=== PATIENT | female | born 1965 | race Caucasian/White ===

== ENCOUNTER 2016-03-12 22:21 | Emergency (ER) | payer OTHER ==
[~2016-03-12] VITALS: Ht 170.2 cm; Wt 70.9 kg
[~2016-03-12 22:21] MED LIST: ACET-1311 PO; FLUO40CA8 PO; METH10TA4 PO; MULT-602 PO; NEOM1SUS21 OTR
[2016-03-12 22:23] VITALS: BP 145/81; PULSE 97; TEMP 36.4; O2SAT 98; Ht 170.2 cm; Wt 70.9 kg
[2016-03-12] MEDS ORDERED: ERYTHROMYCIN OP OINT 1 GM PKT OP STA (22:39)
--- NOTE | 2016-03-12 22:42 | EMERGENCY ROOM VISIT NOTE ---
ED Visit Note First contact with patient: 22:27 CHIEF COMPLAINT: Shoulder pain HISTORY OF PRESENT ILLNESS: This 50-year-old female patient presents to the emergency department ambulatory complaining of right shoulder pain. The patient reports that she has had chronic issues with a right shoulder. She states that she "needs surgery." She has been evaluated here for the shoulder pain in the past and states that she was told she needed to follow up with a primary care provider. The patient states she had been planning on moving away , but decided to stay in the area and has still not made an appointment with a primary care provider. She reports she was putting [place] decorations away today and lifted something heavy, causing increase of her pain. She rates her discomfort an 8/10. She denies taking anything at home for her pain. The pain increases with any range of motion of arm. She does have full range of motion of the shoulder. She denies any numbness or weakness of the arm. She denies any chest or back pain. The patient also reports she has some pain and swelling of her left lower eyelid. She reports this started today. She is unsure if she is allergic to something. She denies any trauma to the eye. She denies any drainage from the eye or difficulty with vision. REVIEW OF SYSTEMS: A 6 system review of systems was performed with positives and pertinent negatives in the HPI. ALLERGIES: Toradol, NSAIDs, tramadol MEDICATIONS: See med list PMH: No significant past medical history SOCIAL HISTORY: The patient lives locally with her family. PHYSICAL EXAM: Vital Signs: Reviewed nurse's notes, vital signs stable. GENERAL : This is a 50-year-old female, in no acute distress, but appears to be in pain , well-developed, well-nourished. HEENT: PERRLA, EOMs intact. There is erythema and swelling of the medial left lower lid consistent with a 40 lump. MUSCULOSKELETAL: There is no deformity in the contour of the right shoulder and there are no kvng deformities noted. There is negative sulcus sign. There is tenderness over the anterior shoulder. The patient's range of motion is full. Supraspinatus strength 5/5. There is no clavicle tenderness. No tenderness of the humerus, elbow, wrist, or hand. [employer] strength 5/5. Radial pulse 2+. NECK: No tenderness to palpation over the cervical spine. HEART: Regular rate and rhythm without murmurs gallops or rubs. LUNGS: Clear to auscultation bilaterally without wheezes, rales or rhonchi. No accessory muscle use. No retractions. NEURO: The patient is alert and oriented to person, place, and time. Normal sensation to light and sharp touch. Capillary refill less than 2 seconds. EMERGENCY DEPARTMENT COURSE: I examined the patient. She has been seen here previously for chronic shoulder pain. There has been no new trauma to the shoulder to warrant imaging. Her exam is benign. I initially discussed possibly giving the patient a home pack of medication for her shoulder pain. However, after speaking with the patient it became clear that she was intoxicated. The patient repeated multiple questions and seemed to have a hard time understanding what I was saying. I do not feel comfortable prescribing her any pain medication. I did explain this to her. I did agree to give her a sling and erythromycin ophthalmic ointment for the stye. She was instructed to follow-up with orthopedics or primary care provider. Case management also spoke with the patient and gave her information for local primary care providers. She was informed that the emergency Department is not the appropriate place to seek pain control for chronic pain. She verbalized understanding of my assessment and treatment plan and was discharged home in good condition. The patient was independently evaluated by Dr. Bauman, ED attending physician, who agreed with my assessment and treatment plan. DIAGNOSIS: Shoulder pain, stye Current/Historical Medications Scheduled Fluoxetine (Prozac), 10 MG PO DAILY Fluoxetine (Prozac), 20 MG PO DAILY Methylphenidate (Ritalin), 10 MG PO QAM Methylphenidate (Ritalin), 10 MG PO QD@1200 Multiple Vitamins W/ Minerals (Womens 50+ Multi Vitamin), 1 TAB PO DAILY Scheduled PRN Acetaminophen (Acetaminophen), 1,000 MG PO UD PRN for Pain or Fever Allergies Coded Allergies: Ketorolac (Verified Allergy, Unknown, 03/12/16) Povidone Iodine (Verified Allergy, Unknown, ., 03/12/16) Tramadol (Verified Allergy, Unknown, 03/12/16) Uncoded Allergies: NONSTEROIDAL (Allergy, Unknown, 04/12/09) OPIATEAGONISTS (Allergy, Unknown, 04/12/09) Vital Signs Date Time Temp Pulse Resp B/P Pulse Ox O2 Delivery O2 Flow Rate FiO2 03/12/16 22:23 36.4 97 20 145/81 98 Room Air Medications Administered Medications (Trade) Dose Ordered Sig/Sandra Route Start Time Stop Time Status Last Admin Dose Admin Erythromycin (Erythromycin Oph Oint) 1 appln NOW STAT OP 03/12/16 22:39 03/12/16 22:40 DC 03/12/16 22:39 1 APPLN Departure Information Impression Primary Impression: Chronic right shoulder pain Additional Impression: Hordeolum externum (stye) Dispostion Home / Self-Care Condition GOOD Referrals No Doctor, Assigned (PCP) Cristóbal Villalba D.O. Patient Instructions A Signature Page, [facility] Additional Instructions The emergency department is not able to treat your chronic pain. You have been prescribed Erythromycin Opthalmic ointment. This is an antibiotic ointment which will help prevent an infection from developing in your affected eye. You should apply a 1 cm ribbon of the ointment to the lower part of the affected eye up to 6 times per day for the next 10 days. Wear the sling as needed for your comfort. You should take the arm out of the sling several times daily and perform range of motion exercises. For pain control, you can use the following prbl-ght-nstblyb medicines (if >12 yo): - Regular strength (325mg/tab) Tylenol (acetaminophen) 2 tabs every 4-6 hours as needed. Do not exceed 12 tablets in a 24 hour period. Avoid taking more than 4 grams (4000 mg) of Tylenol per day. This includes any other sources of acetaminophen you may take on a regular basis. - Regular strength (200 mg/tab) Advil (ibuprofen) 1-2 tabs every 4-6 hours as needed. Do not exceed a dose of 3200 mg per day. Follow-up with a primary care provider or orthopedics.
[2016-03-12] MEDS ORDERED: ACET500T57 PO (22:43)
[2016-03-12] MEDS ORDERED: METH10TA4 PO (22:46)
[2016-03-12] MEDS ORDERED: FLUO20CA35 PO (22:48)
[2016-03-12] MEDS ORDERED: FLUO10CA48 PO (22:48)
--- NOTE | 2016-03-12 23:00 | EMERGENCY ROOM VISIT NOTE ---
ED Visit Note First contact with patient: 22:27 I have seen and examined this patient with Candy Balderas and generally agree with the treatment plan as discussed. Current/Historical Medications Scheduled Fluoxetine (Prozac), 10 MG PO DAILY Fluoxetine (Prozac), 20 MG PO DAILY Methylphenidate (Ritalin), 10 MG PO QAM Methylphenidate (Ritalin), 10 MG PO QD@1200 Multiple Vitamins W/ Minerals (Womens 50+ Multi Vitamin), 1 TAB PO DAILY Scheduled PRN Acetaminophen (Acetaminophen), 1,000 MG PO UD PRN for Pain or Fever Allergies Coded Allergies: Ketorolac (Verified Allergy, Unknown, 03/12/16) Povidone Iodine (Verified Allergy, Unknown, ., 03/12/16) Tramadol (Verified Allergy, Unknown, 03/12/16) Uncoded Allergies: NONSTEROIDAL (Allergy, Unknown, 04/12/09) OPIATEAGONISTS (Allergy, Unknown, 04/12/09) Vital Signs Date Time Temp Pulse Resp B/P Pulse Ox O2 Delivery O2 Flow Rate FiO2 03/12/16 22:23 36.4 97 20 145/81 98 Room Air Departure Information Impression Primary Impression: Chronic right shoulder pain Additional Impression: Hordeolum externum (stye) Dispostion Home / Self-Care Condition GOOD Referrals No Doctor, Assigned (PCP) Cristóbal Villalba D.O. Forms HOME CARE DOCUMENTATION FORM, IMPORTANT VISIT INFORMATION Patient Instructions A Signature Page, [facility] Additional Instructions The emergency department is not able to treat your chronic pain. You have been prescribed Erythromycin Opthalmic ointment. This is an antibiotic ointment which will help prevent an infection from developing in your affected eye. You should apply a 1 cm ribbon of the ointment to the lower part of the affected eye up to 6 times per day for the next 10 days. Wear the sling as needed for your comfort. You should take the arm out of the sling several times daily and perform range of motion exercises. For pain control, you can use the following rfer-icf-cwugokr medicines (if >12 yo): - Regular strength (325mg/tab) Tylenol (acetaminophen) 2 tabs every 4-6 hours as needed. Do not exceed 12 tablets in a 24 hour period. Avoid taking more than 4 grams (4000 mg) of Tylenol per day. This includes any other sources of acetaminophen you may take on a regular basis. - Regular strength (200 mg/tab) Advil (ibuprofen) 1-2 tabs every 4-6 hours as needed. Do not exceed a dose of 3200 mg per day. Follow-up with a primary care provider or orthopedics.
== END 2016-03-12 23:03 | disposition home or self-care (01) ==
LOC: C.EDB 22:23 → C.EDA 23:03
DX: M25.511 Pain in right shoulder (principal); G89.29 Other chronic pain; H00.025 Hordeolum internum left lower eyelid; Z88.8 Allergy status to other drugs, medicaments and biological substances; Z79.899 Other long term (current) drug therapy

== ENCOUNTER 2017-03-11 00:05 | Emergency (ER) | payer OTHER ==
[~2017-03-11] VITALS: Ht 170.2 cm; Wt 62.6 kg
[~2017-03-11 00:05] MED LIST changes: -ACET-1311 PO; +ACET500T58 PO; +FLUO10CA48 PO; +FLUO20CA35 PO; -FLUO40CA8 PO; -NEOM1SUS21 OTR
[2017-03-11 00:09] VITALS: Ht 170.2 cm; Wt 62.6 kg
[2017-03-11] MEDS ORDERED: ONDANSETRON INJ 2 MG/ML 2 ML VIAL IV STA (00:28)
[2017-03-11] MEDS ORDERED: CLON1TAB3 PO (00:38)
[2017-03-11] MEDS ORDERED: MoRPHine SULFATE 2 MG/ML CARP IV STA (01:10)
[2017-03-11 01:11] LABS: BASO % 0.5 %; BASO ABS # 0.06 K/uL (0-0.2); EOS % 2.7 %; EOS ABS # 0.36 K/uL (0-0.5); HEMATOCRIT 37.4 % (37-47); IG# 0.02 K/uL (0.00-0.02); LYMPH % 29.1 %; LYMPH ABS # 3.82 K/uL (1.2-3.4); MEAN CELL VOLUME 92.3 fL (80-100); MEAN CORPUSCULAR HEMOGLOBIN 32.1 pg (25-34); MEAN CORPUSCULAR HGB CONC 34.8 g/dl (32-36); MEAN PLATELET VOLUME 11.8 fL (7.4-10.4); MONO % 6.7 %; MONO ABS # 0.88 K/uL (0.11-0.59); NEUT % 60.8 %; NEUT ABS # 7.97 K/uL (1.4-6.5); PLATELET COUNT 196 K/uL (130-400); RED CELL DISTRIBUTION WIDTH CV 12.7 % (11.5-14.5); RED CELL DISTRIBUTION WIDTH SD 43.1 fL (36.4-46.3); WHITE BLOOD COUNT 13.11 K/uL (4.8-10.8)
--- NOTE | 2017-03-11 01:13 | EMERGENCY ROOM VISIT NOTE ---
History First contact with patient: 00:14 Chief Complaint: KIDNEY STONE Stated Complaint: KIDNEY STONE History of Present Illness The patient is a 51 year old female who presents to the Emergency Room with complaints of left sided flank pain and abdominal pain. The patient reports that she has had pain in her left flank radiating into her lower abdomen for the past 1.5 hours. She has a history of kidney stones multiple years ago and does state that she has been told within the past year that she has a stone in the left kidney. She states that her pain comes and goes. She rates the discomfort a 6/10. She did not take anything for her pain tonight. She does report increased urinary frequency and denies any blood in the urine. The patient has had lithotripsy in the past. She does report that she has not had a menstrual period for the past 3 months, but did have some spotting a few weeks ago. She reports some nausea but denies any vomiting. She denies any changes in her bowel movements or fevers. She denies any other medical problems. Review of Systems A complete 10 point review of systems was reviewed with the patient with pertinent positives and negatives as per history of present illness. All else were negative. Past Medical/Surgical History Medical Problems: (1) Anxiety State Nos (2) Attn Deficit W Hyperact (3) Calculus Of Kidney (4) Emphysema Nec (5) Esophageal Reflux (6) Nicotine Dependence, Cigarettes, Uncomplicated Family History FH: cancer FH: heart disease FH: kidney disease Social History Smoking Status: Current Every Day Smoker Alcohol Use: none Drug Use: none Occupation Status: unemployed Current/Historical Medications Scheduled Cefdinir (Omnicef), 300 MG PO Q12H Clonazepam (Klonopin), 1 MG PO HS Fluoxetine (Prozac), 10 MG PO DAILY Fluoxetine (Prozac), 20 MG PO DAILY Methylphenidate (Ritalin), 10 MG PO BID Methylphenidate (Ritalin), 5 MG PO QAM Multiple Vitamins W/ Minerals (Womens 50+ Multi Vitamin), 1 TAB PO DAILY Scheduled PRN Acetaminophen (Acetaminophen), 1,000 MG PO UD PRN for Pain or Fever Physical Exam Vital Signs Date Time Temp Pulse Resp B/P (MAP) Pulse Ox O2 Delivery O2 Flow Rate FiO2 03/11/17 03:08 36.7 70 17 152/92 97 03/11/17 01:25 70 17 152/92 97 Room Air 1/4/18 00:09 36.7 83 18 98 Room Air Physical Exam VITALS: Vitals are noted on the nurse's note and reviewed by myself. Vital signs stable. GENERAL: This is a 51-year-old female, slightly anxious appearing, very thin. SKIN: The skin was without rashes. HEART: Regular rate and rhythm without murmurs gallops or rubs. LUNGS: Clear to auscultation bilaterally without wheezes, rales or rhonchi. ABDOMEN: Positive bowel sounds x 4. Soft, moderate suprapubic tenderness to palpation. Mild left CVA tenderness. No guarding or rebound tenderness. NEURO: Patient was alert and oriented to person place and time. Medical Decision & Procedures ER Provider Diagnostic Interpretation: CT ABDOMEN AND PELVIS WITHOUT CONTRAST: No obstructing calculus or hydronephrosis. Multiple nonobstructing bilateral renal calculi, including large staghorn calculus in the upper left kidney. These have increased in size and number since prior. Right renal cysts. Fluid-filled loops of small bowel with question mild wall thickening in the left hemiabdomen. Correlate for enteritis. No evidence of bowel obstruction. No free air. Normal appendix. Radiologist: Seferino Morrow MD Laboratory Results 03/11/17 01:02 Red Blood Count 4.05, Mean Corpuscular Volume 92.3, Mean Corpuscular Hemoglobin 32.1, Mean Corpuscular Hemoglobin Concent 34.8, Mean Platelet Volume 11.8, Neutrophils (%) (Auto) 60.8, Lymphocytes (%) (Auto) 29.1, Monocytes (%) (Auto) 6.7, Eosinophils (%) (Auto) 2.7, Basophils (%) (Auto) 0.5, Neutrophils # (Auto) 7.97, Lymphocytes # (Auto) 3.82, Monocytes # (Auto) 0.88, Eosinophils # (Auto) 0.36, Basophils # (Auto) 0.06 03/11/17 01:02 Test 03/11/17 00:46 03/11/17 01:02 Urine Color YELLOW Urine Appearance CLOUDY (CLEAR) Urine pH 7.0 (4.5-7.5) Urine Specific [place] 1.021 (1.000-1.030) Urine Protein NEG (NEG) Urine Glucose (UA) NEG (NEG) Urine Ketones NEG (NEG) Urine Occult Blood 2+ (NEG) Urine Nitrite NEG (NEG) Urine Bilirubin NEG (NEG) Urine Urobilinogen NEG (NEG) Urine Leukocyte Esterase LARGE (NEG) Urine WBC (Auto) >30 /hpf (0-5) Urine RBC (Auto) 10-30 /hpf (0-4) Urine Hyaline Casts (Auto) 1-5 /lpf (0-5) Urine Epithelial Cells (Auto) 10-20 /lpf (0-5) Urine Bacteria (Auto) 4+ (NEG) Urine Test NEG (NEG) White Blood Count 13.11 K/uL (4.8-10.8) Red Blood Count 4.05 M/uL (4.2-5.4) Hemoglobin 13.0 g/dL (12.0-16.0) Hematocrit 37.4 % (37-47) Mean Corpuscular Volume 92.3 fL (80-100) Mean Corpuscular Hemoglobin 32.1 pg (25-34) Mean Corpuscular Hemoglobin Concent 34.8 g/dl (32-36) Platelet Count 196 K/uL (130-400) Mean Platelet Volume 11.8 fL (7.4-10.4) Neutrophils (%) (Auto) 60.8 % Lymphocytes (%) (Auto) 29.1 % Monocytes (%) (Auto) 6.7 % Eosinophils (%) (Auto) 2.7 % Basophils (%) (Auto) 0.5 % Neutrophils # (Auto) 7.97 K/uL (1.4-6.5) Lymphocytes # (Auto) 3.82 K/uL (1.2-3.4) Monocytes # (Auto) 0.88 K/uL (0.11-0.59) Eosinophils # (Auto) 0.36 K/uL (0-0.5) Basophils # (Auto) 0.06 K/uL (0-0.2) RDW Standard Deviation 43.1 fL (36.4-46.3) RDW Coefficient of Variation 12.7 % (11.5-14.5) Immature Granulocyte % (Auto) 0.2 % Immature Granulocyte # (Auto) 0.02 K/uL (0.00-0.02) Anion Gap 1.0 mmol/L (3-11) Est Creatinine Clear Calc Drug Dose 107.9 ml/min Estimated GFR () 122.3 Estimated GFR (Non- 105.5 BUN/Creatinine Ratio 27.2 (10-20) Calcium Level 8.4 mg/dl (8.5-10.1) Total Bilirubin 0.2 mg/dl (0.2-1) Aspartate Amino Transf (AST/SGOT) 21 U/L (15-37) Alanine Aminotransferase (ALT/SGPT) 36 U/L (12-78) Alkaline Phosphatase 63 U/L (45-117) Total Protein 6.8 gm/dl (6.4-8.2) Albumin 3.3 gm/dl (3.4-5.0) Globulin 3.5 gm/dl (2.5-4.0) Albumin/Globulin Ratio 0.9 (0.9-2) Medications Administered Medications (Trade) Dose Ordered Sig/Sandra Route Start Time Stop Time Status Last Admin Dose Admin Ondansetron HCl (Zofran Inj) 4 mg NOW STAT IV 03/11/17 00:28 03/11/17 00:33 DC 03/11/17 01:03 4 MG Morphine Sulfate (MoRPHine SULFATE INJ) 2 mg NOW STAT IV 03/11/17 01:10 03/11/17 01:11 DC 03/11/17 01:14 2 MG Ceftriaxone Sodium (Rocephin Inj) 1 gm NOW STAT IV 03/11/17 01:49 03/11/17 01:50 DC 03/11/17 02:09 1 GM Medical Decision Differential diagnosis includes kidney stone, pyelonephritis, UTI, gastroenteritis, herpes zoster, among others. The patient is a 51-year-old female who presents today complaining of suprapubic pain. Labs revealed a leukocytosis of 13.11. Urinalysis was suggestive of infection, with 4+ bacteria, >30 WBCs, leuk esterase and occult blood. Urine was negative. CT showed no evidence of kidney stone. Patient does appear to have an enteritis. Patient's discomfort is likely due to the UTI. She was given Rocephin and will be placed on Omnicef pending the culture. Patient was encouraged to push fluids and follow up with her PCP. Based on the patient's presentation and work up, I feel the patient is stable for outpatient treatment. The patient was educated to return to the emergency department for any worsening of their current condition, such as fevers, vomiting or new/concerning symptoms. She will follow up with her PCP. The patient was independently evaluated by Dr. Burrell, ED attending physician , who agreed with my assessment and treatment plan. Blood Pressure Screening Patient's blood pressure: Elevated blood pressure Blood pressure disposition: Elevated BP felt to be situational Impression Primary Impression: Urinary tract infection Departure Information Dispostion Home / Self-Care Condition GOOD Prescriptions Cefdinir (OMNICEF) 300 Mg Cap 300 MG PO Q12H for 7 Days, #14 CAP Prov: Candy Balderas ., ASTRID 03/11/17 Referrals No Doctor, Assigned (PCP) Patient Instructions My [facility] Additional Instructions You have been treated in the Emergency Department for a Urinary Tract Infection (UTI). You have been prescribed Omnicef to be taken twice daily for 7 days. This is an antibiotic. All antibiotics have the potential to cause diarrhea. Stop this medication and contact a medical provider if you were to develop any significant adverse side effects including: wheezing, shortness of breath, passing out, vomiting, or a diffuse rash. Always take antibiotics as directed and COMPLETE the ENTIRE course regardless of the improvement of your symptoms. For pain control, you can use the following mucu-krb-pvqnwfs medicines (if >12 yo): - Regular strength (325mg/tab) Tylenol (acetaminophen) 2 tabs every 4-6 hours as needed. Do not exceed 12 tablets in a 24 hour period. Avoid taking more than 4 grams (4000 mg) of Tylenol per day. This includes any other sources of acetaminophen you may take on a regular basis. - Regular strength (200 mg/tab) Advil (ibuprofen) 1-2 tabs every 4-6 hours as needed. Do not exceed a dose of 3200 mg per day. Drink plenty of water and stay well hydrated. As with any trip to the Emergency Department, you should follow-up with your Primary Care Provider from today's visit. Return to the emergency department if your symptoms persist despite treatment plan outlined above or if the following symptoms occur: fevers, chills, back pain, nausea/vomiting, or blood in your urine. Problem Qualifiers Primary Impression: Urinary tract infection Urinary tract infection type: acute cystitis Hematuria presence: with hematuria Qualified Codes: N30.01 - Acute cystitis with hematuria
[2017-03-11 01:39] LABS: ALBUMIN 3.3 gm/dl (3.4-5.0); CALCIUM 8.4 mg/dl (8.5-10.1); CREATININE 0.6 mg/dl (0.60-1.20)
[2017-03-11 01:42] LABS: TOTAL PROTEIN 6.8 gm/dl (6.4-8.2)
[2017-03-11] MEDS ORDERED: CEFTRIAXONE SOD INJ 1 GM ADDVIAL IV STA (01:49)
[2017-03-11] MEDS ORDERED: CEFD300C2 PO (02:48)
[2017-03-11 03:08] VITALS: BP 152/92; PULSE 70; TEMP 36.7; O2SAT 97
--- NOTE | 2017-03-11 05:58 | EMERGENCY ROOM VISIT NOTE ---
ED Visit Note First contact with patient: 00:14 I have personally evaluated and examined this patient. I agree with assessment and plan of Candy Balderas PA-C.
--- NOTE | 2017-03-11 06:21 | DIAGNOSTIC IMAGING REPORT ---
ABD/PELVIS WITHOUT FOR STONE CT DOSE: 528.57 mGy.cm HISTORY: Flank pain left flank pain, hx stones TECHNIQUE: Multiaxial CT images of the abdomen and pelvis were performed without the use of intravenous and oral contrast according to the standard department stone protocol. A dose lowering technique was utilized adhering to the principles of ALARA. COMPARISON STUDY: None. FINDINGS: Lung bases are clear. Liver spleen and pancreas are unremarkable. Kidneys demonstrate bilateral renal nonobstructing calcifications. This includes a partial left renal partial staghorn calculus in the upper pole. There is no evidence for hydronephrosis or obstructing urinary tract calculus. Bowel pattern is nonobstructive. The appendix is normal. The uterus is anteflexed. Bladder is midline. IMPRESSION: Bilateral renal nonobstructing calcifications. No acute process of the abdomen or pelvis. The above report was generated using voice recognition software. It may contain grammatical, syntax or spelling errors. Electronically signed by: Matthieu Mayorga M.D. 03/11/2017 6:20 AM Dictated Date/Time: 03/11/2017 6:18 AM
== END 2017-03-11 03:09 | disposition home or self-care (01) ==
LOC: C.EDB 00:06 → C.EDA 03:09
DX: N30.01 Acute cystitis with hematuria (principal); D72.829 Elevated white blood cell count, unspecified; R03.0 Elevated blood-pressure reading, without diagnosis of hypertension; Z87.442 Personal history of urinary calculi; Z82.49 Family history of ischemic heart disease and other diseases of the circulatory system; Z84.1 Family history of disorders of kidney and ureter

== ENCOUNTER 2017-10-06 22:30 | Emergency (ER) | payer OTHER ==
[~2017-10-06] VITALS: Ht 170.2 cm; Wt 57.9 kg
[~2017-10-06 22:30] MED LIST changes: +CLON1TAB4 PO; +DXY100 PO
[2017-10-06 22:31] VITALS: TEMP 36.9; Ht 170.2 cm; Wt 57.9 kg
--- NOTE | 2017-10-06 23:42 | EMERGENCY ROOM VISIT NOTE ---
History Report prepared by Theron: Mady Foster Under the Supervision of: Dr. Mulu Winkler D.O. First contact with patient: 23:03 Chief Complaint: MENTAL HEALTH EVALUATION Stated Complaint: MENTAL HEALTH EVAL History of Present Illness The patient is a 52 year old female who presents to the Emergency Room for a mental health evaluation. The patient states that she has been with her significant other for 6 years and there was a point that they broke it off, but she is back with him. She states that she got into an argument with her significant others sister and decided to leave instead of fight back with her. She reports that she took the new car she just bought today and left. She reports that she talked to [facility], [employer], [employer], and the people in the [employer] [facility], but no one could help her .The patient states that she was just looking for somewhere to stay. She states that she told the people at the [facility] that she was going to "302 herself" to have somewhere to stay and have "good food." She reports that the woman there told her she had to be suicidal to be 302. She states that she told the woman she was going to tell the she was so she had somewhere to stay. The patient states that all day today she was just on edge because of the situation of having no where to stay, being on her menstrual cycle, having no feminine products, and being hungry. The patient states that she was staying at [facility] when state police picked her up. She reports that they mentioned a 302 so she assumed it was due to what she said at the [facility]. She notes that she was in an inpatient psychiatric facility once before in the . The patient complains of abdominal cramping from her menstrual cycle. The patient denies urinary symptoms, abnormal bowel movements, auditory hallucinations, visual hallucinations, ever having hallucinations, seeing a psychiatrist, recently using drugs, and recently using alcohol. The patient notes that she occasionally has a beer or wine cooler and once in a while smokes some marijuana. Source of History: patient Onset: today Quality: other (mental health) Timing: other (episode) Modifying Factors (Worsening): other (significant other's sister) Associated Symptoms: + abdominal pain (cramping), No urinary symptoms Note: The patient denies abnormal bowel movements, auditory hallucinations, and visual hallucinations. Review of Systems See HPI for pertinent positives & negatives. A total of 10 systems reviewed and were otherwise negative. Past Medical & Surgical Medical Problems: (1) Anxiety State Nos (2) Attn Deficit W Hyperact (3) Calculus Of Kidney (4) Emphysema Nec (5) Esophageal Reflux (6) Nicotine Dependence, Cigarettes, Uncomplicated Family History FH: cancer FH: heart disease FH: kidney disease Social History Smoking Status: Never Smoker Alcohol Use: occasionally Drug Use: marijuana Marital Status: in relationship Occupation Status: unemployed Current/Historical Medications Scheduled Fluoxetine (Prozac), 10 MG PO DAILY Fluoxetine (Prozac), 20 MG PO DAILY Methylphenidate (Ritalin), 10 MG PO BID Methylphenidate (Ritalin), 5 MG PO QAM Multiple Vitamins W/ Minerals (Womens 50+ Multi Vitamin), 1 TAB PO DAILY Scheduled PRN Acetaminophen (Acetaminophen), 1,000 MG PO UD PRN for Pain or Fever Clonazepam (Klonopin), 1 MG PO HS PRN for Sleep Allergies Coded Allergies: Ketorolac (Verified Allergy, Unknown, 10/06/17) Povidone Iodine (Verified Allergy, Unknown, ., 10/06/17) Tramadol (Verified Allergy, Unknown, 10/06/17) Uncoded Allergies: NONSTEROIDAL (Allergy, Unknown, 04/12/09) OPIATEAGONISTS (Allergy, Unknown, 04/12/09) Physical Exam Vital Signs Date Time Temp Pulse Resp B/P (MAP) Pulse Ox O2 Delivery O2 Flow Rate FiO2 10/07/17 00:37 74 93/54 99 Room Air 10/06/17 22:31 36.9 81 18 142/90 97 Room Air Physical Exam HEENT: Head - normocephalic and atraumatic Pupils are equal, round, and reactive to light. Extraocular eye muscles are intact, and sclera are anicteric. Nose - moist nasal mucosa without discharge. Mouth - moist buccal mucosa. Oropharynx is nonerythematous and there is no tonsillar exudate or edema noted. Neck: Supple; no JVD, nuchal rigidity, cervical lymphadenopathy. Heart: Regular rate and rhythm. There is a normal S1 and S2 with no murmurs, clicks, or gallops appreciated. Lungs: Clear to auscultation bilaterally with no wheezes, rales, or rhonchi. Abdomen: Soft, completely nontender, nondistended, with good bowel sounds. There are no palpable pulsatile masses or hepatosplenomegaly. There is no guarding, rigidity, or rebound noted. Extremities: No evidence of cyanosis, clubbing, or edema. There are easily palpable peripheral pulses. Skin: warm and dry with good turgor and no rashes. Psych: Elevated affect at times. Describes making suicidal statements so she could be 302 for the comfort and food. At times appears to be distracted by other voices. Medical Decision & Procedures Laboratory Results 10/06/17 23:40 10/06/17 23:40 Test 10/06/17 23:05 10/06/17 23:40 Urine Color YELLOW Urine Appearance CLEAR (CLEAR) Urine pH 6.5 (4.5-7.5) Urine Specific [place] 1.022 (1.000-1.030) Urine Protein TRACE (NEG) Urine Glucose (UA) NEG (NEG) Urine Ketones NEG (NEG) Urine Occult Blood 1+ (NEG) Urine Nitrite NEG (NEG) Urine Bilirubin NEG (NEG) Urine Urobilinogen NEG (NEG) Urine Leukocyte Esterase LARGE (NEG) Urine WBC (Auto) >30 /hpf (0-5) Urine RBC (Auto) 10-30 /hpf (0-4) Urine Hyaline Casts (Auto) 1-5 /lpf (0-5) Urine Epithelial Cells (Auto) 0-5 /lpf (0-5) Urine Bacteria (Auto) NEG (NEG) Urine Opiates Screen POS (NEG) Urine Methadone, Qualitative NEG (NEG) Urine Barbiturates NEG (NEG) Urine Phencyclidine (PCP) Level NEG (NEG) Ur Amphetamine/Methamphetamine NEG (NEG) MDMA (Ecstasy) Screen NEG (NEG) Urine Benzodiazepines Screen NEG (NEG) Urine Cocaine Metabolite NEG (NEG) Urine Marijuana (THC) NEG (NEG) Red Blood Count 4.18 M/uL (4.2-5.4) Mean Corpuscular Volume 92.6 fL (80-100) Mean Corpuscular Hemoglobin 31.8 pg (25-34) Mean Corpuscular Hemoglobin Concent 34.4 g/dl (32-36) RDW Standard Deviation 42.4 fL (36.4-46.3) RDW Coefficient of Variation 12.5 % (11.5-14.5) Mean Platelet Volume 11.5 fL (7.4-10.4) Anion Gap 9.0 mmol/L (3-11) Est Creatinine Clear Calc Drug Dose 75.2 ml/min Estimated GFR () 98.2 Estimated GFR (Non- 84.8 BUN/Creatinine Ratio 26.3 (10-20) Calcium Level 8.1 mg/dl (8.5-10.1) Total Bilirubin 0.2 mg/dl (0.2-1) Direct Bilirubin < 0.1 mg/dl (0-0.2) Aspartate Amino Transf (AST/SGOT) 38 U/L (15-37) Alanine Aminotransferase (ALT/SGPT) 47 U/L (12-78) Alkaline Phosphatase 74 U/L (45-117) Total Protein 6.7 gm/dl (6.4-8.2) Albumin 3.4 gm/dl (3.4-5.0) Thyroid Stimulating Hormone (TSH) 1.570 uIu/ml (0.300-4.500) Salicylates Level 2.8 mg/dl (2.8-20) Acetaminophen Level 2 ug/ml (10-30) Ethyl Alcohol mg/dL < 3.0 mg/dl (0-3) Laboratory results per my review. ED Course 2309: Past medical records reviewed. The patient was evaluated in room A8. A complete history and physical exam was performed. Labs were drawn as above. The 302 petition was reviewed. 0121: The patient was medically cleared at this time. 0208: I spoke to the senior case manager. He reports that he tried to contact the sister who was the petitioner of the 302 and was unable to get a hold of her. 0223: I reevaluated the patient and she is refusing inpatient psychiatric care. She would like to be discharged into the care of her boyfriend. The senior case manager is going to try to get a hold of her boyfriend. 0350: We were unable to get a hold of the boyfriend at this time. I had a discussion with the patient about her current situation and the concerns of others. The patient is willing to sign herself in voluntarily. 0506: The patient is requesting to go to the [facility]. They are going to search for a bed there. 0602: The patient was accepted at the [facility] and will go by [facility] this morning. Medical Decision The patient is a 52 year old female who presents to the Emergency Room for a mental health evaluation. Differential diagnoses include acute psychosis, drug abuse, mood disorder, thought disorder. LABS: Negative alcohol Tox screen positive for opiates Salicylate level of 2.8 Acetaminophen level of 2 BUN 21 Creatinine 0.8 Glucose 131 Normal TSH Normal H&H Normal white blood cells URINALYSIS: Trace Proteins 1+ blood Large leukocyte esterase Greater than 20 white blood cells 10-30 red blood cells Negative bacteria Will be sent for culture This is a 52-year-old female patient who presents to the emergency department after making some suicidal threats to her sister. Sister petitioned a 302 because she was concerned for the patient's safety. The patient was willing to admit herself voluntarily and agreed that she probably did need some help if others thought it was necessary. She has been accepted at the [facility] and will be transferred there by [facility] this morning. Medication Reconcilliation Current Medication List: was personally reviewed by me Blood Pressure Screening Patient's blood pressure: Elevated blood pressure Blood pressure disposition: Elevated BP felt to be situational Impression Primary Impression: Mood disorder Scribe Attestation The scribe's documentation has been prepared under my direction and personally reviewed by me in its entirety. I confirm that the note above accurately reflects all work, treatment, procedures, and medical decision making performed by me. Departure Information Dispostion Mental Health Acute Care Referrals No Doctor, Assigned (PCP) Patient Instructions [facility]
[2017-10-07 00:11] LABS: HEMATOCRIT 38.7 % (37-47); HEMOGLOBIN 13.3 g/dL (12.0-16.0); MEAN CELL VOLUME 92.6 fL (80-100); MEAN CORPUSCULAR HEMOGLOBIN 31.8 pg (25-34); MEAN CORPUSCULAR HGB CONC 34.4 g/dl (32-36); MEAN PLATELET VOLUME 11.5 fL (7.4-10.4); PLATELET COUNT 215 K/uL (130-400); RED CELL DISTRIBUTION WIDTH CV 12.5 % (11.5-14.5); RED CELL DISTRIBUTION WIDTH SD 42.4 fL (36.4-46.3); WHITE BLOOD COUNT 9.82 K/uL (4.8-10.8)
[2017-10-07 00:44] LABS: BLOOD UREA NITROGEN 21 mg/dl (7-18); GLUCOSE 131 mg/dl (70-99); SODIUM 138 mmol/L (136-145)
[2017-10-07 00:45] LABS: ALBUMIN 3.4 gm/dl (3.4-5.0); ALKALINE PHOSPHATASE 74 U/L (45-117); ALT/SGPT 47 U/L (12-78); AST/SGOT 38 U/L (15-37); CALCIUM 8.1 mg/dl (8.5-10.1); CARBON DIOXIDE 22 mmol/L (21-32); POTASSIUM 3.7 mmol/L (3.5-5.1); TOTAL PROTEIN 6.7 gm/dl (6.4-8.2)
[2017-10-07 07:49] VITALS: BP 124/86; PULSE 76; O2SAT 98
== END 2017-10-07 07:49 ==
LOC: C.EDB 22:31 → C.EDA 10-07 07:49
DX: F39 Unspecified mood [affective] disorder (principal); F41.9 Anxiety disorder, unspecified; F90.9 Attention-deficit hyperactivity disorder, unspecified type; Z79.899 Other long term (current) drug therapy; Z88.8 Allergy status to other drugs, medicaments and biological substances

== ENCOUNTER 2023-07-30 10:01 | Observation (INO) ==
--- NOTE | 2023-07-14 14:07 | Anesthesiology Consultation ---
Date of Service July 14, 2023 Assessment & Plan (1) Encounter for pre-operative examination: - check EKG STAT am DOS. - Per legal officer on 07/14/23: No known infectious disease contacts, current infectious disease symptoms in past 10 days or COVID positive test result in the past 30 days. Chart Review Chart Review: Acceptable Risk for Surgery and Patient NOT seen in Pre Admission Testing History Surgery Operation Date: 07/30/23 12:40 Proposed Procedures p Total Laparoscopic Hysterectomy, Bilateral Salpingo-Oophorectomy, Cystoscopy - Ned Gonzalez MD Height/Weight Height: 5 ft 7.5 in Weight: 61.235 kg Allergies Allergy/AdvReac Type Severity Reaction Status Date / Time ketorolac Allergy Intermediate FACE & Verified 07/14/23 13:06 NECK SWELL povidone-iodine Allergy Intermediate FAMILY HX Verified 07/14/23 13:06 OF ALLERGY tramadol Allergy Intermediate FACE & Verified 07/14/23 13:06 NECK SWELL Medications Home Medications Medication Instructions Recorded Confirmed Last Taken acetaminophen 500 mg tablet 1,000 mg PO TID PRN Pain 07/14/23 07/14/23 Unknown Past Medical History Medical History Abscess of axilla, left hx in 2013. no current issues. denies mrsa. History of hepatitis C unsure when she was diagnosed - treated and no current issues History of kidney stones (2017) Hx of abnormal cervical Pap smear Past Family History Family History Other Kidney stones No family history of adverse response to anesthesia Past Surgical History Surgical History H/O LEEP History of lithotripsy S/P ureteral stent placement Social History Smoking Status: Current every day smoker Smoking cigarettes per day: 15-20 Do You Dip or Chew Tobacco: No Hx Alcohol Use: No Hx Substance Use: No Testing Laboratory Results 07/07/23 WBC: 8.9 H/H: 13/41 PLATELETS: 247,000 SODIUM: 143 POTASSIUM: 4.2 CHLORIDE: 108 CO2: 26 BUN: 14 CREATININE: 0.7 GLUCOSE: 79 Other Testing Carotid doppler 05/13/22 < 50% stenosis ICA Normal duplex evaluation of the internal carotid artery
[2023-07-30] MEDS: LACTATED RINGER'S 1,000 ML IV SCH ×2 (10:45→18:18)
[2023-07-30] MEDS: LR 15ML/HR IV SCH (10:56)
[2023-07-30] MEDS ORDERED: ePHEDrine sulfate 50 MG/ML AMP IV PRN (11:02)
[2023-07-30] MEDS ORDERED: PROMETHAZINE HCL 6.25 MG in SODIUM CHLORIDE 0.9% 50 ML IV PRN (11:02)
[2023-07-30] MEDS ORDERED: ATROPINE SULFATE 0.1 MG/ML 10ML SYR IV PRN (11:02)
[2023-07-30] MEDS ORDERED: ONDANSETRON INJ 2 MG/ML 2 ML VIAL IV PRN (11:02)
--- NOTE | 2023-07-30 11:39 | History & Physical Bridge Note ---
Date of Service July 30, 2023 History & Physical Bridge Note I have examined the patient, reviewed the History & Physical and in the interval since the performance of the History & Physical I have noted the following changes of clinical significance: no changes noted
[2023-07-30] MEDS ORDERED: ONDANSETRON INJ 2 MG/ML 2 ML VIAL ONE (11:40)
[2023-07-30] MEDS ORDERED: SUGAMMADEX SODIUM 200 MG/2 ML VIAL IV ONE (11:40)
[2023-07-30] MEDS ORDERED: fentaNYL citrate PF 100 MCG/2 ML VIAL ONE (11:40)
[2023-07-30] MEDS ORDERED: MIDAZOLAM HCL 1 MG/ML 2ML VIAL ONE (11:40)
[2023-07-30] MEDS ORDERED: ROCURONIUM BROMIDE 10 MG/ML 5 ML VIAL IV ONE ×2 (11:40→13:13)
[2023-07-30] MEDS ORDERED: PROPOFOL IV EMULSION 10 MG/ML 20 ML VIAL IV ONE (11:40)
[2023-07-30] MEDS ORDERED: DEXAMETHASONE SOD INJ 4 MG/ML VIAL ONE (11:40)
[2023-07-30] MEDS ORDERED: ALBUT/IPRATROP 3MG/0.5MG NEB 3 ML VIAL INH PRN (12:02)
[2023-07-30] MEDS: ceFAZolin 2000MG 2,000 MG/15 ML SYR IV SCH (12:20)
[2023-07-30] MEDS ORDERED: METHYLENE BLUE 0.5% 10 ML VIAL ONE (13:37)
--- NOTE | 2023-07-30 14:07 | Electrocardiogram Report ---
Test Reason : Blood Pressure : / mmHG Vent. Rate : 071 BPM Atrial Rate : 071 BPM P-R Int : 148 ms QRS Dur : 100 ms QT Int : 424 ms P-R-T Axes : 058 008 006 degrees QTc Int : 460 ms Normal sinus rhythm Normal ECG When compared with ECG of 19-JUL-2018 19:31, No significant change was found Confirmed by Salinas Hernandez ([id number]) on 07/30/2023 2:07:18 PM Referred By: Ned Gonzalez Confirmed By:Salinas Hernandez
[2023-07-30] MEDS: FLOSEAL HEMOSTATIC MATRIX 10ML TOP ONE (14:24)
[2023-07-30] MEDS ORDERED: HYDROmorphone INJ 2 MG/ML SYR/VIAL ONE (14:42)
[2023-07-30] MEDS: BUPIVACAINE/EPINEPHRINE 0.5% MPF 1:200,000 30 ML VIAL ONE (14:42)
[2023-07-30] MEDS ORDERED: KETOROLAC 30 MG/ML VIAL IV PRN (15:00)
[2023-07-30] MEDS ORDERED: MAGNESIUM HYDROXIDE SUSP 30 ML UDC PO PRN (15:00)
[2023-07-30] MEDS ORDERED: oxyCODONE/ACETAMINOPHEN 5mg/325mg TAB PO PRN (15:00)
[2023-07-30] MEDS ORDERED: ZOLPIDEM TARTRATE 5 MG TAB PO PRN (15:00)
[2023-07-30] MEDS ORDERED: SIMETHICONE 80 MG CHEW PO PRN (15:00)
[2023-07-30] MEDS ORDERED: IBUPROFEN 600 MG TAB PO PRN (15:00)
[2023-07-30] MEDS: fentaNYL citrate PF 100 MCG/2 ML VIAL IV PRN (15:07)
--- NOTE | 2023-07-30 15:14 | Operative Report ---
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 Uterus is about 8 week size. Both ovaries ad tubes appear normal. Endometrial implants seen on left fallopian tube. Fluids IVF: 1500ml Urine ; 200 EBL; 10ml Specimens Uterus and cervix left and right ovaries and fallopian tubes Drains none Anesthesia Type General Complications none Indications Persistent HGSIL Description of Procedure FINDINGS: DESCRIPTION OF PROCEDURE: The patient was prepped and draped in normal sterile fashion in the dorsal lithotomy position. Krishnan catheter was placed without difficulty. An AdvincCarticipate uterine manipulator was placed in the uterus to help with colpotomy. Attention was paid to the abdominal part of the procedure where a supraumbilical incision was made and carried down to the fascia. Cj was used to grab the fascia. Veress needle was introduced into the abdomen at a 45-degree angle while tenting up the abdomen. Intra-abdominal placement was confirmed with a w ater-filled syringe. A water drop and suction test was performed. The abdomen was insufflated with CO2 gas. The Veress needle was removed and a 5 mm non bladed trocar was attached to a laparoscope was introduced into the abdomen under direct visualization. This was a non bladed trocar. Once inside the abdomen, laparoscope was repositioned. Inspection of the abdomen shows the findings as dictated above. Three more accessory ports were placed, two 5 mm accessory ports were placed in the lower abdomen on the contralateral side, in addition, an 11 mm trocar was placed on the left upper quadrant. General inspection of the abdomen and pelvis was performed as dictated above. There was an adhesion of omentum to the umbilicus. This omentum was examined. There was no bowel in the omentum, so the LigaSure was passed through one of the contralateral port and dissection of the omentum from the abdominal wall was performed. There was good hemostasis. Left and right fallopian tubes, the ureters, uterosacrals, bowels, appendix were examined and identified. LigaSure was passed through the left accessory port. The fallopian tube was identified and grabbed 4 cm from the cornua of the uterus with the LigaSure and transected. This was followed by opening of the left anterior leaf of the broad ligament. This allowed for fenestration of the posterior left broad ligament. The mid-section of the left fallopian tube, utero-ovarian and meso-ovarian pedicles were transected as well. Same procedure was performed on the contralateral side. The anterior broad ligament dissection was carried to the mid-section of the vesicouterine peritoneum over the bladder using the Harmonic scalpel. Same procedure was carried out on the contralateral side. The posterior broad ligament peritoneum was carefully dissected also from both sides over the uterosacral arch in order to displace the ureters laterally. Using traction and countertraction, the [place] retractor and irrigation probe was used to further dissect the bladder off the lower segment of the uterus. Bladder pillars and pubovesical fascia was dissected as well. Harmonic scalpel was used to obtain hemostasis where needed. Uterine manipulator was now palpable over the vaginal tissue. The right uterine pedicles were skeletonized and coagulated with the LigaSure. Good hemostasis was obtained. Same procedure was performed on the contralateral side. Cardinal ligaments were transected on both sides. Once good hemostasis was obtained, colpotomy was performed using the LigaSure hook from both sides. Uterus was r emoved through the vagina while still attached to the uterine manipulator. The bulb was attached to the uterine manipulator was reinserted into the vagina to establish pneumoperitoneum. With a grasper, the remaining section of the left ovary and tube were positioned anteromedially. Both tube and ovary removed. Same procedure was performed on contralateral side. EndoStitch closure device was passed through the 11 mm port on the left. Using the [place] grasper for traction, colpotomy closure was performed. The uterosacral ligaments incorporated into the closure in order to decrease the risk of prolapse. Lapro ties were used with the EndoStitch. The 11-mm trocar site was closed with a Norris-Knowles under direct visualization. Attention was paid to the cystoscopy part of the procedure where a cystoscope was introduced into the bladder. There are no sutures seen in the bladder. There were no gross blood seen in the bladder as well. The bubble sign is noted showing the bladder was a close cavity. Both ureters were seen and there was efflux from both uterus. The skin incisions are closed with Dermabond, except for the 11-mm trocar site, which was closed with 4-0 Monocryl. The patient was returned to recovery in stable condition. Inspection of the vagina shows the vaginal cuff was intact. All instruments were removed from the vagina and the bladder and accounted for x2. I attest to the content of the Intraoperative Record and any orders documented therein. Any exceptions are noted below.
[2023-07-30] MEDS ORDERED: HYDROmorphone INJ 1 MG/ML SYRINGE IV PRN (15:23)
[2023-07-30] MEDS: HYDROmorphone INJ 2 MG/ML SYR/VIAL ONE (15:24)
[2023-07-30] MEDS ORDERED: ACETAMINOPHEN 1000 MG/100 ML IV IV ONE (15:26)
[2023-07-30] MEDS: ACETAMINOPHEN 1,000 MG/100 ML VIAL IV STA (15:30)
--- NOTE | 2023-07-30 16:12 | Anesthesiology Progress Note ---
Date of Service July 30, 2023 Anesthesia Post Procedure Vital Signs Vital Signs: Temp Pulse Resp BP BP Pulse Ox O2 Del Method 07/30/23 16:00 36.0 C L 86 16 117/72 92 Room Air 07/30/23 15:50 77 12 113/68 93 Room Air 07/30/23 15:40 81 13 110/75 95 Room Air 07/30/23 15:30 90 20 119/77 96 Room Air 07/30/23 15:20 93 H 14 110/92 100 Room Air 07/30/23 15:10 102 H 16 107/73 93 Room Air 07/30/23 15:01 36.0 C L 77 17 120/76 100 Oxymask 07/30/23 10:34 36.8 C 73 16 122/80 97 Room Air O2 Flow Rate 07/30/23 16:00 07/30/23 15:50 07/30/23 15:40 07/30/23 15:30 07/30/23 15:20 07/30/23 15:10 07/30/23 15:01 6 07/30/23 10:34 Pain Intensity Abdomen: Pain Intensity: 4 Transfer of Care Handoff Completed per policy Notes Mental Status: alert / awake / arousable Patient Amnestic to Procedure: Yes Nausea / Vomiting: adequately controlled Pain: adequately controlled Airway Patency, RR, SpO2: stable & adequate BP & HR: stable & adequate Hydration State: stable & adequate Anesthetic Complications: no major complications apparent
[2023-07-30] MEDS: NICOTINE 14 MG/24 HR PATCH TD SCH (18:10)
[2023-07-30] MEDS: oxyCODONE/ACETAMINOPHEN 5mg/325mg TAB PO PRN (18:16)
[2023-07-30] MEDS: ACETAMINOPHEN 325 MG TAB PO PRN (20:21)
[2023-07-30] MEDS: DOCUSATE SODIUM 100 MG CAP PO SCH (21:19)
[2023-07-31] MEDS: HYDROmorphone INJ 0.5 MG/0.5 ML SYR IV PRN (02:01)
[2023-07-31] MEDS: IBUPROFEN 600 MG TAB PO PRN (07:51)
[2023-07-31] MEDS: ONDANSETRON INJ 2 MG/ML 2 ML VIAL IV PRN (07:52)
[2023-07-31 09:20] LABS: Basophils # (auto) 0.03 K/uL (0.00-0.20); Basophils % (auto) 0.2 %; Eosinophils # (auto) 0.04 K/uL (0.00-0.50); Eosinophils % (auto) 0.3 %; Hematocrit (blood only) 36.1 % (37.0-47.0); Hemoglobin 12.2 g/dl (12.0-16.0); Immature Granulocytes # (auto) 0.04 K/uL (0.01-0.20); Immature Granulocytes % (auto) 0.3 %; Lymphocytes # (auto) 2.27 K/uL (1.20-3.40); Lymphocytes % (auto) 15.8 %; Mean Corpuscular Hemoglobin 31.3 pg (25.0-34.0); Mean Corpuscular Hgb Conc 33.8 g/dL (32.0-36.0); Mean Corpuscular Volume 92.6 fL (80.0-100.0); Mean Platelet Volume 11.6 fL (9.4-12.4); Monocytes # (auto) 1.03 K/uL (0.11-0.59); Monocytes % (auto) 7.2 %; Neutrophils # (auto) 10.92 K/uL (1.40-6.50); Neutrophils % (auto) 76.2 %; Platelet Count 201 K/uL (130-400); RDW Coefficient of Variation 12.5 % (11.5-14.5); RDW Standard Deviation 42.2 fL (36.4-46.3); White Blood Count 14.33 K/ul (4.8-10.8)
[2023-07-31 09:36] LABS: BUN Creatinine Ratio 23.3 (10-20); Calcium 9.1 mg/dl (8.6-10.3); Creatinine Clr Calc Pharmacy 98.1 ml/min; Est GFR (African American) 117.3 ml/min; Est GFR (Non-African American) 101.2 ml/min; Potassium 4.1 mmol/L (3.5-5.1)
--- OUTSIDE RECORDS SUMMARY | 2023-07-31 12:18 | External Medical Summary | Summary of Care ---
Author Name Unknown Organization [facility] Address [address] [place] [address] Phone [phone] Care Team Providers Care State Patrol Officer Name Role Phone Unavailable Primary Care Provider Unavailabl e Reason for Visit * Reason Onset Date Comments FYI 07/08/2023 Annual mammogram Encounter Details Date Type Department Care Team (Late st Contact Info) Description 07/08/2023 Telephone Family Medicine [address] [phone] Obed Hernandez MD [address] [place] [address] [place] [id number] FYI (Annual mammogram) Allergies Active Allergy Reactions Criticality Noted Date Comments Diflunisal Nausea/vomiting 07/12/2008 Iodine 08/08/2021 Other Allergy (See Comments) High 05/17/2018 Iodine Containing Compounds Tramadol High 12/07/2001 Ultram/headache Trazodone 08/21/2005 Headache, nausea documented as of this encounter (statuses as of 07/08/2023) Medications Medication Sig Dispensed Refills Start Date End Date Status Amoxicillin-Pot Clavulanate 875-125 MG Oral Tablet (Augmentin)Indicatio ns:Pain, dental,Dental infection Take 1 Tablet by mouth in the morning and 1 Tablet before bedtime. Do all this for 5 days. 10 Tablet 0 07/06/2023 07/11/2023 Active documented as of this encounter (statuses as of 07/08/2023) Active Problems Problem Noted Date Diagnosed Date Hepatitis C virus infection cured after antiviral drug therapy 02/02/2022 Overview: HCV treated; SVR confirmed 01/28/2022 Hydronephrosis, left 07/20/2018 Staghorn calculus 07/20/2018 Calculus of kidney Tobacco use disorder documented as of this encounter (statuses as of 07/08/2023) Resolved Problems Problem Noted Date Diagnosed Date Resolved Date Backache 04/06/2008 04/27/2022 Hepatitis C without hepatic coma 11/17/2002 02/02/2022 Overview: HCV treated; SVR confirmed 01/28/2022 positive antibodies, positive HCV RNA 2,780,000 as of 02/24/2021 Anxiety state 04/27/2022 Major depressive disorder Overview: ICD-10 update of inactive term Gastroesophageal reflux dise ase with esophagitis without hemorrhage 3 documented as of this encounter (statuses as of 07/08/2023) Immunizations Name Administration Dates Next Due HEP A - Hepatitis A (Adult > 18 yrs) 05/05/2006 Hepatitis B, 20+ yrs 01/28/2022,08/29/19,07/28/2021,2006 Pneumococcal Conjugate Vacci ne, 20-valent ([id number]) 04/20/2022 Seasonal Influenza, PF, 6 M & above, IM , (FluLaval or Fluzone) 12/22/2022,04/27/2022 documented as of this encounter Social History Tobacco Use Types Packs/Day Years Used Date Smoking Tobacco: Every Day Cigarettes 1 42.9 Started: 1980 Passive Smoke Exposure: Never Smokeless Tobacco: Never Comments:03/15/06 Alcohol Use Standard Drinks/Week Comments Yes 0 (1 standard drink = 0.6 oz pur e alcohol) social Sex and Gender Information Value Date Recorded Sex Assigned at Not on file Gender Identity Not on file Sexual Orientation Not on file Job Start Date Occupation Industry Not on file Not on file Not on file documented as of this encounter Functional Status Functional Status Response Date of Assess ment Are you deaf or do you have serious difficulty h earing? No 07/20/2018 Are you blind or do you have serious difficulty seeing, even when wearing glasses? No 07/20/2018 Do you have serious difficul ty walking or climbing stairs? (5 years old or older) No 07/20/2018 Do you have difficulty dress ing or bathing? (5 years old or older) No 07/20/2018 Because of a physical, menta l, or emotional condition, do you have difficulty doing errands alone such as visiting a doctor s office or shopping? (15 years old or older) No 07/21/19 19 Cognitive Status Response Date of Assessm ent Because of a physical, menta l, or emotional condition, do you have serious difficulty concentrating, remembering, or making decisions? (5 years old or older) No 07/20/2018 documented as of this encounter Miscellaneous Notes * Telephone Encounter - Slime Awad OSA - 07/08/2023 8:40 AM EDT FYI, patient is due for an annual diagnostic mammogram and breast ultrasound. Several unsuccessful attempts have been made to contact patient to schedule. Certified letter mailed to home address. documented in this encounter Plan of Treatment Upcoming Encounters Date Type Department Care Team (Late st Contact Info) Description 07/08/2023 3:30 PM EDT Imaging Radiology [address] [place] [address] 08/16/2023 3:15 PM EDT Office Visit Gynecology/Obstetrics [facility] [address] [place] [address] Ned Gonzalez MD [address] [place] [address] Health Maintenance Due Date Last Done Comments Depression Screening 1977 DTaP,Tdap,and Td Vaccines (1 - Tdap) 1984 Cologuard 2010 Colonoscopy 2010 Colorectal Cancer Screening 2010 Fecal Occult Blood Test 2010 Sigmoidoscopy 2010 Lung Cancer Screening 08/06/2015 Zoster Vaccines (1 of 2) 08/06/2015 COVID-19 Vaccine (2022- season) 2022 Mammogram 07/01/2023 06/30/2022 Pap Smear 12/22/2025 12/22/2022, 04/08, 12/07/2001, Additional history exists Lipid Panel 07/01/2027 06/30/2022, 02/24/2021 Cervical Cancer Screening 12/23/2027 HPV/Co-Test 12/23/2027 12/22/2022 Hepatitis B Completed 01/28/2022, 08/07, 07/28/2021, Additional history exists Pneumococcal Vaccine: Pediatrics (0 to 5 Years) and At-Risk Patients (6 to 64 Years) Completed 04/20/2022 Influenza Vaccine (FLU shot) Completed 12/22/2022, 04/27/2022 GARDASIL-HPV IMMUNIZATION SERIES Aged Out No longer eligible based on patient's age to complete this topic MENINGOCOCCAL (MENACTRA/MENVEO) Aged Out No longer eligible based on patient's age to complete this topic documented as of this encounter Medical Devices Not on filedocumented as of this encounter Advance Directives Latest Code Status on File Code Status Date Activated Date Inactivated Comments Full Code 07/20/2018 3:03 AM 07/22/2018 7:09 PM This order reflects the patients wishes and were consensually agreed upon. Question Answer Comments Discussion of Advance Directives occurred with: Patient
--- OUTSIDE RECORDS SUMMARY | 2023-07-31 12:18 | External Medical Summary | Summary of Care ---
Author Name Unknown Organization [facility] Address [address] [place] [address] Phone [phone] Care Team Providers Care Electric Lineman Name Role Phone Unavailable Primary Care Provider Unavailabl e Reason for Visit * Reason Onset Date Comments FYI 07/08/2023 Annual mammogram Encounter Details Date Type Department Care Team (Late st Contact Info) Description 07/08/2023 Telephone Family Medicine [address] [phone] Obed Hernandez MD [address] [place] [address] [place] [phone] FYI (Annual mammogram) Allergies Active Allergy Reactions [...] yrs 01/28/2022,08/29/19,07/28/2021,2006 Pneumococcal Conjugate Vacci ne, 20-valent ([id number]) 04/20/2022 Seasonal Influenza, PF, 6 M & [...] encounter Miscellaneous Notes * Telephone Encounter - Sylvia Reno LPN - 07/08/2023 11:01 AM EDT Noted. * Telephone Encounter - Slime Awad OSA [...] Description 07/08/2023 3:30 PM EDT Imaging Radiology [address] [place] [address] 08/16/2023 3:15 PM EDT Office Visit Gynecology/Obstetrics [facility] [address] [place] [address] Ned Gonzalez MD [address] [place] [address] Health Maintenance Due Date Last Done Comments Depression Screening 1977 DTaP,Tdap,and Td Vaccines (1 - Tdap) 1984 Cologuard 2010 Colonoscopy 2010 Colorectal Cancer Screening 2010 Fecal Occult Blood Test 2010 Sigmoidoscopy 2010 Lung Cancer Screening 08/06/2015 Zoster Vaccines (1 of 2) 08/06/2015 COVID-19 Vaccine (1 - 2022- season) 2022 Mammogram 07/01/2023 06/30/2022 Pap Smear [...]
--- OUTSIDE RECORDS SUMMARY | 2023-07-31 12:18 | External Medical Summary | Summary of Care ---
Author Name Unknown Organization [facility] Address [address] [facility] [address] Phone [phone] Care Team Providers Care Gym Manager Name Role Phone Unavailable Primary Care Provider Unavailabl e Encounter Details Date Type Department Care Team (Late st Contact Info) Description 07/08/2023 3:30 PM EDT Imaging Radiology [address] [place] [address] Pre-op exam Allergies Active Allergy Reactions Criticality Noted Date Comments Diflunisal Nausea/vomiting 07/12/2008 Iodine 08/08/2021 Other Allergy (See Comments) High 05/17/2018 Iodine Containing Compounds Tramadol High 12/07/2001 Ultram/headache Trazodone 08/21/2005 Headache, nausea documented as of this encounter (statuses as of 07/15/2023) Medications No known medicationsdocumented as of this encounter (statuses as of 07/15/2023) Active Problems Problem Noted Date Diagnosed Date Hepatitis C virus infection cured after antiviral drug therapy 02/02/2022 Overview: HCV treated; SVR confirmed 01/28/2022 Hydronephrosis, left 07/20/2018 Staghorn calculus 07/20/2018 Calculus of kidney Tobacco use disorder documented as of this encounter (statuses as of 07/15/2023) Resolved Problems Problem Noted Date Diagnosed Date Resolved Date Backache 04/06/2008 04/27/2022 Hepatitis C without hepatic coma 11/17/2002 02/02/2022 Overview: HCV treated; SVR confirmed 01/28/2022 positive antibodies, positive HCV RNA 2,780,000 as of 02/24/2021 Anxiety state 04/27/2022 Major depressive disorder Overview: ICD-10 update of inactive term Gastroesophageal reflux dise ase with esophagitis without hemorrhage 3 documented as of this encounter (statuses as of 07/15/2023) Immunizations Name Administration Dates Next Due HEP A - Hepatitis A (Adult > 18 yrs) 05/05/2006 Hepatitis B, 20+ yrs 01/28/2022,08/29/19,07/28/2021,2006 Pneumococcal Conjugate Vacci ne, 20-valent ([id number]) 04/20/2022 Seasonal Influenza, PF, 6 M & [...] No 07/20/2018 documented as of this encounter Plan of Treatment Upcoming Encounters Date Type Department Care Team (Late st Contact Info) Description 08/16/2023 3:15 PM EDT Office Visit Gynecology/Obstetrics [facility] [address] [place] [address] Ned Gonzalez MD [address] [place] [address] Health Maintenance Due Date Last Done Comments Depression Screening 1977 DTaP,Tdap,and Td Vaccines (1 - Tdap) 1984 Cologuard 2010 Colonoscopy 2010 Colorectal Cancer Screening 2010 Fecal Occult Blood Test 2010 Sigmoidoscopy 2010 Lung Cancer Screening 08/06/2015 Zoster Vaccines (1 of 2) 08/06/2015 COVID-19 Vaccine ( season) 2022 Mammogram 07/01/2023 06/30/2022 Pap Smear [...] Not on filedocumented as of this encounter Procedures Procedure Name Priority Date/Time Associated Diagnosis Comments US PELVIS TRANS-ABDOMINAL Routine 07/08/2023 4:33 PM EDT Pre-op exam documented in this encounter Results * US PELVIS TRANS-ABDOMINAL (07/08/2023 4:33 PM EDT) Anatomical Region Laterality Modality Pelvis, Body Ultrasound 07/09/2023 5:13 PM EDT Impressions 07/09/2023 5:11 PM EDT IMPRESSION 1. Unremarkable uterus. 2. Nonvisualization of the left ovary. 3. Debris within the urinary bladder. Correlate for cystitis. Narrative 07/09/2023 5:11 PM EDT EXAM US PELVIS TRANS-ABDOMINAL - 07/08/2023 4:33 pm HISTORY irregular bleeding TECHNIQUE Real-time transabdominal ultrasound of the pelvis was performed. COMPARISON None. FINDINGS Study is limited by transabdominal technique. The uterus measures 5.6 x 2.5 x 4.3 cm and is normal in size and echogenicity without focal mass. The endometrium appears unremarkable and measures 2 mm in thickness. The right ovary measures 2.3 x 2 x 1.3 cm and is unremarkable. The left ovary is not seen. There is no adnexal mass. There is no free fluid in the cul-de-sac. Incidental note of debris within the urinary bladder. Procedure Note Donavan Maricsal MD - 07/09/2023 EXAM US PELVIS TRANS-ABDOMINAL - 07/08/2023 4:33 pm HISTORY irregular bleeding TECHNIQUE Real-time transabdominal ultrasound of the pelvis was performed. COMPARISON None. FINDINGS Study is limited by transabdominal technique. The uterus measures 5.6 x 2.5 x 4.3 cm and is normal in size andechogenicity without focal mass. The endometrium appears unremarkable andmeasures 2 mm in thickness. The right ovary measures 2.3 x 2 x 1.3 cm and is unremarkable. The leftovary is not seen. There is no adnexal mass. There is no free fluid in the cul-de-sac. Incidental note of debris within the urinary bladder. IMPRESSION IMPRESSION 1. Unremarkable uterus. 2. Nonvisualization of the left ovary. 3. Debris within the urinary bladder. Correlate for cystitis. Ned Gonzalez MD RAD ULTRASOUND documented in this encounter Visit Diagnoses Diagnosis Pre-op exam Preoperative examination, unspecified documented in this encounter Advance Directives Latest Code Status on File Code Status Date Activated Date Inactivated Comments Full Code 07/20/2018 3:03 AM 07/22/2018 7:09 PM This order reflects the patients wishes and were consensually agreed upon. Question Answer Comments Discussion of Advance Directives occurred with: Patient
--- OUTSIDE RECORDS SUMMARY | 2023-07-31 12:18 | External Medical Summary | Summary of Care ---
Author Name Unknown Organization [facility] Address [address] [place] [address] Phone [phone] Care Team Providers Care Well Logging Operator Mud Analysis Name Role Phone Unavailable Primary Care Provider Unavailabl e Reason for Visit * Reason Onset Date Comments Medication Problem 07/08/2023 Encounter Details Date Type Department Care Team (Late st Contact Info) Description 07/08/2023 Telephone Family Medicine [address] [phone] Ricco Fournier [address] [place] [address] Medication Problem Allergies Active Allergy Reactions Criticality Noted Date Comments Diflunisal Nausea/vomiting 07/12/2008 Iodine 08/08/2021 Other Allergy (See Comments) High 05/17/2018 Iodine Containing Compounds Tramadol High 12/07/2001 Ultram/headache Trazodone 08/21/2005 Headache, nausea documented as of this encounter (statuses as of 07/16/2023) Medications Medication Sig Dispensed Refills Start Date End Date Status Clindamycin HCl 300 MG Oral CapsuleIndications: Dental infection Take 1 Capsule by mouth in the morning and 1 Capsule at noon and 1 Capsule in the evening and 1 Capsule before bedtime. Do all this for 7 days. 28 Capsule 0 07/16/2023 07/23/2023 Active documented as of this encounter (statuses as of 07/16/2023) Active Problems Problem Noted Date Diagnosed Date Hepatitis C virus infection cured after antiviral drug therapy 02/02/2022 Overview: HCV treated; SVR confirmed 01/28/2022 Hydronephrosis, left 07/20/2018 Staghorn calculus 07/20/2018 Calculus of kidney Tobacco use disorder documented as of this encounter (statuses as of 07/16/2023) Resolved Problems Problem Noted Date Diagnosed Date Resolved Date Backache 04/06/2008 04/27/2022 Hepatitis C without hepatic coma 11/17/2002 02/02/2022 Overview: HCV treated; SVR confirmed 01/28/2022 positive antibodies, positive HCV RNA 2,780,000 as of 02/24/2021 Anxiety state 04/27/2022 Major depressive disorder Overview: ICD-10 update of inactive term Gastroesophageal reflux dise ase with esophagitis without hemorrhage 3 documented as of this encounter (statuses as of 07/16/2023) Immunizations Name Administration Dates Next Due HEP A - Hepatitis A (Adult > 18 yrs) 05/05/2006 Hepatitis B, 20+ yrs 01/28/2022,08/29/19 22,07/28/2021,2006 Pneumococcal Conjugate Vacci ne, 20-valent ([id number]) 04/20/2022 Seasonal Influenza, PF, 6 M & [...] encounter Miscellaneous Notes * Telephone Encounter - Ricco Fournier CRNP - 07/16/2023 7:51 AM EDT Clindamycin sent to pharmacy. * Telephone Encounter - Sylvia Reno LPN - 07/15/2023 4:49 PM EDT She forgot about her dentist sandra. She had a visit with Dr. Gonzalez and is having a hysterectomy 07/30/23. She still has tooth pain. Doesn't want to take augmentin anymore b/c it caused nausea. Wants something called to [facility]. * Telephone Encounter - Ricco Fournier CRNP - 07/13/2023 4:01 PM EDT Is she still taking antibiotic or in need of an antibiotic? This was only a 5 day course of abx andshe was suppose to follow up with the dentist on 07/08/23. If she was unable to see the dentist or still having problems I am happy to send a different antibiotic. * Telephone Encounter - Sofia Scott RN - 07/13/2023 2:56 PM EDT Is talking about the augmentin * Telephone Encounter - David Winter OSA - 07/13/2023 1:31 PM EDT Caller: Greer Hull Callback #: [phone] Reason for call: Patient call to see if she can get a new antibioc Please Advise * Telephone Encounter - Sylvia Reno LPN - 07/08/2023 4:09 PM EDT Kathleen from front end developer designer sent a messaged me stating pt told her the medicine she was given is not agreeing with her (headaches). I went back to the lab, pt isn't back there. Pt isn't in the buildling. will call her tomorrow. documented in this encounter Plan of Treatment Upcoming Encounters Date Type Department Care Team (Late st Contact Info) Description 08/16/2023 3:15 PM EDT Office Visit Gynecology/Obstetrics [facility] [address] [place] [address] Ned Gonzalez MD [address] [place] [address] Health Maintenance Due Date Last Done Comments [...] Not on filedocumented as of this encounter Visit Diagnoses Diagnosis Dental infection- Primary Acute apical periodontitis of pulpal origin documented in this encounter Advance Directives Latest Code Status on File Code Status Date Activated Date Inactivated Comments Full Code 07/20/2018 3:03 AM 07/22/2018 7:09 PM This order reflects the patients wishes and were consensually agreed upon. Question Answer Comments Discussion of Advance Directives occurred with: Patient
--- OUTSIDE RECORDS SUMMARY | 2023-07-31 12:19 | External Medical Summary | Summary of Care ---
Author Name Unknown Organization [facility] Address [address] [place] [address] Phone [phone] Care Team Providers Care Power Engineer Name Role Phone Obed Hernandez MD Primary Care Provider [phone] Reason for Visit * Reason Onset Date Comments Test Results 04/22/2023 Encounter Details Date Type Department Care Team (Late st Contact Info) Description 04/22/2023 Telephone Nephrology, [facility] [address] [place] [address] Ermelinda Oropeza MD [address] [place] [address] Test Results Allergies Active Allergy Reactions Criticality Noted Date Comments Diflunisal Nausea/vomiting 07/12/2008 Iodine 08/08/2021 Other Allergy (See Comments) High 05/17/2018 Iodine Containing Compounds Tramadol High 12/07/2001 Ultram/headache Trazodone 08/21/2005 Headache, nausea documented as of this encounter (statuses as of 05/04/2023) Medications Medication Sig Dispensed Refills Start Date End Date Status Tylenol 325 MG Oral Capsule (Acetaminophen) Take 2 Tablets by mouth every 4 hours as needed for Pain, Mild. 0 Active documented as of this encounter (statuses as of 05/04/2023) Active Problems Problem Noted Date Diagnosed Date Hepatitis C virus infection cured after antiviral drug therapy 02/02/2022 Overview: HCV treated; SVR confirmed 01/28/2022 Hydronephrosis, left 07/20/2018 Staghorn calculus 07/20/2018 Calculus of kidney Tobacco use disorder documented as of this encounter (statuses as of 05/04/2023) Resolved Problems Problem Noted Date Diagnosed Date Resolved Date Backache 04/06/2008 04/27/2022 Hepatitis C without hepatic coma 11/17/2002 02/02/2022 Overview: HCV treated; SVR confirmed 01/28/2022 positive antibodies, positive HCV RNA 2,780,000 as of 02/24/2021 Anxiety state 04/27/2022 Major depressive disorder Overview: ICD-10 update of inactive term Gastroesophageal reflux dise ase with esophagitis without hemorrhage 3 documented as of this encounter (statuses as of 05/04/2023) Immunizations Name Administration Dates Next Due HEP A - Hepatitis A (Adult > 18 yrs) 05/05/2006 Hepatitis B, 20+ yrs 01/28/2022,08/29/19 22,07/28/2021,2006 Pneumococcal Conjugate Vacci ne, 20-valent ([id number]) 04/20/2022 Seasonal Influenza, PF, 6 M & above, IM , (FluLaval or Fluzone) 12/22/2022,04/27/2022 documented as of this encounter Social History Tobacco Use Types Packs/Day Years Used Date Smoking Tobacco: Every Day Cigarettes 1 42.7 Started: 1980 Passive Smoke Exposure: Never Smokeless [...] encounter Miscellaneous Notes * Telephone Encounter - Angelia Huerta RN - 05/04/2023 9:20 AM EST Multiple attempts to contact pt by phone. Letter sent via [employer]. LMAM with return number * Telephone Encounter - Angelia Huerta RN - 04/22/2023 2:56 PM EST LMAM with call back number regarding lab results. * Telephone Encounter - Angelia Huerta RN - 04/22/2023 2:52 PM EST ----- Message from Ermelinda Oropeza MD sent at 04/11/2023 10:00 PM EST ----- ?if this is an overcollection >> pls ask; would've expected urine creatinine about 900 or 1200 here we have 1752. 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 operator referral if she wants help w/ that After about 10 days on hctz recheck bmp documented in this encounter Plan of Treatment Upcoming Encounters Date Type Department Care Team (Late st Contact Info) Description 05/05/2023 1:00 PM EST Office Visit Gynecology/Obstetrics [facility] [address] [facility] [place] [address] Ned Gonzalez MD [address] [place] [address] 06/30/2023 10:30 AM EDT Office Visit [facility] [place] [address] Oliverio Corona MD [address] [place] [address] 12/10/2023 9:00 AM EDT Office Visit Nephrology, [facility] [address] [place] [address] Ermelinda Oropeza MD [address] [place] [address] Health Maintenance Due Date Last Done Comments Depression Screening 1977 DTaP,Tdap,and Td Vaccines (1 - Tdap) 1984 Cologuard 2010 Colonoscopy 2010 Colorectal Cancer Screening 2010 Fecal Occult Blood Test 2010 Sigmoidoscopy 2010 LUNG CANCER SCREENING - USE SMARTSET [id number] 08/06/2015 Zoster Vaccines (1 of 2) 08/06/2015 COVID-19 Vaccine ( - season) 2022 Mammogram 07/01/2023 06/30/2022 Pap Smear 12/22/2025 12/22/2022, 04/08, 12/07/2001, Additional history exists Lipid Panel 07/01/2027 06/30/2022, 02/24/2021 Cervical Cancer Screening 12/23/2027 HPV/Co-Test 12/23/2027 12/22/2022 Hepatitis B Completed 01/28/2022, 06/2 05/2021, 07/28/2021, Additional history exists Pneumococcal Vaccine: Pediatrics [...] Discussion of Advance Directives occurred with: Patient Care Teams Power Engineer Relationship Specialty Start Date End Date Obed Hernandez MD [address] [place] [address] [place] [address] PCP - General Family Medicine 10/29/22 documented as of this encounter
--- OUTSIDE RECORDS SUMMARY | 2023-07-31 12:19 | External Medical Summary | Summary of Care ---
Author Name Unknown Organization [facility] Address [address] [place] [address] Phone [phone] Care Team Providers Care Weatherization Crew Leader Name Role Phone Unavailable Primary Care Provider Unavailabl e Reason for Visit * Reason Comments Outpatient Testing Encounter Details Date Type Department Care Team (Late st Contact Info) Description 07/07/2023 3:00 PM EDT Laboratory Laboratory, [facility] [address] [place] [id number] [facility] [address] [place] [address] Pre-op exam Allergies Active Allergy Reactions Criticality Noted Date Comments Diflunisal Nausea/vomiting 07/12/2008 Iodine 08/08/2021 Other Allergy (See Comments) High 05/17/2018 Iodine Containing Compounds Tramadol High 12/07/2001 Ultram/headache Trazodone 08/21/2005 Headache, nausea documented as of this encounter (statuses as of 07/07/2023) Medications Medication Sig Dispensed Refills Start Date End Date Status Amoxicillin-Pot Clavulanate 875-125 MG Oral Tablet (Augmentin)Indicatio ns:Pain, dental,Dental infection Take 1 Tablet by mouth in the morning and 1 Tablet before bedtime. Do all this for 5 days. 10 Tablet 0 07/06/2023 07/11/2023 Active documented as of this encounter (statuses as of 07/07/2023) Active Problems Problem Noted Date Diagnosed Date Hepatitis C virus infection cured after antiviral drug therapy 02/02/2022 Overview: HCV treated; SVR confirmed 01/28/2022 Hydronephrosis, left 07/20/2018 Staghorn calculus 07/20/2018 Calculus of kidney Tobacco use disorder documented as of this encounter (statuses as of 07/07/2023) Resolved Problems Problem Noted Date Diagnosed Date Resolved Date Backache 04/06/2008 04/27/2022 Hepatitis C without hepatic coma 11/17/2002 02/02/2022 Overview: HCV treated; SVR confirmed 01/28/2022 positive antibodies, positive HCV RNA 2,780,000 as of 02/24/2021 Anxiety state 04/27/2022 Major depressive disorder Overview: ICD-10 update of inactive term Gastroesophageal reflux dise ase with esophagitis without hemorrhage 3 documented as of this encounter (statuses as of 07/07/2023) Immunizations Name Administration Dates Next Due HEP A - Hepatitis A (Adult > 18 yrs) 05/05/2006 Hepatitis B, 20+ yrs 01/28/2022,08/29/19 22,07/28/2021,2006 Pneumococcal Conjugate Vacci ne, 20-valent ([id number]) 04/20/2022 Seasonal Influenza, PF, 6 M & [...] Description 07/08/2023 3:30 PM EDT Imaging Radiology [address] [place] [address] 08/16/2023 3:15 PM EDT Office Visit Gynecology/Obstetrics [facility] [address] [place] [address] Ned Gonzalez MD [address] [place] [address] Pending Results Name Type Priority Associated Diagnoses Date /Time CBC WITH WBC DIFFERENTIAL Lab Routine Pre-op exam 07/07/2023 4:49 PM EDT COMPREHENSIVE METABOLIC PANEL Lab Routine Pre-op exam 07/07/2023 4:49 PM EDT CBC Lab Routine Pre-op exam 07/07/2023 4:49 PM EDT DIFFERENTIAL, AUTOMATED Lab Routine Pre-op exam 07/07/2023 4:49 PM EDT Health Maintenance Due Date Last Done Comments [...] as of this encounter Visit Diagnoses Diagnosis Pre-op exam [...]
--- OUTSIDE RECORDS SUMMARY | 2023-07-31 12:19 | External Medical Summary | Summary of Care ---
Author Name Unknown Organization [facility] Address [address] [facility] [address] Phone [phone] Care Team Providers Care White Washer Name Role Phone Unavailable Primary Care Provider Unavailabl e Reason for Visit * Reason Comments Advice Encounter Details Date Type Department Care Team (Late st Contact Info) Description 07/07/2023 3:15 PM EDT [facility] [address] [place] [address] Arabella Johnston MD [address] [place] [address] Pre-op exam* Allergies Active Allergy Reactions Criticality Noted Date [...] 01/28/2022,08/29/19 22,07/28/2021,2006 Pneumococcal Conjugate Vacci ne, 20-valent ([id number]) 04/20/2022 Seasonal Influenza, PF, 6 M & [...] on file documented as of this encounter Last Filed Vital Signs Vital Sign Reading Time Taken Comments Blood Pressure - - Pulse - - Temperature - - Respiratory Rate - - Oxygen Saturation - - Inhaled Oxygen Concentration - - Weight 61.2 kg (135 lb) 07/07/2023 4:04 PM EDT Height 167.6 cm (5' 6") 07/07/2023 4:04 PM EDT Body Mass Index 21.79 07/07/2023 4:04 PM EDT documented in this encounter Functional Status Functional Status Response [...] No 07/20/2018 documented as of this encounter Progress Notes * Arabella Johnston MD - 07/07/2023 4:31 PM EDT Pt here for preop History and physical examination done Consnet obtained documented in this encounter H&P Notes * Arabella Johnston MD - 07/07/2023 4:27 PM EDT [facility] [address] [facility] [place] [address] Appt line [phone] Greer Hull is a 57 year old year old year old Long hx of HGSIL. 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 Denies h/o STDs and abnormal Paps. Her past medical/surgical histories and current medications are recorded in the electronic record. Past Surgical History: Procedure Laterality Date COLPSCPY CERVIX W/LOOP ELECT 07/2021 HC CAROTID DUPLEX- BILATERAL COMPLETE Bilateral 05/13/2022 normal LUTHER, <50% stenosis, LICA, vertebrals antegrade MAMMOGRAM SCREENING BILATERAL Bilateral 06/30/2022 fibroglandular densities, asymmetry on left category 0 REMOVAL OF KIDNEY STONE, OVER 2CM Family History Problem Relation Age of Onset Cancer Father Heart Disorder Mother History Social History Socioeconomic History Marital status: Spouse name: Not on file Number of children: 1 Years of education: Not on file Highest education level: Not on file Occupational History Occupation: on disability Comment: bipolar,manic depression Tobacco Use Smoking status: Every Day Current packs/day: 1.00 Average packs/day: 1 pack/day for 42.9 years (42.9 ttl pk-yrs) Types: Cigarettes Start date: 1980 Passive exposure: Never Smokeless tobacco: Never Tobacco comments: 03/15/06 Vaping Use Vaping Use: Never used Substance and Sexual Activity Alcohol use: Yes Comment: social Drug use: Not Currently Comment: marijuana at 17yrs has used heroin and possibly other Sexual activity: Not Currently Other Topics Concern Not on file Social History Narrative Not on file Social Determinants of Health Financial Resource Strain: Not on file Food Insecurity: Not on file Transportation Needs: Not on file Physical Activity: Not on file Stress: Not on file Social Connections: Not on file Intimate Partner Violence: Not on file Housing Stability: Not on file @[employer]@ Physical Exam: Ht 1.676 m (5' 6") | Wt 61.2 kg (135 lb) | LMP 10/15/2018 | BMI 21.79 kg/m | BSA 1.69 m CV: S1, S2. Regular rate and Rhythm Lungs: Clear to auscultation bilaterally. Abdomen: Soft Extremities: Soft non tender calves bilaterally. A/P: 57 year old year old Long hx of HGSIL Pt has had repeated LEEP cones Pt is noncompliant Wishes to have hsyterectomy We have discussed the risk alternatives and complications of surgery including more surgery to correct complication,risk of anesthesia,infection,damage to internal organs and . We have also discussed the possibility that pt's present situation may not change. Pt is aware and wishes to proceed to surgery. Consent is signed Pt scheduled for the ff procedures 1. Total laparoscopic hysterectomy 3. Bilateral salpingo oopherectomy 4. Possible laparotomy 5. Possible cystoscopy Arabella Johnston MD 07/07/2023 4:27 PM documented in this encounter Miscellaneous Notes * Addendum Note - Arabella Johnston MD - 07/07/2023 4:36 PM EDTAddended by: ARABELLA JOHNSTON on: 07/07/2023 04:36 PM Modules accepted: Orders documented in this encounter Plan of Treatment Upcoming Encounters Date Type Department Care Team (Late st Contact Info) Description 08/16/2023 3:15 PM EDT Office Visit Gynecology/Obstetrics [facility] [address] [address] Arabella Johsnton MD [address] [place] [address] Scheduled Orders Name Type Priority Associated Diagnoses Orde r Schedule CBC WITH WBC DIFFERENTIAL Lab Routine Pre-op exam Expected: 07/07/2023 (Approximate), Expires: 07/06/2024 COMPREHENSIVE METABOLIC PANEL Lab Routine Pre-op exam Expected: 07/07/2023 (Approximate), Expires: 07/06/2024 US PELVIS TRANS-ABDOMINAL Medical Imaging Routine Pre-op exam Expected: 07/07/2023, Expires: 08/06/2024 Health Maintenance Due Date Last Done Comments [...] of this encounter Visit Diagnoses Diagnosis Pre-op exam- Primary Preoperative examination, unspecified documented in this encounter Advance Directives Latest Code Status on File Code Status Date Activated Date Inactivated Comments Full Code 07/20/2018 3:03 AM 07/22/2018 7:09 PM This order reflects the patients wishes and were consensually agreed upon. Question Answer Comments Discussion of Advance Directives occurred with: Patient
--- OUTSIDE RECORDS SUMMARY | 2023-07-31 12:19 | External Medical Summary | Summary of Care ---
Author Name Unknown Organization [facility] Address [address] [place] [place] [address] Phone [phone] Care Team Providers Care Restaurant Host/Hostess Name Role Phone Unavailable Primary Care Provider Unavailabl e Reason for Visit * Reason Comments Advice Encounter Details Date Type Department Care Team (Late st Contact Info) Description 07/07/2023 3:15 PM EDT [facility] [address] [place] [address] Arabella Johnston MD [address] [place] [address] Pre-op exam* Allergies Active Allergy Reactions Criticality [...] 01/28/2022,08/29/19 22,07/28/2021,2006 Pneumococcal Conjugate Vacci ne, 20-valent ([id number]) 04/20/2022 Seasonal Influenza, PF, 6 M & [...] Johnston MD - 07/07/2023 4:27 PM EDT [facility] [address] [place] [address] Appt line [phone] Greer Hull is a 57 year old [...] Del Comments GA Length Weight Type Site 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 Denies h/o [...] 08/16/2023 3:15 PM EDT Office Visit Gynecology/Obstetrics [facility] [address] [address] Arabella Johnston MD [address] [place] [address] Scheduled Orders Name Type Priority Associated Diagnoses [...]
--- OUTSIDE RECORDS SUMMARY | 2023-07-31 12:19 | External Medical Summary | Summary of Care ---
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 Encounter Details Date Type Department Care Team (Latest Contact Info) Description 05/05/2023 1:00 PM EST Office Visit [facility] [address] [place] [address] Ned Gonzalez MD [address] [place] [address] High grade squamous intraepithelial lesion on cytologic smear of cervix (HGSIL)* Allergies Active Allergy Reactions Criticality Noted Date Comments Diflunisal Nausea/vomiting 07/12/2008 Iodine 08/08/2021 Other Allergy (See Comments) High 05/17/2018 Iodine Containing Compounds Tramadol High 12/07/2001 Ultram/headache Trazodone 08/21/2005 Headache, nausea documented as of this encounter (statuses as of 05/05/2023) Medications Medication Sig Dispensed Refills Start Date End Date Status Tylenol 325 MG Oral Capsule (Acetaminophen) Take 2 Tablets by mouth every 4 hours as needed for Pain, Mild. 0 Active documented as of this encounter (statuses as of 05/05/2023) Active Problems Problem Noted Date Diagnosed Date Hepatitis C virus infection cured after antiviral drug therapy 02/02/2022 Overview: HCV treated; SVR confirmed 01/28/2022 Hydronephrosis, left 07/20/2018 Staghorn calculus 07/20/2018 Calculus of kidney Tobacco use disorder documented as of this encounter (statuses as of 05/05/2023) Resolved Problems Problem Noted Date Diagnosed Date Resolved Date Backache 04/06/2008 04/27/2022 Hepatitis C without hepatic coma 11/17/2002 02/02/2022 Overview: HCV treated; SVR confirmed 01/28/2022 positive antibodies, positive HCV RNA 2,780,000 as of 02/24/2021 Anxiety state 04/27/2022 Major depressive disorder Overview: ICD-10 update of inactive term Gastroesophageal reflux dise ase with esophagitis without hemorrhage 3 documented as of this encounter (statuses as of 05/05/2023) Immunizations Name Administration Dates Next Due HEP A - Hepatitis A (Adult > 18 yrs) 05/05/2006 Hepatitis B, 20+ yrs 01/28/2022,08/29/19 22,07/28/2021,2006 Pneumococcal Conjugate Vacci ne, 20-valent ([id number]) 04/20/2022 Seasonal Influenza, PF, 6 M & [...] - Inhaled Oxygen Concentration - - Weight 61.7 kg (136 lb) 05/05/2023 1:17 PM EST Height 167.6 cm (5' 6") 05/05/2023 1:17 PM EST Body Mass Index 21.95 05/05/2023 1:17 PM EST documented in this encounter Functional Status Functional [...] as of this encounter Progress Notes * Ned Gonzalez MD - 05/05/2023 2:15 PM EST Patient is a 57-year-old. with the following sequence of events. 04/17/2021 Pap smear done showed high-grade squamous intraepithelial lesion.(HGSIL) 05/07/2021; colpo is done biopsy at 6,3,9,12;00 and ECC all show BONIFACIO 3. 07/17/2021 loop electrical excision procedure was performed. Ectocervix shows high-grade with negative margins ECC shows high-grade with negative margins. 12/22/2022; 1st Pap after LEEP showed high-grade ANDREAS. 06/30/2023 colposcopy done biopsies from 2,4,7,11 and ECC all showed high-grade ANDREAS. Patient is here with there sister who is a nurse we discussed the series of events in sequence We have discussed another LEEP procedure versus hysterectomy. Patient and sister both agreed this point the wished to have hysterectomy. Postop patient's age we have discussed oophorectomy as well. They have patient has agreed to having total laparoscopic hysterectomy with bilateral salpingo-oophorectomy. Paperwork will be sent to Rona for scheduling. I spent a total of 30-39 minutes (exact time 31 mins) on the date of service in preparation, delivery, and documentation of the care provided to Greer Hull excluding any time spent in the performance of separately billed services. A/p Persistent HGSIL documented in this encounter Plan of Treatment Upcoming Encounters Date Type Department Care Team (Late st Contact Info) Description 06/30/2023 10:30 AM EDT Office Visit Urology, [facility] [address] [facility] [place] [address] Oliverio Corona MD [address] [facility] [address] [place] [address] 12/10/2023 9:00 AM EDT Office Visit Nephrology, [facility] [address] [facility] [place] [address] Ermelinda Oropeza MD [address] [facility] [address] Health Maintenance Due Date Last Done Comments Depression Screening 1977 DTaP,Tdap,and Td Vaccines (1 - Tdap) 1984 Cologuard 2010 Colonoscopy 2010 Colorectal Cancer Screening 2010 Fecal Occult Blood Test 2010 Sigmoidoscopy 2010 LUNG CANCER SCREENING - USE SMARTSET [id number] 08/06/2015 Zoster Vaccines (1 of 2) 08/06/2015 [...] as of this encounter Visit Diagnoses Diagnosis High grade squamous intraepithelial lesion on cytologic smear of cervix (HGSIL)- Primary Papanicolaou smear of cervix with high grade squamous intraepithelial lesion (HGSIL) documented in this encounter Advance Directives Latest Code Status on File Code Status Date Activated Date Inactivated Comments Full Code 07/20/2018 3:03 AM 07/22/2018 7:09 PM This order reflects the patients wishes and were consensually agreed upon. Question Answer Comments Discussion of Advance Directives occurred with: Patient Care Teams System Developer Associate Manager Relationship Specialty Start Date End Date Obed Hernandez MD [address] [place] [address] [place] [address] PCP - General Family Medicine 10/29/22 documented as of this encounter
--- OUTSIDE RECORDS SUMMARY | 2023-07-31 12:19 | External Medical Summary | Summary of Care ---
Author Name Unknown Organization [facility] Address [address] [place] [address] Phone [phone] Care Team Providers Care Bolting Machine Operator Name Role Phone Obed Hernandez MD Primary Care Provider Reason for Visit * Reason Onset Date Comments Test Results 04/22/2023 Encounter Details Date Type Department Care Team (Late st Contact Info) Description 04/22/2023 Telephone Nephrology, [facility] [address] [place] [address] Ermelinda Oropeza MD [address] [place] [address] Test Results Allergies Active Allergy Reactions Criticality [...] 01/28/2022,08/29/19 22,07/28/2021,2006 Pneumococcal Conjugate Vacci ne, 20-valent ([id number]) 04/20/2022 Seasonal Influenza, PF, 6 M & [...] as of this encounter Miscellaneous Notes * Addendum Note - Angelia Olvera RN - 05/04/2023 9:33 AM ESTAddended by: ANGELIA OLVERA on: 05/04/2023 09:33 AM Modules accepted: Orders * Telephone Encounter - Angelia Olvera RN - 05/04/2023 9:20 AM EST Multiple attempts to contact pt by phone. Letter sent via [facility]. LMAM with return number * Telephone Encounter - Angelia Olvera RN - 04/22/2023 2:56 PM EST LMAM with call back number regarding lab results. 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 cashiers supervisor referral if she wants help w/ that After about 10 days on hctz recheck bmp documented in this encounter Plan of Treatment Upcoming Encounters Date Type Department Care Team (Late st Contact Info) Description 05/05/2023 1:00 PM EST Office Visit [facility]ne[facility] [place] [address] Ned Gonzalez MD 132 [facility] [place] [address] 06/30/2023 10:30 AM EDT Office Visit Urology, [facility] [address] [facility] [place] [address] Oliverio Corona MD [address] [facility] [address] [place] [address] 12/10/2023 9:00 AM EDT Office Visit Nephrology, [facility] [address] [place] [address] Ermelinda Oropeza MD [address] [place] [address] Scheduled Orders Name Type Priority Associated Diagnoses Orde r Schedule BASIC METABOLIC PANEL Lab Routine Calculus of kidney Expected: 05/04/2023, Expires: 05/04/2024 Health Maintenance Due Date Last Done Comments Depression Screening 1977 DTaP,Tdap,and Td Vaccines (1 - Tdap) 1984 Cologuard 2010 Colonoscopy 2010 Colorectal Cancer Screening 2010 Fecal Occult Blood Test 2010 Sigmoidoscopy 2010 LUNG CANCER SCREENING - USE SMARTSET [id number] 08/06/2015 Zoster Vaccines (1 of 2) 08/06/2015 COVID-19 Vaccine (1 - season) 2022 Mammogram 07/01/2023 06/30/2022 Pap [...] as of this encounter Visit Diagnoses Diagnosis Calculus of kidney- Primary documented in this encounter Advance Directives Latest Code Status on File Code Status Date Activated Date Inactivated Comments Full Code 07/20/2018 3:03 AM 07/22/2018 7:09 PM This order reflects the patients wishes and were consensually agreed upon. Question Answer Comments Discussion of Advance Directives occurred with: Patient Care Teams Bolting Machine Operator Relationship Specialty Start Date End Date Obed Hernandez MD [address] [place] [address] [place] [address] PCP - General Family Medicine 10/29/22 documented as of this encounter
--- OUTSIDE RECORDS SUMMARY | 2023-07-31 12:19 | External Medical Summary ---
Author Name Unknown Address Unknown Organization [id number]:LABORATORY [facility] - [facility] [address] [facility] [address] Laboratory Report Ordering Provider Test Date Status PRESTON BELL 07/07/2023 16:49:29 Final Observation Date Value Abnormality Reference (Units ) Status WBC, Total 07/07/2023 16:49:29 8.95 4.00-10.80 (K/uL) Final RBC 07/07/2023 16:49:29 4.30 3.85-5.15 (M/uL) Final Hemoglobin 07/07/2023 16:49:29 13.6 12.0-15.3 (g/dL) Final HCT 07/07/2023 16:49:29 41.5 36.0-45.2 (%) Final MCV 07/07/2023 16:49:29 96.5 81.5-97.5 (fL) Final MCH 07/07/2023 16:49:29 31.6 27.0-34.0 (pg) Final MCHC 07/07/2023 16:49:29 32.8 32.0-36.0 (g/dL) Final RDW 07/07/2023 16:49:29 12.6 11.5-15.5 (%) Final Platelets 07/07/2023 16:49:29 247 140-400 (K/uL) Final MPV 07/07/2023 16:49:29 12.6 6.6-11.1 (fL) Final Nucleated erythrocytes/100 leukocytes [Ratio] in Blood by Automated count 07/07/2023 16:49:29 0 <=0 (/100 WBCs) Final Performing Location LAB[facility]ORY [facility] - [address] [facility] [address]
--- OUTSIDE RECORDS SUMMARY | 2023-07-31 12:19 | External Medical Summary ---
Author Name Unknown Address Unknown Organization [id number]:LAB[facility]ATORY [facility] [place] - [address] [facility] [place] [address] Laboratory Report Ordering Provider Test Date Status PRESTON BELL 07/07/2023 16:49:29 Final Observation Date Value Abnormality Reference (Units ) Status BUN 07/07/2023 16:49:29 14 6-20 (mg/dL) Final Creatinine 07/07/2023 16:49:29 0.7 0.5-1.0 (mg/dL) Final Glomerular filtration rate/1.73 sq M.predicted [Volume Rate/Area] in Serum, Plasma or Blood by Creatinine-based formula (CKD-EPI) 07/07/2023 16:49:29 >90 >=60 (mL/min) Final eGFR is calculated based on the CKD-EPI 2020 equation Sodium 07/07/2023 16:49:29 143 135-146 (m mol/L) Final Potassium 07/07/2023 16:49:29 4.2 3.5-5.1 (m mol/L) Final Cl 07/07/2023 16:49:29 108 Above high normal 98 -107 (mmol/L) Final CO2 07/07/2023 16:49:29 26 22-32 (mmo l/L) Final Anion gap 07/07/2023 16:49:29 9 7-15 (mmol /L) Final Glucose 07/07/2023 16:49:29 79 70-120 (mg /dL) Final Albumin 07/07/2023 16:49:29 4.3 3.8-5.0 (g /dL) Final AST (Aspartate aminotransferase) 07/07/2023 16:49:29 22 10-35 (U/L) Fin al Alk Phos 07/07/2023 16:49:29 94 35-130 (U/ L) Final Bilirubin, Total 07/07/2023 16:49:29 0.3 <=1 .2 (mg/dL) Final Calcium 07/07/2023 16:49:29 9.6 8.4-10.2 ( mg/dL) Final Protein 07/07/2023 16:49:29 6.8 6.0-8.3 (g /dL) Final ALT (Alanine aminotransferase) 07/07/2023 16:49:29 15 10-35 (U/L) Rickey rodríguez Performing Location LABORATORY [facility] [place] - [address] [facility] [address]
--- OUTSIDE RECORDS SUMMARY | 2023-07-31 12:19 | External Medical Summary | Summary of Care ---
Author Name Unknown Organization [facility] Address [address] [place] [facility] [place] [address] Phone [phone] Care Team Providers Care Edge Burnisher Uppers Name Role Phone Unavailable Primary Care Provider Unavailabl e Reason for Visit * Reason Comments Advice Encounter Details Date Type Department Care Team (Late st Contact Info) Description 07/07/2023 3:15 PM EDT [facility] [address] [place] [address] Ned Gonzalez MD [address] [place] [address] Pre-op exam* Allergies Active Allergy Reactions Criticality [...] 01/28/2022,08/29/19 22,07/28/2021,2006 Pneumococcal Conjugate Vacci ne, 20-valent ([id number]) 04/20/2022 Seasonal Influenza, PF, 6 M & [...] Progress Notes * Ned Gonzalez MD - 07/07/2023 4:31 PM EDT Pt here for preop History and physical examination done Consnet obtained documented in this encounter H&P Notes * Ned Gonzalez MD - 07/07/2023 4:27 PM EDT [facility] [address] [place] [address] Appt line [phone] Greer Hull is a 57 year old [...] Del Comments GA Length Weight Type Site Hatchery Supervisor History: Menstrual Index: // days. Denies h/o [...] oopherectomy 4. Possible laparotomy 5. Possible cystoscopy Ned Gonzalez MD 07/07/2023 4:27 PM documented in this encounter Plan of Treatment Upcoming Encounters Date Type Department Care Team (Late st Contact Info) Description 08/16/2023 3:15 PM EDT Office Visit Gynecology/Obstetrics [facility] 132 [facility] [place] [address] Ned Gonzalez MD 132 [facility] [place] [address] Scheduled Orders Name Type Priority Associated Diagnoses [...]
--- OUTSIDE RECORDS SUMMARY | 2023-07-31 12:19 | External Medical Summary | Summary of Care ---
Author Name Unknown Organization [facility] Address [address] [place] [address] Phone [phone] Care Team Providers Care Materials Assistant Name Role Phone Unavailable Primary Care Provider Unavailabl e Reason for Visit * Reason Comments Acute Encounter Details Date Type Department Care Team (Late st Contact Info) Description 07/06/2023 1:20 PM EDT Office Visit Family Medicine [address] [place] [phone] [address]co Fournier [address] [place] [id number] Pain, dental*; Dental infection Allergies Active Allergy Reactions Criticality Noted Date Comments Diflunisal Nausea/vomiting 07/12/2008 Iodine 08/08/2021 Other Allergy (See Comments) High 05/17/2018 Iodine Containing Compounds Tramadol High 12/07/2001 Ultram/headache Trazodone 08/21/2005 Headache, nausea documented as of this encounter (statuses as of 07/06/2023) Medications Medication Sig Dispensed Refills Start Date End Date Status Amoxicillin-Pot Clavulanate 875-125 MG Oral Tablet (Augmentin)Indica tions:Pain, dental,Dental infection Take 1 Tablet by mouth in the morning and 1 Tablet before bedtime. Do all this for 5 days. 10 Tablet 0 07/06/2023 4 Active Tylenol 325 MG Oral Capsule (Acetaminophen) Take 2 Tablets by mouth every 4 hours as needed for Pain, Mild. 0 4 Discontinued(Medi cation List Clean Up) Amoxicillin-Pot Clavulanate 875-125 MG Oral Tablet (Augmentin)Indica tions:Pain, dental Take 1 Tablet by mouth in the morning and 1 Tablet before bedtime. Do all this for 10 days. 20 Tablet 0 07/06/2023 4 Discontinued documented as of this encounter (statuses as of 07/06/2023) Active Problems Problem Noted Date Diagnosed Date Hepatitis C virus infection cured after antiviral drug therapy 02/02/2022 Overview: HCV treated; SVR confirmed 01/28/2022 Hydronephrosis, left 07/20/2018 Staghorn calculus 07/20/2018 Calculus of kidney Tobacco use disorder documented as of this encounter (statuses as of 07/06/2023) Resolved Problems Problem Noted Date Diagnosed Date Resolved Date Backache 04/06/2008 04/27/2022 Hepatitis C without hepatic coma 11/17/2002 02/02/2022 Overview: HCV treated; SVR confirmed 01/28/2022 positive antibodies, positive HCV RNA 2,780,000 as of 02/24/2021 Anxiety state 04/27/2022 Major depressive disorder Overview: ICD-10 update of inactive term Gastroesophageal reflux dise ase with esophagitis without hemorrhage 3 documented as of this encounter (statuses as of 07/06/2023) Immunizations Name Administration Dates Next Due HEP A - Hepatitis A (Adult > 18 yrs) 05/05/2006 Hepatitis B, 20+ yrs 01/28/2022,08/29/19 22,07/28/2021,2006 Pneumococcal Conjugate Vacci ne, 20-valent ([id number]) 04/20/2022 Seasonal Influenza, PF, 6 M & above, IM , (FluLaval or Fluzone) 12/22/2022,04/27/2022 documented as of this encounter Social History Tobacco Use Types Packs/Day Years Used Date Smoking Tobacco: Every Day Cigarettes 1 42.9 Started: 1980 Passive Smoke Exposure: Never Smokeless Tobacco: Never Tobacco Cessation:Ready to Q uit: Not Asked; Counseling Given: Not Answered Comments:03/15/06 Alcohol Use Standard Drinks/Week Comments Yes [...] Sign Reading Time Taken Comments Blood Pressure 110/74 07/06/2023 1:19 PM EDT Pulse 86 07/06/2023 1:19 PM EDT Temperature 36.3 C (97.3 F) 07/06/2023 1:19 PM ED T Respiratory Rate 16 07/06/2023 1:19 PM EDT Oxygen Saturation - - Inhaled Oxygen Concentration - - Weight 61.4 kg (135 lb 5 oz) 07/06/2023 1:19 PM EDT Height - - Body Mass Index 21.84 05/05/2023 1:17 PM EST documented in this [...] (15 years old or older) No 07/21/19 Cognitive Status Response Date of Assessm ent Because of a physical, menta l, or emotional condition, do you have serious difficulty concentrating, remembering, or making decisions? (5 years old or older) No 07/20/2018 documented as of this encounter Nursing Notes * Sylvia Reno LPN - 07/06/2023 1:16 PM EDT Has dental sandra 07/07. Has broken tooth. The filling fell out. Has pain documented in this encounter Plan of Treatment Upcoming Encounters Date Type Department Care Team (Late st Contact Info) Description 07/07/2023 3:15 PM EDT Office Visit Gynecology/Obstetrics [facility] [address] [place] [address] Ned Gonzalez MD [address] [place] [address] 08/16/2023 3:15 PM EDT Office Visit Gynecology/Obstetrics [facility] [address] [place] [address] Ned Gonzalez MD [address] [place] [address] Health Maintenance Due Date Last Done Comments [...] as of this encounter Visit Diagnoses Diagnosis Pain, dental- Primary Unspecified disorder of the teeth and supporting structures Dental infection Acute apical periodontitis of pulpal origin documented in this encounter Advance Directives Latest Code Status on File Code Status Date Activated Date Inactivated Comments Full Code 07/20/2018 3:03 AM 07/22/2018 7:09 PM This order reflects the patients wishes and were consensually agreed upon. Question Answer Comments Discussion of Advance Directives occurred with: Patient
--- OUTSIDE RECORDS SUMMARY | 2023-07-31 12:19 | External Medical Summary | Summary of Care ---
Author Name Unknown Organization [facility] Address [address] [place] [address] Phone [phone] Care Team Providers Care Global Director Air And Climate Change Name Role Phone Obed Hernandez MD Primary Care Provider [phone] Encounter Details Date Type Department Care Team (Late st Contact Info) Description 02/19/2023 Telephone Family Medicine [address] [phone] Obed Hernandez MD [address] [place] [address] Allergies Active Allergy Reactions Criticality Noted Date Comments Diflunisal Nausea/vomiting 07/12/2008 Iodine 08/08/2021 Other Allergy (See Comments) High 05/17/2018 Iodine Containing Compounds Tramadol High 12/07/2001 Ultram/headache Trazodone 08/21/2005 Headache, nausea documented as of this encounter (statuses as of 05/21/2023) Medications No known medicationsdocumented as of this encounter (statuses as of 05/21/2023) Active Problems Problem Noted Date Diagnosed Date Hepatitis C virus infection cured after antiviral drug therapy 02/02/2022 Overview: HCV treated; SVR confirmed 01/28/2022 Hydronephrosis, left 07/20/2018 Staghorn calculus 07/20/2018 Calculus of kidney Tobacco use disorder documented as of this encounter (statuses as of 05/21/2023) Resolved Problems Problem Noted Date Diagnosed Date Resolved Date Backache 04/06/2008 04/27/2022 Hepatitis C without hepatic coma 11/17/2002 02/02/2022 Overview: HCV treated; SVR confirmed 01/28/2022 positive antibodies, positive HCV RNA 2,780,000 as of 02/24/2021 Anxiety state 04/27/2022 Major depressive disorder Overview: ICD-10 update of inactive term Gastroesophageal reflux dise ase with esophagitis without hemorrhage documented as of this encounter (statuses as of 05/21/2023) Immunizations Name Administration Dates Next Due HEP A - Hepatitis A (Adult > 18 yrs) 05/05/2006 Hepatitis B, 20+ yrs 01/28/2022,08/29/19 22,07/28/2021,2006 Pneumococcal Conjugate Vacci ne, 20-valent ([id number]) 04/20/2022 Seasonal Influenza, PF, 6 M & above, IM , (FluLaval or Fluzone) 12/22/2022,04/27/2022 documented as of this encounter Social History Tobacco Use Types Packs/Day Years Used Date Smoking Tobacco: Every Day Cigarettes 1 42.8 Started: 1980 Smokeless Tobacco: Never Comments:03/15/06 Alcohol Use Standard [...] encounter Miscellaneous Notes * Telephone Encounter - Gela Rivera OSA - 02/19/2023 4:50 PM EST Patient called again about meds making her sick, I called nurse desk, they said to let her know that Dr Jerome is not in today but is checking her messages, if meds are making her sick to stop taking them, her culture came back and showed no significant growth and the Dr will call her back documented in this encounter Plan of Treatment Upcoming Encounters Date Type Department Care Team (Late st Contact Info) Description 06/30/2023 10:30 AM EDT Office Visit Urology, [facility] 132 [facility] [place] [address] Oliverio Corona MD [address] [facility] [address] [place] [address] Health Maintenance Due Date Last Done Comments Depression Screening 1977 DTaP,Tdap,and Td Vaccines (1 - Tdap) 1984 Cologuard 2010 Colonoscopy 2010 Colorectal Cancer Screening 2010 Fecal Occult Blood Test 2010 Sigmoidoscopy 2010 LUNG CANCER SCREENING - USE SMARTSET 07633 08/06/2015 Zoster Vaccines (1 of 2) 08/06/2015 [...] Advance Directives occurred with: Patient Care Teams Global Director Air And Climate Change Relationship Specialty Start Date End Date Obed Hernandez MD [address] [place] [address] [place] [phone] PCP - General Family Medicine 10/29/22 documented as of this encounter
--- OUTSIDE RECORDS SUMMARY | 2023-07-31 12:19 | External Medical Summary ---
Author Name Unknown Address Unknown Organization K01:[facility] [address] [facility] [place] [address] Laboratory Report Ordering Provider Test Date Status PRESTON BELL 07/07/2023 16:49:29 Final Observation Date Value Abnormality Reference (Units ) Status SYNC LEUKOCYTES IN BLOOD BY AUTOMATED COUNT 07/07/2023 16:49:29 8.95 4.00-10.80 (K/uL) Final Segs 07/07/2023 16:49:29 54.0 40.0-75.0 (%) Final Lymphs % 07/07/2023 16:49:29 33.0 18.0-42.0 (%) Final Monos 07/07/2023 16:49:29 9.5 1.0-11.0 (%) Final Eosinophils 07/07/2023 16:49:29 2.3 0.0-6.0 (%) Final Basos 07/07/2023 16:49:29 1.1 0.0-2.0 (%) Final Immature Granulocyte, Percent 07/07/2023 16:49:29 0.1 0.0-2.0 (%) Final Absolute Segs 07/07/2023 16:49:29 4.83 1.80-7.70 (K/uL) Final Lymphs, absolute 07/07/2023 16:49:29 2.95 1.00-4.80 (K/ul) Final Monos, Abs 07/07/2023 16:49:29 0.85 0.00-1.10 (K/uL) Final Eos, Abs 07/07/2023 16:49:29 0.21 0.00-0.70 (K/uL) Final Basos, Abs 07/07/2023 16:49:29 0.10 0.00-0.20 (K/uL) Final Immature Granulocytes, Number 07/07/2023 16:49:29 0.01 0.00-0.20 (K/uL) Final Performing Location [facility] [address] [place], [place] [address]
--- OUTSIDE RECORDS SUMMARY | 2023-07-31 12:19 | External Medical Summary | Summary of Care ---
Author Name Unknown Organization [facility] Address [address] [place] [address] Phone [phone] Care Team Providers Care Fire Pot Operator Name Role Phone Unavailable Primary Care Provider Unavailabl e Reason for Visit * Reason Onset Date Comments Appointment 06/21/2023 Encounter Details Date Type Department Care Team (Late st Contact Info) Description 06/21/2023 Telephone Family Medicine [address] [phone] Obed Hernandez MD [address] [place] [address] [place] [address] Appointment Allergies Active Allergy Reactions Criticality Noted Date Comments Diflunisal Nausea/vomiting 07/12/2008 Iodine 08/08/2021 Other Allergy (See Comments) High 05/17/2018 Iodine Containing Compounds Tramadol High 12/07/2001 Ultram/headache Trazodone 08/21/2005 Headache, nausea documented as of this encounter (statuses as of 06/28/2023) Medications Medication Sig Dispensed Refills Start Date End Date Status Tylenol 325 MG Oral Capsule (Acetaminophen) Take 2 Tablets by mouth every 4 hours as needed for Pain, Mild. 0 Active documented as of this encounter (statuses as of 06/28/2023) Active Problems Problem Noted Date Diagnosed Date Hepatitis C virus infection cured after antiviral drug therapy 02/02/2022 Overview: HCV treated; SVR confirmed 01/28/2022 Hydronephrosis, left 07/20/2018 Staghorn calculus 07/20/2018 Calculus of kidney Tobacco use disorder documented as of this encounter (statuses as of 06/28/2023) Resolved Problems Problem Noted Date Diagnosed Date Resolved Date Backache 04/06/2008 04/27/2022 Hepatitis C without hepatic coma 11/17/2002 02/02/2022 Overview: HCV treated; SVR confirmed 01/28/2022 positive antibodies, positive HCV RNA 2,780,000 as of 02/24/2021 Anxiety state 04/27/2022 Major depressive disorder Overview: ICD-10 update of inactive term Gastroesophageal reflux dise ase with esophagitis without hemorrhage 3 documented as of this encounter (statuses as of 06/28/2023) Immunizations Name Administration Dates Next Due HEP A - Hepatitis A (Adult > 18 yrs) 05/05/2006 Hepatitis B, 20+ yrs 01/28/2022,08/29/19,07/28/2021,2006 Pneumococcal Conjugate Vacci ne, 20-valent ([id number]) 04/20/2022 Seasonal Influenza, PF, 6 M & [...] encounter Miscellaneous Notes * Telephone Encounter - Carolyn Crockett OSA - 06/28/2023 11:45 AM EDT Pt is already scheduled to see Roro Adamsfacundosusanne on 07/01/23. * Telephone Encounter - Sofia Scott RN - 06/25/2023 10:00 AM EDT Please call pt an offer an appt with Dr Hernandez on Wednesday * Telephone Encounter - Carolyn Crockett OSA - 06/24/2023 3:42 PM EDT There are no openings to make appt * Telephone Encounter - Rosie Sánchez OSA - 06/23/2023 5:22 PM EDT Pt called checking on the status of the prescription request. Pt was notified that she needs an appt. Pt wants to schedule an appt but only for the [place] location. No appts available. Please advise. * Telephone Encounter - David Qiu LPN - 06/23/2023 12:46 PM EDT Please contact patient to make apt for issues * Telephone Encounter - Dianna Gaspar OSA - 06/21/2023 2:11 PM EDT An order was requested for this patient. Name of Requesting Provider: PATIENT Order Requested: ANTIBIOTIC FOR A TOOTH PAIN Diagnosis/Reason for Request: TOOTH INFECTION If order request is for Mammogram: Is the patient having any breast symptoms? N/A Is there a chance of ? N/A Has the patient had any breast problems in the past? NA What location AND department does the patient wish to have their order completed at? NA Fax Number, if applicable: NA If the caller is not a current patient, please advise the patient to call their current PCP to havethe order's prior to being seen in our office. The patient was informed that our providers would not order anything (medication, labs, etc.) prior to being seen. documented in this encounter Plan of Treatment Upcoming Encounters Date Type Department Care Team (Late st Contact Info) Description 07/01/2023 9:40 AM EDT Office Visit Family Medicine [address] [place] [address] Roro Jacobsen PA-C [address] [place] [address] [place] [address] 07/07/2023 3:15 PM EDT [facility] [address] [place] [address] Ned Gonzalez MD [address] [place] [address] 08/16/2023 3:15 PM EDT [facility] [address] [place] [address] Ned Gonzalez MD [address] [place] [address] Health Maintenance Due Date Last Done Comments [...]
--- OUTSIDE RECORDS SUMMARY | 2023-07-31 12:19 | External Medical Summary | Summary of Care ---
Author Name Unknown Organization [facility] Address [address] [place] [address] Phone [phone] Care Team Providers Care Loom Doffer Name Role Phone Obed Hernandez MD Primary Care Provider Reason for Visit * Reason Onset Date Comments Test Results 04/12/2023 Encounter Details Date Type Department Care Team (Late st Contact Info) Description 04/12/2023 Telephone Nephrology, [facility] [address] [place] [address] Ermelinda Oropeza MD [address] [place] [address] Test Results Allergies Active Allergy Reactions Criticality [...] 01/28/2022,08/29/19 22,07/28/2021,2006 Pneumococcal Conjugate Vacci ne, 20-valent ([id number]) 04/20/2022 Seasonal Influenza, PF, 6 M & [...] encounter Miscellaneous Notes * Telephone Encounter - Hdoa Fletcher LPN - 05/04/2023 10:51 AM EST Letter sent * Telephone Encounter - Hoda Fletcher LPN - 04/16/2023 12:26 PM EST Pt has no MyG LMM to return call to the office so we can review lab results * Telephone Encounter - Hoda Fletcher LPN - 04/13/2023 9:19 AM EST Attempted to contact since no return call from pt was received yesterday LM on cell phone VM to return call to the office * Telephone Encounter - Hoda Fletcher LPN - 04/12/2023 11:46 AM EST ----- Message from Ermelinda Oropeza MD sent at 04/11/2023 9:56 PM EST ----- Urine from OV 3 wks back has no infection but shows lots of inflammation/irritation from stones shehas; mild albuminuria but believe this relates to stone burden. Blood tests show completely normal calcium and D stores; no evidence of hormone imbalance worsening/causing stone disease. * Telephone Encounter - Hoda Fletcher LPN - 04/12/2023 11:44 AM EST Attempted to contact Pt Pt is currently driving Pt will give office a call back to review * Telephone Encounter - Hoda Fletcher LPN - 04/12/2023 11:44 AM EST ----- Message from Ermelinda Oropeza MD sent at 04/11/2023 10:00 PM EST ----- ?if this is an overcollection >> pls ask; would've expected urine creatinine about 900 or 1200 here we have 1752. Pt w/ massive amounts of calcium in urine > recommend -ensure no D supplements -hctz 12.5 mg daily -food diary as discussed at OV and no more than 4676-0919 mg daily intake; offer her safety intern referral if she wants help w/ that After about 10 days on hctz recheck bmp documented in this encounter Plan of Treatment Upcoming Encounters Date Type Department Care Team (Late st Contact Info) Description 05/05/2023 1:00 PM EST Office Visit Gynecology/Obstetrics [facility] [address] [place] [address] Ned Gonzalez MD [address] [place] [address] 06/30/2023 10:30 AM EDT Office Visit Urology, [facility] [address] [place] [address] Oliverio Corona MD 27 [facility] [address] [place] [address] 12/10/2023 9:00 AM EDT Office Visit Nephrology, [facility] [address] [facility] [place] [address] Ermelinda Oropeza MD [address] [facility] [place] [address] Health Maintenance Due Date Last Done Comments Depression Screening 1977 DTaP,Tdap,and Td Vaccines (1 - Tdap) 1984 Cologuard 2010 Colonoscopy 2010 Colorectal Cancer Screening 2010 Fecal Occult Blood Test 2010 Sigmoidoscopy 2010 LUNG CANCER SCREENING - USE SMARTSET [id number] 08/06/2015 Zoster Vaccines (1 of 2) 08/06/2015 [...] Advance Directives occurred with: Patient Care Teams Loom Doffer Relationship Specialty Start Date End Date Obed Hernandez MD [address] [place] [address] [place] [address] PCP - General Family Medicine 10/29/22 documented as of this encounter
--- OUTSIDE RECORDS SUMMARY | 2023-07-31 12:20 | External Medical Summary | Summary of Care ---
Author Name Unknown Organization [facility] Address [address] [place] [address] Phone [phone] Care Team Providers Care Linecasting Machine Keyboard Operator Name Role Phone Tamika Roblero MD Primary Care Provider [phone] Reason for Visit * Reason Comments NEW PATIENT Renal calculi * Evaluate & Treat - Unlimited Visits (Within 30 days (routine)) - Pending Review Specialty Diagnoses / Procedures Referred By [place] hopper Referred To Contact Nephrology Diagnoses Calculus of kidney Oliverio Craft MD [address] [facility] [address] [place] [address] Referral ID Status Reason Start Date Expiration Date Visits Requested Visits Authorized [id number] Pending Review Specialty Services Required 03/10/[phone] Encounter Details Date Type Department Care Team (Late st Contact Info) Description 03/19/2023 1:00 PM EST Office Visit Fausto Saini [address] [place] [address] Ermelinda Oropeza MD [address] [place] [address] Nephrolithiasis* Allergies Active Allergy Reactions Criticality Noted Date Comments Diflunisal Nausea/vomiting 07/12/2008 Iodine 08/08/2021 Other Allergy (See Comments) High 05/17/2018 Iodine Containing Compounds Tramadol High 12/07/2001 Ultram/headache Trazodone 08/21/2005 Headache, nausea documented as of this encounter (statuses as of 04/11/2023) Medications Medication Sig Dispensed Refills Start Date End Date Status Tylenol 325 MG Oral Capsule (Acetaminophen) Take 2 Tablets by mouth every 4 hours as needed for Pain, Mild. 0 Active documented as of this encounter (statuses as of 04/11/2023) Active Problems Problem Noted Date Diagnosed Date Hepatitis C virus infection cured after antiviral drug therapy 02/02/2022 Overview: HCV treated; SVR confirmed 01/28/2022 Hydronephrosis, left 07/20/2018 Staghorn calculus 07/20/2018 Calculus of kidney Tobacco use disorder documented as of this encounter (statuses as of 04/11/2023) Resolved Problems Problem Noted Date Diagnosed Date Resolved Date Backache 04/06/2008 04/27/2022 Hepatitis C without hepatic coma 11/17/2002 02/02/2022 Overview: HCV treated; SVR confirmed 01/28/2022 positive antibodies, positive HCV RNA 2,780,000 as of 02/24/2021 Anxiety state 04/27/2022 Major depressive disorder Overview: ICD-10 update of inactive term Gastroesophageal reflux dise ase with esophagitis without hemorrhage 3 documented as of this encounter (statuses as of 04/11/2023) Immunizations Name Administration Dates Next Due HEP A - Hepatitis A (Adult > 18 yrs) 05/05/2006 Hepatitis B, 20+ yrs 01/28/2022,08/29/19 22,07/28/2021,2006 Pneumococcal Conjugate Vacci ne, 20-valent ([id number]) 04/20/2022 Seasonal Influenza, PF, 6 M & above, IM , (FluLaval or Fluzone) 12/22/2022,04/27/2022 documented as of this encounter Social History Tobacco Use Types Packs/Day Years Used Date Smoking Tobacco: Every Day Cigarettes 1 41 Started: 1980 Passive Smoke Exposure: Never Smokeless [...] Sign Reading Time Taken Comments Blood Pressure 131/84 03/19/2023 1:17 PM EST Rep eat Pulse 97 03/19/2023 1:14 PM EST Temperature 35.7 C (96.3 F) 03/19/2023 1:14 PM ES T Respiratory Rate 18 03/19/2023 1:14 PM EST Oxygen Saturation 97% 03/19/2023 1:14 PM EST Inhaled Oxygen Concentration - - Weight 62.7 kg (138 lb 4.8 oz) 03/19/2023 1:14 P M EST Height 167.6 cm (5' 6") 03/19/2023 1:14 PM EST Body Mass Index 22.32 03/19/2023 1:14 PM EST documented in this encounter Functional [...] No 07/20/2018 documented as of this encounter Patient Instructions * Patient Instructions* Ermelinda Oropeza MD - 03/19/2023 1:46 PM EST -avoid medicines like aleve, advil, ibuprofen, aspirin more than 81 mg daily and other NSAIDS whichare not good for kidney patients. Take only tylenol (acetaminophen) up to 2000 mg daily as needed for pain or as directed by your primary care provider. -check labs and do a 24 hr urine test -aim for at least 80-100 oz of daily fluid intake most of which should be water -eat a low sodium diet (less than 2000 mg or 1/2 tsp) daily -aim for about 7762-5876 mg calcium daily intake in your diet >>keep a food diary for 3-5 days >> write everything you eat or drink and how much in this timeframe; then calculate how much calcium is in that documented in this encounter Progress Notes * Ermelinda Oropeza MD - 03/19/2023 1:14 PM EST NEPHROLOGY CLINIC NOTE Nephrology, Fausto [facility] [address] 03/19/2023, 1:14 PM Patient Name: Greer Hull Greer Hull is a 57 year old female being seen in consultation today in Nephrology clinic, at the request of Oliverio Craft MD for nephrolithiasis. Past Medical History: Diagnosis Date Anxiety state Calculus of kidney Renal Calculus Cellulitis of arm 07/08/2003 Admitted to [facility] for cellulitis right antecubital fossa related to injecting heroin. 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 PMH includes L staghorn calculus w/ L hydropnephrosis, GERD, hx of HCV in the past (negative RNA levels 2021 and 2022), active tobacco abuse. STONE PROFILE Stone type : calcium oxalate; L staghorn First stone event: First stone episode in her 20s Most recent stone event: passed one on her own in 2022 approx one year back; had gross hematuria w/this Urologist: Dr Craft Most recent urologic procedure: Hx of remote lithotripsy, remote ureteral stent. Most recent 24 hr urine: never done one Most recent imaging: RUQ u/s 07/2021 > RIGHT KIDNEY: 11.5 cm. No hydronephrosis.Normal echogenicity. There is a shadowing echogenic focus measuring 0.7 cm. There is a shadowing echogenic focus in the lower pole measuring 1.2 cm. There is a simple cyst measuring 1.7 cm. An adjacent simple cyst measuring 1.9 cm is visualized.; liver wnl Stone meds: none Daily fluid intake: about 75-90 oz as below States they're hereditary > her mom, daughter have stones as do her 2 sisters and brother. Occasionally gets pain LUQ Takes 2-4 mg daily tylenol >>thinks they are 500 mg daily. 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 REVIEW OF SYSTEMS: No F/C, unintended wt loss or gain, energy level and appetite acceptable No acute visual changes or GEORGE No sinus, dental, throat pain No neck lumps/bumps or stiffness No palpitations, angina, orthopnea, LE edema No cough, wheeze, or dyspnea No N/V/D/C; does endorse intermittent mild LUQ abd pain No dysuria, hematuria, nocturia >2X; no new or worrisome voiding symptoms No rash or generalized itch No focal joint/muscle aches except occasionally No inappropriate bleeding or bruising No tremor, seizures, focal or global weakness or paresthesias No orthostatic or presyncopal symptoms; no falls Current Outpatient Medications Medication Sig Dispense Refill Tylenol 325 MG Oral Capsule (Acetaminophen) Take 2 Tablets by mouth every 4 hours as needed for Pain, Mild. No current facility-administered medications for this visit. Review of patient's allergies indicates: Allergen Reactions Other Allergy (See Comments) Iodine Containing Compounds Tramadol Ultram/headache Dolobid [Diflunisal] Nausea/vomiting Iodine Trazodone Headache, nausea Social History Socioeconomic History Marital status: Spouse name: Not on file Number of children: 1 Years of education: Not on file Highest education level: Not on file Occupational History Occupation: on disability Comment: bipolar,manic depression Tobacco Use Smoking status: Every Day Packs/day: 1.00 Years: 41.00 Additional pack years: 0.00 Total pack years: 41.00 Types: Cigarettes Start date: 1980 Passive exposure: [...] on file Housing Stability: Not on file Family History Problem Relation Age of Onset Cancer Father Heart Disorder Mother Family Status Relation Status Blade Alive Fa (Not Specified) Mo (Not Specified) PHYSICAL EXAMINATION: BP Readings from Last 6 Encounters: 04/02/23 138/80 03/19/23 131/84 02/17/23 130/70 12/22/22 122/70 08/20/22 122/62 06/30/22 110/76 Wt Readings from Last 6 Encounters: 04/02/23 62.6 kg (138 lb) 03/19/23 62.7 kg (138 lb 4.8 oz) 03/10/23 63.6 kg (140 lb 3.2 oz) 02/17/23 62.6 kg (138 lb) 08/20/22 62.1 kg (137 lb) 06/30/22 62.1 kg (137 lb) Pulse Readings from Last 6 Encounters: 03/19/23 97 02/17/23 89 08/20/22 60 06/30/22 105 06/05/22 88 06/02/22 87 NAD, oriented x 3, ambulatory and on table w/o asst Normocephalic, atraumatic, eomi nonicteric sclerae MMM Supple neck RRR w/o m/g/r; no edema CTAB w/ good air mvt NT abd, +BS, soft No CVA TTP, no diaper or olivarez 2+ radial and carotid pulses BL w/o carotid bruit No cyanosis or clubbing No rash No tremor, focal or global weakness; fluent speech ?reliable historian LABS: Recent Labs Units 03/19/23 1421 06/30/22 1352 05/13/21 1526 SODIUM - [facility] mmol/L 139 140 140 POTASSIUM - [facility] mmol/L 4.2 4.2 4.6 CHLORIDE - [facility] mmol/L 105 104 105 CO2 - [facility] mmol/L 23 25 24 BUN - [facility] mg/dL 16 17 17 CREATININE - [facility] mg/dL 0.6 0.7 0.9 ESTIMATED GLOMERULAR FILTRATION RATE - [facility] mL/min >90 >90 80 Recent Labs Units 06/30/22 1352 05/13/21 1526 HGB - [facility] g/dL 14.4 14.3 Recent Labs Units 03/19/23 1421 06/30/22 1352 05/13/21 1526 CALCIUM - [facility] mg/dL 9.9 9.9 9.2 PHOSPHORUS - [facility] mg/dL 3.5 -- -- 25-HYDROXY VITAMIN D - [facility] ng/mL 21 -- -- PTH - [facility] pg/mL 48 -- -- No results for input(s): "HGBA1C" in the last 60091 hours. Recent Labs Units 03/19/23 1427 ALBUMIN / CREATININE RATIO, URINE - [facility] mg/g Creat 169* Recent Labs Units 03/19/23 1427 CLARITY, URINE - [facility] Slightly Cloudy* GLUCOSE, URINE - [facility] mg/dL Negative BILIRUBIN, URINE - [facility] Negative KETONE, URINE - [facility] mg/dL Negative SPECIFIC GRAVITY, URINE - [facility] 1.012 BLOOD, URINE - [facility] Moderate* PH, URINE - [facility] Units 6.5 PROTEIN, URINE - [facility] mg/dL 30* UROBILINOGEN, URINE - [facility] mg/dL Normal NITRITE, URINE - [facility] Negative ESTERASE, URINE - [facility] Large* BACTERIA, URINE - [facility] /HPF >200* WBC, URINE - [facility] /HPF 50+* RBC, URINE - [facility] /HPF 30-49* PERTINENT IMAGING INFO: As above ASSESSMENT AND PLAN: Nephrolithiasis (Primary) - PTH - 25-HYDROXY VITAMIN D - PHOSPHORUS - BASIC METABOLIC PANEL - MAGNESIUM - URINALYSIS WITH MICROSCOPIC EXAM - ALBUMIN / CREATININE RATIO, URINE - URORISK(R) DIAGNOSTIC PROFILE; Future; Expected date: 03/19/2023 Follow Up: Return in about 4 months (around 07/18/2023) for clinic visit w/ , clinic visit w/ JULIETA. | For: clinic visit w/ , clinic visit w/ JULIETA | Check-out note: To lab F/u loyda smith or MV Calcium oxalate stones w/ hx L staghorn calculus reported and R stones on imaging spring -metabolic labs and 24 hr urine as above -fluid, sodium, calcium intake goals and rationales reviewed -food diary encouraged particuarlly for calcium mgt -no medicaitions fo rGUI stones but will assess for need -Dr Craft plans updated stone imgaing and will await that Patient Instructions -avoid medicines like aleve, advil, ibuprofen, aspirin more than 81 mg daily and other NSAIDS whichare not good for kidney patients. Take only tylenol (acetaminophen) up to 2000 mg daily as needed for pain or as directed by your primary care provider. -check labs and do a 24 hr urine test -aim for at least 80-100 oz of daily fluid intake most of which should be water -eat a low sodium diet (less than 2000 mg or 1/2 tsp) daily -aim for about 6050-2265 mg calcium daily intake in your diet >>keep a food diary for 3-5 days >> write everything you eat or drink and how much in this timeframe; then calculate how much calcium is in that Ermelinda Oropeza MD CC: Ref: OLIVERIO CRAFT[[id number]] [address] [place] [address] [facility] [place] [address] (office) [phone] (fax) PCP: TAMIKA ROBLERO [address] [place] [address] [place] [address] This chart was completed in part utilizing [employer] Speech Voice Recognition Software. Randomword insertions, pronoun errors, and incomplete sentences are an occasional consequence of this system due to software limitations, and ambient noise. Any questions or concerns about the content, text, or information contained within the body of this dictation should be directly addressed to the provider for clarification. documented in this encounter Nursing Notes * Hoda Fletcher LPN - 03/19/2023 1:13 PM EST Patient identified by verbal name and date of . New patient referral from Dr Oliverio Craft MD for renal calculi documented in this encounter Miscellaneous Notes * Result Encounter Note - Ermelinda Oropeza MD - 04/11/2023 9:56 PM EST Urine from OV 3 wks back has no infection but shows lots of inflammation/irritation from stones shehas; mild albuminuria but believe this relates to stone burden. Blood tests show completely normal calcium and D stores; no evidence of hormone imbalance worsening/causing stone disease. documented in this encounter Plan of Treatment Upcoming Encounters Date Type Department Care Team (Late st Contact Info) Description 04/22/2023 11:30 AM EST Office Visit Urology, [place] [address] [place] [address] Ayesha Smith MD [address] [place] [address] 05/05/2023 1:00 PM EST Office Visit Gynecology/Obstetrics [facility] [address] [facility] [place] [address] Ned Gonzalez MD [address] [facility] [place] [address] 06/30/2023 10:30 AM EDT Office Visit Urology, [facility] [address] [facility] [place] [address] Oliverio Craft MD [address] [place] [address] [place] [address] 12/10/2023 9:00 AM EDT Office Visit Nephrology, [facility] [address] [facility] [place] [address] Ermelinda Oropeza MD [address] [facility] [place] [address] Health Maintenance Due Date Last Done Comments COVID-19 Vaccine (#1) 02/04/1966 Depression Screening 1977 DTaP,Tdap,and Td Vaccines (1 - Tdap) 1984 Cologuard 2010 Colonoscopy 2010 Colorectal Cancer Screening 2010 Fecal Occult Blood Test 2010 Sigmoidoscopy 2010 LUNG CANCER SCREENING - USE SMARTSET 76090 08/06/2015 Zoster Vaccines (1 of 2) 08/06/2015 Mammogram 07/01/2023 06/30/2022 Pap Smear 12/22/2025 12/22/2022, 02, 12/07/2001, Additional history exists Lipid Panel 07/01/2027 [...] Procedure Name Priority Date/Time Associated Diagnosis Comments URINALYSIS WITH MICROSCOPIC EXAM Routine 03/19/2023 2:27 PM EST Nephrolithiasis ALBUMIN / CREATININE RATIO, URINE Routine 03/19/2023 2:27 PM EST Nephrolithiasis 25-HYDROXY VITAMIN D Routine 03/19/2023 2:21 PM EST Nephrolithiasis BASIC METABOLIC PANEL Routine 03/19/2023 2:21 PM EST Nephrolithiasis PHOSPHORUS Routine 03/19/2023 2:21 PM EST Nephrolithiasis PTH Routine 03/19/2023 2:21 PM EST Nephrolithiasis MAGNESIUM Routine 03/19/2023 2:21 PM EST Nephrolithiasis documented in this encounter Results * (ABNORMAL) URORISK(R) DIAGNOSTIC PROFILE (04/01/2023 3:33 PM EST) Total Urine Volume 3.08 >2.00 L/day 04/09/2023 6:34 PM EST [facility] Comment: This test was developed and its analytical performance characteristics have been determined by [facility]. It has not been cleared or approved by the FDA. This assay has been validated pursuant to the CLIA regulations and is used for clinical purposes. PH Urine 7.3(H) 5.5 - 7.0 04/09/2023 6:34 PM EST [facility] Calcium, 24 Hour Urine 265(H) <250.0 mg/day 04/09/2023 6:34 PM EST [facility] Comment: This test was developed and its analytical performance characteristics have been determined by [facility]. It has not been cleared or approved by the FDA. This assay has been validated pursuant to the CLIA regulations and is used for clinical purposes. Oxalate, 24 Hour Urine 94(H) <45 mg/day 04/09/2023 6:34 PM EST [facility] Comment: This test was developed and its analytical performance characteristics have been determined by [facility]. It has not been cleared or approved by the FDA. This assay has been validated pursuant to the CLIA regulations and is used for clinical purposes. Uric Acid, 24 Hour Urine 946(H) <700 mg/day 04/09/2023 6:34 PM EST [facility] Comment: This test was developed and its analytical performance characteristics have been determined by [facility]. It has not been cleared or approved by the FDA. This assay has been validated pursuant to the CLIA regulations and is used for clinical purposes. Citric Acid, 24 Hour Urine 696 >320 mg/day 04/09/2023 6:34 PM EST [facility] Comment: This test was developed and its analytical performance characteristics have been determined by [facility]. It has not been cleared or approved by the FDA. This assay has been validated pursuant to the CLIA regulations and is used for clinical purposes. Sodium, 24 Hour Urine 156 <200 mEq/day 04/09/2023 6:34 PM EST [facility] Comment: This test was developed and its analytical performance characteristics have been determined by [facility]. It has not been cleared or approved by the FDA. This assay has been validated pursuant to the CLIA regulations and is used for clinical purposes. Sulfate, 24 Hour Urine 13 <30 mmol/day 04/09/2023 6:34 PM EST [facility] Comment: This test was developed and its analytical performance characteristics have been determined by [facility]. It has not been cleared or approved by the FDA. This assay has been validated pursuant to the CLIA regulations and is used for clinical purposes. Phosphorus, 24 Hour Urine 1063 <1100 mg/day 04/09/2023 6:34 PM EST [facility] Comment: This test was developed and its analytical performance characteristics have been determined by [facility]. It has not been cleared or approved by the FDA. This assay has been validated pursuant to the CLIA regulations and is used for clinical purposes. Magnesium, 24 Hour Urine 198 >60.0 mg/day 04/09/2023 6:34 PM EST [facility] Comment: This test was developed and its analytical performance characteristics have been determined by [facility]. It has not been cleared or approved by the FDA. This assay has been validated pursuant to the CLIA regulations and is used for clinical purposes. Potassium, 24 Hour Urine 85 19 - 135 mEq/day 04/09/2023 6:34 PM EST [facility] Comment: This test was developed and its analytical performance characteristics have been determined by [facility]. It has not been cleared or approved by the FDA. This assay has been validated pursuant to the CLIA regulations and is used for clinical purposes. Creatinine, 24 Hour Urine 1752 600 - 1800 mg/day 04/09/2023 6:34 PM EST [facility] Comment: This test was developed and its analytical performance characteristics have been determined by [facility]. It has not been cleared or approved by the FDA. This assay has been validated pursuant to the CLIA regulations and is used for clinical purposes. Calcium Oxalate 2.69(H) <2.00 6:34 PM EST [facility] Brushite 3.35(H) <2.00 04/09/2023 6:34 PM EST [facility] Sodium Urate 1.45 <2.00 04/09/2023 6:34 PM EST [facility] Uric Acid 0.08 <2.00 04/09/2023 6:34 PM EST [facility] The Patient Has: SEE BELOW 04/09/19 6:34 PM EST [facility] Comment: Hypercalciuria Hyperoxaluria Hyperuricosuria High urinary pH Supersaturation Index: SEE BELOW 04/09/2023 6:34 PM EST [facility] Comment: Calcium oxalate Brushite (Ca phosphate) Suspected Problem Is: SEE BELOW 04/09/2023 6:34 PM EST [facility] Comment: Hypercalciuric Nephrolithiasis Hyperoxaluric Nephrolithiasis Hyperuricosuric Nephrolithiasis Comments DNR 04/09/2023 6:34 PM EST [facility] Comment: Test performed by: [facility] [address] [phone] Health Science Specialist: Joe Aguirre M.D. Test Reported by [facility] [place], [facility], [address] [place] [address] Ba Jerry M.D., Ph.D., Director of Laboratories , CLIA [id number] Urine Urine specimen / Unknown Non-blood Collection / Unknown 04/01/2023 3:33 PM EST 04/01/2023 3:33 PM EST Ermelinda Oropeza MD LAB URINE ORDERAB LES [facility] [employer] [place] [id number] [place], [place] * (ABNORMAL) ALBUMIN / CREATININE RATIO, URINE (03/19/2023 2:27 PM EST) Albumin, Random Urine 8.11 mg/dL 03/19/2023 11:01 PM EST [facility] Creatinine, Random Urine 48 mg/dL 03/19/2023 11:01 PM EST [facility] Albumin / Creatinine Ratio, Urine 169(H) <30 mg/g Creat 03/19/2023 11:01 PM EST [facility] Urine Urine specimen obtained by clean catch procedure / Unknown Non-blood Collection / Unknown 03/19/2023 2:27 PM EST 03/19/2023 2:27 PM EST Narrative [facility] - 03/19/2023 11:01 PM EST Normal: <30 mg/g creatinine High: 30-300 mg/g creatinine Very High: >300 mg/g creatinine Nephrotic: >2200 mg/g creatinine Ermelinda Oropeza MD LAB URINE ORDERAB LES [facility] [address] [place] [address] * (ABNORMAL) URINALYSIS WITH MICROSCOPIC EXAM (03/19/2023 2:27 PM EST) Color, Urine Light Yellow Colorless, Light Yellow, Yellow, Dark Yellow 03/19/2023 10:45 PM EST [facility] Clarity, Urine Slightly Cloudy(A) Clear 03/19/2023 10:45 PM EST [facility] Glucose, Urine Negative Negative mg/dL 03/19/2023 10:45 PM EST [facility] Bilirubin, Urine Negative Negative 03/19/2023 10:45 PM EST [facility] Ketone, Urine Negative Negative mg/dL 03/19/2023 10:45 PM EST [facility] Specific [place], Urine 1.012 1.003 - 1.030 03/19/2023 10:45 PM EST [facility] Blood, Urine Moderate(A) Negative 03/19/2023 10:45 PM EST [facility] pH, Urine 6.5 5.0 - 7.5 Units 03/19/2023 10:45 PM EST [facility] Protein, Urine 30(A) Negative mg/dL 03/19/2023 10:45 PM EST LABORATORY [facility] Urobilinogen, Urine Normal Normal mg/dL 03/19/2023 10:45 PM EST LABORATORY C Nitrite, Urine Negative Negative 03/19/2023 10:45 PM EST LABORATORY C Esterase, Urine Large(A) Negative 03/19/2023 10:45 PM EST [facility] RBC, Urine 30-49(A) 0 - 2 /HPF 03/19/2023 10:45 PM EST [facility] WBC, Urine 50+(A) 0 - 2 /HPF 03/19/2023 10:45 PM EST [facility] Bacteria, Urine >200(A) 0 - 25 /HPF 03/19/2023 10:45 PM EST LABORATORY C WBC Clumps, Urine Present(A) None /HPF 03/19/2023 10:45 PM EST [facility] Urine Non-blood Collection / Unknown 03/19/2023 2:27 PM EST 03/19/2023 2:27 PM EST Ermelinda Oropeza MD LAB URINE ORDERAB LES LABORATORY C [address] [place] [address] * MAGNESIUM (03/19/2023 2:21 PM EST) Magnesium 2.0 1.5 - 2.6 mg/dL 03/19/2023 3:26 PM EST [facility] 56- Blood Venous blood specimen / Unknown Venipuncture / Unknown 03/19/2023 2:21 PM EST 03/19/2023 2:21 PM EST Ermelinda Oropeza MD LAB BLOOD ORDERAB LES [address] [place] [address] * BASIC METABOLIC PANEL (03/19/2023 2:21 PM EST) BUN 16 6 - 20 mg/dL 03/19/2023 3:[address] Creatinine 0.6 0.5 - 1.0 mg/dL 03/19/2023 3:[address] Estimated Glomerular Filtration Rate >90 >=60 mL/min 03/19/2023 3:26 PM [facility] 56 Comment:eGFR is calculated b ased on the CKD-EPI 2020 equation Sodium 139 135 - 146 mmol/L 03/19/2023 3:26 PM [facility] [facility] Potassium 4.2 3.5 - 5.1 mmol/L 03/19/2023 3:26 PM [facility] 56- Chloride 105 98 - 107 mmol/L 03/19/2023 3:26 PM [facility] 56- CO2 23 22 - 32 mmol/L 03/19/2023 3:26 PM [facility] 56- Anion Gap 11 7 - 15 mmol/L 03/19/2023 3:26 PM [facility] 56- Glucose 95 70 - 120 mg/dL 03/19/2023 3:26 PM [facility] 56- Calcium 9.9 8.4 - 10.2 mg/dL 03/19/2023 3:26 PM [facility] 56- Blood Venous blood specimen / Unknown Venipuncture / Unknown 03/19/2023 2:21 PM EST 03/19/2023 2:21 PM EST Ermelinda Oropeza MD LAB BLOOD ORDERAB LES [facility] 56-[address] [place] [address] * PHOSPHORUS (03/19/2023 2:21 PM EST) Phosphorus 3.5 2.5 - 4.8 mg/dL 03/19/2023 3:26 PM EST [facility] 56-02 Blood Venous blood specimen / Unknown Venipuncture / Unknown 03/19/2023 2:21 PM EST 03/19/2023 2:21 PM EST Ermelinda Oropeza MD LAB BLOOD ORDERAB LES Performing Organization Address City/[facility]/ZIP Co de Phone Number [facility] [phone] [place] [address] * 25-HYDROXY VITAMIN D (03/19/2023 2:21 PM EST) 25-Hydroxy Vitamin D 21 >19 ng/mL 03/20/2023 6:33 AM EST [facility] [place] Venous blood specimen / Unknown Venipuncture / Unknown 03/19/2023 2:21 PM EST 03/19/2023 2:21 PM EST Narrative [facility] [place] 03/20/2023 6:33 AM EST Deficient: <20 ng/mL Insufficient: 20-29 ng/mL Recommended/Optimum:30-50 ng/mL Vitamin D intoxication is rare. If suspicious of Vitamin D toxicity, evaluation of serum Calcium and PTH is recommended. Ermelinda Oropeza MD LAB BLOOD ORDERAB LES [facility] [address] [place] [address] * PTH (03/19/2023 2:21 PM EST) PTH 48 15 - 65 pg/mL 03/20/2023 6:33 AM EST [facility] Blood Venous blood specimen / Unknown Venipuncture / Unknown 03/19/2023 2:21 PM EST 03/19/2023 2:21 PM EST Ermelinda Oropeza MD LAB BLOOD ORDERAB LES [facility] [address] [facility] [place] [address] documented in this encounter Visit Diagnoses Diagnosis Nephrolithiasis- Primary Calculus of kidney documented in this encounter Advance Directives Latest Code Status on File Code Status Date Activated Date Inactivated Comments Full Code 07/20/2018 3:03 AM 07/22/2018 7:09 PM This order reflects the patients wishes and were consensually agreed upon. Question Answer Comments Discussion of Advance Directives occurred with: Patient Care Teams Linecasting Machine Keyboard Operator Relationship Specialty Start Date End Date Tamika Roblero MD [address] [place] [address] [place] [address] PCP - General Family Medicine 10/29/22 documented as of this encounter
--- OUTSIDE RECORDS SUMMARY | 2023-07-31 12:20 | External Medical Summary ---
Author Name Unknown Address Unknown Organization K09[facility] [place] [address] Laboratory Report Ordering Provider Test Date Status JUDAH LEON 03/19/2023 14:21:24 Final Observation Date Value Abnormality Reference (Units ) Status BUN 03/19/2023 14:21:24 16 6-20 (mg/dL) Final Creatinine 03/19/2023 14:21:24 0.6 0.5-1.0 (mg/dL) Final Glomerular filtration rate/1.73 sq M.predicted [Volume Rate/Area] in Serum, Plasma or Blood by Creatinine-based formula (CKD-EPI) 03/19/2023 14:21:24 >90 >=60 (mL/min) Final eGFR is calculated based on the CKD-EPI 2020 equation SODIUM 03/19/2023 14:21:24 139 135-146 (m mol/L) Final Potassium 03/19/2023 14:21:24 4.2 3.5-5.1 (m mol/L) Final Cl 03/19/2023 14:21:24 105 98-107 (mm ol/L) Final CO2 03/19/2023 14:21:24 23 22-32 (mmo l/L) Final Anion gap 03/19/2023 14:21:24 11 7-15 (mmol /L) Final Glucose 03/19/2023 14:21:24 95 70-120 (mg /dL) Final Calcium 03/19/2023 14:21:24 9.9 8.4-10.2 ( mg/dL) Final Performing Location [facility] [place] [address]
--- OUTSIDE RECORDS SUMMARY | 2023-07-31 12:20 | External Medical Summary | Summary of Care ---
Author Name Unknown Organization [facility] Address [address] [place] [address] Phone [phone] Care Team Providers Care Materials Manager Name Role Phone Obed Hernandez MD Primary Care Provider Encounter Details Date Type Department Care Team (Late st Contact Info) Description 04/28/2023 Result Scan Unspecified Department <No scans attached> Allergies Active Allergy Reactions Criticality Noted Date Comments Diflunisal Nausea/vomiting 07/12/2008 Iodine 08/08/2021 Other Allergy (See Comments) High 05/17/2018 Iodine Containing Compounds Tramadol High 12/07/2001 Ultram/headache Trazodone 08/21/2005 Headache, nausea documented as of this encounter (statuses as of 04/30/2023) Medications Medication Sig Dispensed Refills Start Date End Date Status Tylenol 325 MG Oral Capsule (Acetaminophen) Take 2 Tablets by mouth every 4 hours as needed for Pain, Mild. 0 Active documented as of this encounter (statuses as of 04/30/2023) Active Problems Problem Noted Date Diagnosed Date Hepatitis C virus infection cured after antiviral drug therapy 02/02/2022 Overview: HCV treated; SVR confirmed 01/28/2022 Hydronephrosis, left 07/20/2018 Staghorn calculus 07/20/2018 Calculus of kidney Tobacco use disorder documented as of this encounter (statuses as of 04/30/2023) Resolved Problems Problem Noted Date Diagnosed Date Resolved Date Backache 04/06/2008 04/27/2022 Hepatitis C without hepatic coma 11/17/2002 02/02/2022 Overview: HCV treated; SVR confirmed 01/28/2022 positive antibodies, positive HCV RNA 2,780,000 as of 02/24/2021 Anxiety state 04/27/2022 Major depressive disorder Overview: ICD-10 update of inactive term Gastroesophageal reflux dise ase with esophagitis without hemorrhage 3 documented as of this encounter (statuses as of 04/30/2023) Immunizations Name Administration Dates Next Due HEP A - Hepatitis A (Adult > 18 yrs) 05/05/2006 Hepatitis B, 20+ yrs 01/28/2022,08/29/19 22,07/28/2021,2006 Pneumococcal Conjugate Vacci ne, 20-valent ([id number]) 04/20/2022 Seasonal Influenza, PF, 6 M & [...] as of this encounter Miscellaneous Notes * Result Encounter Note - Prema Patterson RN - 04/30/2023 8:17 AM EST Flu A, Flu B and covid not detected at [facility] documented in this encounter Plan of Treatment Upcoming Encounters Date Type Department Care Team (Late st Contact Info) Description 05/05/2023 1:00 PM EST Office Visit Gynecology/Obstetrics [facility] [address] [facility] [place] [address] Ned Gonzalez MD [address] [facility] [place] [address] 06/30/2023 10:30 AM EDT Office Visit Urology, [facility] 132 [facility] [place] [address] Oliverio Corona MD [address] [facility] [address] [place] [address] 12/10/2023 9:00 AM EDT Office Visit Nephrology, Fausto Jimenez 200 [facility] [place] [address] Ermelinda Oropeza MD 200 [facility] [place] [address] Health Maintenance Due Date Last Done Comments Depression Screening 1977 DTaP,Tdap,and Td Vaccines (1 - Tdap) 1984 Cologuard 2010 Colonoscopy 2010 Colorectal Cancer Screening 2010 Fecal Occult Blood Test 2010 Sigmoidoscopy 2010 LUNG CANCER SCREENING - USE SMARTSET 22553 08/06/2015 Zoster Vaccines (1 of 2) 08/06/2015 [...] Procedure Name Priority Date/Time Associated Diagnosis Comments OUTSIDE LAB RESULTS 04/28/2023 documented in this encounter Results * OUTSIDE LAB RESULTS (04/28/2023) 04/28/2023 No Physician Data Unknown LABORATORY documented in this encounter Advance Directives Latest Code Status on File Code Status Date Activated Date Inactivated Comments Full Code 07/20/2018 3:03 AM 07/22/2018 7:09 PM This order reflects the patients wishes and were consensually agreed upon. Question Answer Comments Discussion of Advance Directives occurred with: Patient Care Teams Materials Manager Relationship Specialty Start Date End Date Obed Hernandez MD [address] [place] [address] [place] [id number] PCP - General Family Medicine 10/29/22 documented as of this encounter
--- OUTSIDE RECORDS SUMMARY | 2023-07-31 12:20 | External Medical Summary ---
Author Name Unknown Address Unknown Organization K09:[facility] [address] Laboratory Report Ordering Provider Test Date Status JUDAH LEON 03/19/2023 14:21:24 Final Observation Date Value Abnormality Reference (Units ) Status Phosphate 03/19/2023 14:21:24 3.5 2.5-4.8 (m g/dL) Final Performing Location [facility] [address]
--- OUTSIDE RECORDS SUMMARY | 2023-07-31 12:20 | External Medical Summary | Summary of Care ---
Author Name Unknown Organization [facility] Address [address] [place] [place] [place] [address] Phone [phone] Care Team Providers Care Clinical Statistical Programmer Name Role Phone Obed Hernandez MD Primary Care Provider Reason for Visit * Reason Comments Outpatient Testing Encounter Details Date Type Department Care Team (Late st Contact Info) Description 04/01/2023 3:40 PM EST Laboratory Laboratory [address] [place] [phone] , Specimen Drop Off [address] [place] [address] Nephrolithiasis Allergies Active Allergy Reactions Criticality Noted Date Comments Diflunisal Nausea/vomiting 07/12/2008 Iodine 08/08/2021 Other Allergy (See Comments) High 05/17/2018 Iodine Containing Compounds Tramadol High 12/07/2001 Ultram/headache Trazodone 08/21/2005 Headache, nausea documented as of this encounter (statuses as of 04/01/2023) Medications Medication Sig Dispensed Refills Start Date End Date Status Tylenol 325 MG Oral Capsule (Acetaminophen) Take 2 Tablets by mouth every 4 hours as needed for Pain, Mild. 0 Active documented as of this encounter (statuses as of 04/01/2023) Active Problems Problem Noted Date Diagnosed Date Hepatitis C virus infection cured after antiviral drug therapy 02/02/2022 Overview: HCV treated; SVR confirmed 01/28/2022 Hydronephrosis, left 07/20/2018 Staghorn calculus 07/20/2018 Calculus of kidney Tobacco use disorder documented as of this encounter (statuses as of 04/01/2023) Resolved Problems Problem Noted Date Diagnosed Date Resolved Date Backache 04/06/2008 04/27/2022 Hepatitis C without hepatic coma 11/17/2002 02/02/2022 Overview: HCV treated; SVR confirmed 01/28/2022 positive antibodies, positive HCV RNA 2,780,000 as of 02/24/2021 Anxiety state 04/27/2022 Major depressive disorder Overview: ICD-10 update of inactive term Gastroesophageal reflux dise ase with esophagitis without hemorrhage 3 documented as of this encounter (statuses as of 04/01/2023) Immunizations Name Administration Dates Next Due HEP A - Hepatitis A (Adult > 18 yrs) 05/05/2006 Hepatitis B, 20+ yrs 01/28/2022,08/29/19 22,07/28/2021,2006 Pneumococcal Conjugate Vacci ne, 20-valent ([id number]) 04/20/2022 Seasonal Influenza, PF, 6 M & [...] Care Team (Late st Contact Info) Description 04/02/2023 9:00 AM EST Office Visit Gynecology/Obstetrics [facility] [address] [facility] [place] [address] Monika Vasques CRNP 132 [facility] [place] [address] 04/22/2023 11:30 AM EST Office Visit U[facility] [address] [place] [address] Ayesha Jimenez MD [address] [place] [address] 06/30/2023 10:30 AM EDT Office Visit Urology, [facility] [address] [facility] [place] [address] Oliverio Corona MD 27 [facility] [address] [place] [address] 12/10/2023 9:00 AM EDT Office Visit Nephrology, Fausto Jimenez [address] [place] [address] Ermelnida Oropeza MD [address] [place] [address] Pending Results Name Type Priority Associated Diagnoses Date /Time URORISK(R) DIAGNOSTIC PROFILE Lab Routine Nephrolithiasis 04/01/2023 3:33 PM EST Health Maintenance Due Date Last Done Comments COVID-19 Vaccine (#1) 02/04/1966 Depression Screening 1977 DTaP,Tdap,and Td Vaccines (1 - Tdap) 1984 Cologuard 2010 Colonoscopy 2010 Colorectal Cancer Screening 2010 Fecal Occult Blood Test 2010 Sigmoidoscopy 2010 LUNG CANCER SCREENING - USE SMARTSET 35382 08/06/2015 Zoster Vaccines (1 of 2) 08/06/2015 [...] as of this encounter Visit Diagnoses Diagnosis Nephrolithiasis Calculus of kidney documented in this encounter Advance Directives Latest Code Status on File Code Status Date Activated Date Inactivated Comments Full Code 07/20/2018 3:03 AM 07/22/2018 7:09 PM This order reflects the patients wishes and were consensually agreed upon. Question Answer Comments Discussion of Advance Directives occurred with: Patient Care Teams Clinical Statistical Programmer Relationship Specialty Start Date End Date Obed Hernandez MD [address] [place] [address] [place] [phone] PCP - General Family Medicine 10/29/22 documented as of this encounter
--- OUTSIDE RECORDS SUMMARY | 2023-07-31 12:20 | External Medical Summary | Summary of Care ---
Author Name Unknown Organization [facility] Address [address] [place] [address] Phone [phone] Care Team Providers Care Signalman Name Role Phone Obed Hernandez MD Primary Care Provider Encounter Details Date Type Department Care Team (Late st Contact Info) Description 04/30/2023 Orders Only Family Medicine [address] [place] [phone] Gen Garcia MD [address] [place] [address] [place] [address] Allergies Active Allergy Reactions Criticality Noted [...] 01/28/2022,08/29/19 22,07/28/2021,2006 Pneumococcal Conjugate Vacci ne, 20-valent ([id number]) 04/20/2022 Seasonal Influenza, PF, 6 M & [...] Note - Prema Patterson RN - 04/30/2023 8:18 AM EST Covid not detected at [facility] documented in this encounter Plan of Treatment Upcoming Encounters Date Type Department Care Team (Late st Contact Info) Description 05/05/2023 1:00 PM EST Office Visit Gynecology/Obstetrics [facility] 132 [facility] [place] [address] Ned Gonzalez [facility] [address] 06/30/2023 10:30 AM EDT Office Visit Urology, [facility] 132 [facility] [place] [address] Oliverio Corona MD 27 [facility] [address] [place] [address] 12/10/2023 9:00 AM EDT Office Visit Nephrology, [facility] [address] [place] [address] Ermelinda Oropeza MD [address] [place] [address] Health Maintenance Due Date Last Done Comments Depression Screening 1977 DTaP,Tdap,and Td Vaccines (1 - Tdap) 1984 Cologuard 2010 Colonoscopy 2010 Colorectal Cancer Screening 2010 Fecal Occult Blood Test 2010 Sigmoidoscopy 2010 LUNG CANCER SCREENING - USE SMARTSET 42557 08/06/2015 Zoster Vaccines (1 of 2) 08/06/2015 [...] Name Priority Date/Time Associated Diagnosis Comments OUTSIDE LAB-CORONAVIRUS (COVID-19) Routine 04/28/2023 documented in this encounter Results * OUTSIDE LAB-CORONAVIRUS (COVID-19) (04/28/2023) [id number] DE LAB NOT DETECTED NOT DETECTED OUTSIDE LAB (SEE SCANNED REPORT) 04/28/2023 Shannan Hernandez PA-C LABORATORY OUTSIDE LAB (SEE SCANNED REPORT) documented in this encounter Advance Directives Latest Code Status on File Code Status Date Activated Date Inactivated Comments Full Code 07/20/2018 3:03 AM 07/22/2018 7:09 PM This order reflects the patients wishes and were consensually agreed upon. Question Answer Comments Discussion of Advance Directives occurred with: Patient Care Teams Signalman Relationship Specialty Start Date End Date Obed Hernandez MD [address] [place] [address] [place] [address] PCP - General Family Medicine 10/29/22 documented as of this encounter
--- OUTSIDE RECORDS SUMMARY | 2023-07-31 12:20 | External Medical Summary ---
Author Name Unknown Address Unknown Organization : Laboratory Report Ordering Provider Test Date Status JUDAH LEON 04/01/2023 15:33:32 Final Observation Date Value Abnormality Reference (Units ) Status TOTAL URINE VOLUME 04/01/2023 15:33:32 3.08 > 2.00 (L/day) Final This test was developed and its analytical performance
characteristics have been determined by [facility]. It has not been cleared or approved by the
FDA. This assay has been validated pursuant to the CLIA
regulations and is used for clinical purposes. PH URINE 04/01/2023 15:33:32 7.3 Above high normal 5. 5-7.0 Final CALCIUM, 24 HOUR URINE 04/01/2023 15:33:32 265 Above high normal <250.0 (mg/day) Final This test was developed and its analytical performance
characteristics have been determined by [facility]. It has not been cleared or approved by the
FDA. This assay has been validated pursuant to the CLIA
regulations and is used for clinical purposes. OXALATE, 24 HOUR URINE 04/01/2023 15:33:32 94 Above h igh normal <45 (mg/day) Final This test was developed and its analytical performance
characteristics have been determined by [facility]. It has not been cleared or approved by the
FDA. This assay has been validated pursuant to the CLIA
regulations and is used for clinical purposes. URIC ACID, 24 HOUR URINE 04/01/2023 15:33:32 946 Above high normal <700 (mg/day) Fi nal This test was developed and its analytical performance
characteristics have been determined by [facility]. It has not been cleared or approved by the
FDA. This assay has been validated pursuant to the CLIA
regulations and is used for clinical purposes. CITRIC ACID, 24 HOUR URINE 04/01/2023 15:33:32 696 >320 (mg/day) Final This test was developed and its analytical performance
characteristics have been determined by [facility]. It has not been cleared or approved by the
FDA. This assay has been validated pursuant to the CLIA
regulations and is used for clinical purposes. SODIUM, 24 HOUR URINE 04/01/2023 15:33:32 156 <200 (mEq/day) Final This test was developed and its analytical performance
characteristics have been determined by [facility]. It has not been cleared or approved by the
FDA. This assay has been validated pursuant to the CLIA
regulations and is used for clinical purposes. SULFATE, 24 HOUR URINE 04/01/2023 15:33:32 13 <30 (mmol/day) Final This test was developed and its analytical performance
characteristics have been determined by [facility]. It has not been cleared or approved by the
FDA. This assay has been validated pursuant to the CLIA
regulations and is used for clinical purposes. PHOSPHORUS, 24 HOUR URINE 04/01/2023 15:33:32 1063 <1100 (mg/day) Final This test was developed and its analytical performance
characteristics have been determined by [facility]. It has not been cleared or approved by the
FDA. This assay has been validated pursuant to the CLIA
regulations and is used for clinical purposes. MAGNESIUM, 24 HOUR URINE 04/01/2023 15:33:32 198 >60.0 (mg/day) Final This test was developed and its analytical performance
characteristics have been determined by [facility]. It has not been cleared or approved by the
FDA. This assay has been validated pursuant to the CLIA
regulations and is used for clinical purposes. POTASSIUM, 24 HOUR URINE 04/01/2023 15:33:32 85 19-135 (mEq/day) Final This test was developed and its analytical performance
characteristics have been determined by [facility]. It has not been cleared or approved by the
FDA. This assay has been validated pursuant to the CLIA
regulations and is used for clinical purposes. CREATININE, 24 HOUR URINE 04/01/2023 15:33:32 1092 289-9883 (mg/day) Final This test was developed and its analytical performance
characteristics have been determined by [facility]. It has not been cleared or approved by the
FDA. This assay has been validated pursuant to the CLIA
regulations and is used for clinical purposes. CALCIUM OXALATE 04/01/2023 15:33:32 2.69 Above high nor mal <2.00 Final BRUSHITE 04/01/2023 15:33:32 3.35 Above high normal <2 .00 Final SODIUM URATE 04/01/2023 15:33:32 1.45 <2.00 Final URIC ACID 04/01/2023 15:33:32 0.08 <2.00 Final THE PATIENT HAS: 04/01/2023 15:33:32 SEE BELOW Final Hypercalciuria
Hyperoxa luria
Hyperuricosuria
High urinary pH SUPERSATURATION INDEX: 04/01/2023 15:33:32 SEE BELOW Final Calcium oxalate
Brushit e (Ca phosphate) SUSPECTED PROBLEM IS: 04/01/2023 15:33:32 SEE BELOW Final Hypercalciuric Nephrolithias is
Hyperoxaluric Nephrolithiasis
Hyperuricosuric Nephrolithiasis COMMENTS 04/01/2023 15:33:32 DNR Final Test performed by:
[facility]
[address] [facility]
[place] [address]

[phone]
Tag Maker: Joe Aguirre M.D.
Test Reported by [facility],
[place],
[address] [place], [place]
Ba Jerry M.D., Ph.D., Director of Laboratories
, [facility] [id number] Performing Location
--- OUTSIDE RECORDS SUMMARY | 2023-07-31 12:20 | External Medical Summary | Summary of Care ---
Author Name Unknown Organization [facility] Address [address] [place] [facility] [place] [place] [address] Phone [phone] Care Team Providers Care Shoelace Tipping Machine Operator Name Role Phone Obed Hernandez MD Primary Care Provider Reason for Visit * Reason Comments Outpatient Testing Encounter Details Date Type Department Care Team (Late st Contact Info) Description 04/01/2023 3:40 PM EST Laboratory Laboratory [address] [place] [phone] , Specimen Drop Off [address] [place] [address] Nephrolithiasis Allergies Active Allergy Reactions Criticality Noted Date Comments Diflunisal Nausea/vomiting 07/12/2008 Iodine 08/08/2021 Other Allergy (See Comments) High 05/17/2018 Iodine Containing Compounds Tramadol High 12/07/2001 Ultram/headache Trazodone 08/21/2005 Headache, nausea documented as of this encounter (statuses as of 05/03/2023) Medications Medication Sig Dispensed Refills Start Date End Date Status Tylenol 325 MG Oral Capsule (Acetaminophen) Take 2 Tablets by mouth every 4 hours as needed for Pain, Mild. 0 Active documented as of this encounter (statuses as of 05/03/2023) Active Problems Problem Noted Date Diagnosed Date Hepatitis C virus infection cured after antiviral drug therapy 02/02/2022 Overview: HCV treated; SVR confirmed 01/28/2022 Hydronephrosis, left 07/20/2018 Staghorn calculus 07/20/2018 Calculus of kidney Tobacco use disorder documented as of this encounter (statuses as of 05/03/2023) Resolved Problems Problem Noted Date Diagnosed Date Resolved Date Backache 04/06/2008 04/27/2022 Hepatitis C without hepatic coma 11/17/2002 02/02/2022 Overview: HCV treated; SVR confirmed 01/28/2022 positive antibodies, positive HCV RNA 2,780,000 as of 02/24/2021 Anxiety state 04/27/2022 Major depressive disorder Overview: ICD-10 update of inactive term Gastroesophageal reflux dise ase with esophagitis without hemorrhage 3 documented as of this encounter (statuses as of 05/03/2023) Immunizations Name Administration Dates Next Due HEP A - Hepatitis A (Adult > 18 yrs) 05/05/2006 Hepatitis B, 20+ yrs 01/28/2022,08/29/19 22,07/28/2021,2006 Pneumococcal Conjugate Vacci ne, 20-valent ([id number]) 04/20/2022 Seasonal Influenza, PF, 6 M & [...] Note - Ermelinda Oropeza MD - 04/11/2023 10:00 PM EST ?if this is an overcollection >> pls ask; would've expected urine creatinine about 900 or 1200 here we have 1752. 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 editor referral if she wants help w/ that After about 10 days on hctz recheck bmp documented in this encounter Plan of Treatment Upcoming Encounters Date Type Department Care Team (Late st Contact Info) Description 05/05/2023 1:00 PM EST Office Visit Gynecology/Obstetrics [facility] [address] [place] [address] Ned Gonzalez MD [address] [place] [address] 06/30/2023 10:30 AM EDT Office Visit Urology, [facility] [address] [place] [address] Oliverio Corona MD [address] [facility] [address] [place] [address] 12/10/2023 9:00 AM EDT Office Visit Nephrology, Fausto Jimenez 200 [facility] [place] [address] Ermelinda Oropeza MD 200 [facility] [place] [address] Health Maintenance Due Date Last Done Comments Depression Screening 1977 DTaP,Tdap,and Td Vaccines (1 - Tdap) 1984 Cologuard 2010 Colonoscopy 2010 Colorectal Cancer Screening 2010 Fecal Occult Blood Test 2010 Sigmoidoscopy 2010 LUNG CANCER SCREENING - USE SMARTSET 33071 08/06/2015 Zoster Vaccines (1 of 2) 08/06/2015 [...] Procedure Name Priority Date/Time Associated Diagnosis Comments URORISK(R) DIAGNOSTIC PROFILE Routine 04/01/2023 3:33 PM EST Nephrolithiasis documented in this encounter Results * (ABNORMAL) URORISK(R) DIAGNOSTIC PROFILE (04/01/2023 3:33 PM EST) Total Urine Volume 3.08 >2.00 L/day 04/09/2023 6:34 PM EST [facility] Comment: This test was developed and its analytical performance characteristics have been determined by [facility]. It has not been cleared or approved by the FDA. This assay has been validated pursuant to the CLIA regulations and is used for clinical purposes. PH Urine 7.3(H) 5.5 - 7.0 04/09/2023 6:34 PM EST [facility] Calcium, 24 Hour Urine 265(H) <250.0 mg/day 04/09/2023 6:34 PM EST [facility] Comment: This test was developed and its analytical performance characteristics have been determined by [facility]. It has not been cleared or approved by the FDA. This assay has been validated pursuant to the CLIA regulations and is used for clinical purposes. Oxalate, 24 Hour Urine 94(H) <45 mg/day 04/09/2023 6:34 PM EST [facility] Comment: This test was developed and its analytical performance characteristics have been determined by [facility]. It has not been cleared or [...] analytical performance characteristics have been determined by [facility]. It has not been cleared or [...] analytical performance characteristics have been determined by [facility]. It has not been cleared or approved by the FDA. This assay has been validated pursuant to the CLIA regulations and is used for clinical purposes. Calcium Oxalate 2.69(H) <2.00 4 6:34 PM EST [facility] Brushite 3.35(H) <2.00 04/09/2023 6:34 PM EST [facility] Sodium Urate 1.45 <2.00 04/09/2023 6:34 PM EST [facility] Uric Acid 0.08 <2.00 04/09/2023 6:34 PM EST [facility] The Patient Has: SEE BELOW 04/09/19 6:34 PM EST [facility] Comment: Hypercalciuria Hyperoxaluria Hyperuricosuria High urinary pH Supersaturation Index: SEE BELOW 04/09/2023 6:34 PM EST [facility] Comment: Calcium oxalate Brushite (Ca phosphate) Suspected Problem Is: SEE BELOW 04/09/2023 6:34 PM EST [facility] Comment: Hypercalciuric Nephrolithiasis Hyperoxaluric Nephrolithiasis Hyperuricosuric Nephrolithiasis Comments DNR 04/09/2023 6:34 PM EST [facility] Comment: Test performed by: [facility] [address] [place] [address] [place] Compounder: Joe Aguirre M.D. Test Reported by [facility], [address] [place] [address] Ba Jerry M.D., Ph.D., Director of Laboratories , [facility] [id number] Urine Urine specimen / Unknown Non-blood Collection / Unknown 04/01/2023 3:33 PM EST 04/01/2023 3:33 PM EST Ermelinda Oropeza MD LAB URINE ORDERAB LES Performing Organization Address City/State/[facility] Co de Phone Number Lost [facility] [place] [address] documented in this encounter Visit Diagnoses Diagnosis Nephrolithiasis Calculus of kidney documented in this encounter Advance Directives Latest Code Status on File Code Status Date Activated Date Inactivated Comments Full Code 07/20/2018 3:03 AM 07/22/2018 7:09 PM This order reflects the patients wishes and were consensually agreed upon. Question Answer Comments Discussion of Advance Directives occurred with: Patient Care Teams Shoelace Tipping Machine Operator Relationship Specialty Start Date End Date Obed Hernandez MD [address] [place] [address] [place] [address] PCP - General Family Medicine 10/29/22 documented as of this encounter
--- OUTSIDE RECORDS SUMMARY | 2023-07-31 12:20 | External Medical Summary | Summary of Care ---
Author Name Unknown Organization [facility] Address [address] [facility] [place] [address] Phone [phone] Care Team Providers Care Preschool Assistant Name Role Phone Obed Hernandez MD Primary Care Provider Reason for Visit * Reason Comments Outpatient Testing Encounter Details Date Type Department Care Team (Late st Contact Info) Description 04/01/2023 3:40 PM EST Laboratory Laboratory [address] [place] [phone] , Specimen Drop Off [address] [place] [address] Nephrolithiasis Allergies Active Allergy Reactions Criticality Noted [...] 01/28/2022,08/29/19 22,07/28/2021,2006 Pneumococcal Conjugate Vacci ne, 20-valent ([id number]) 04/20/2022 Seasonal Influenza, PF, 6 M & [...] 04/02/2023 9:00 AM EST Office Visit Gynecology/Obstetrics [facility] 132 [facility] [place] [address] Monika Vasques CRNP 132 [facility] [address] 04/22/2023 11:30 AM EST Office Visit Urology [place] [address] [place] [address] Ayesha Jimenez MD [address] [place] [address] 06/30/2023 10:30 AM EDT Office Visit Urology, [facility] 132 [facility] [place] [address] Oliverio Corona MD 27 [facility] [address] [place] [address] 12/10/2023 9:00 AM EDT Office Visit Nephrology, Fausto Jimenez [address] [place] [address] Ermelinda Oropeza MD [address] [place] [address] Pending Results Name Type Priority Associated Diagnoses Date /Time URORISK(R) DIAGNOSTIC PROFILE Lab Routine Nephrolithiasis 04/01/2023 3:33 PM EST Health Maintenance Due Date Last Done Comments COVID-19 Vaccine (#1) 02/04/1966 Depression Screening 1977 DTaP,Tdap,and Td Vaccines (1 - Tdap) 1984 Cologuard 2010 Colonoscopy 2010 Colorectal Cancer Screening 2010 Fecal Occult Blood Test 2010 Sigmoidoscopy 2010 LUNG CANCER SCREENING - USE SMARTSET 80649 08/06/2015 Zoster Vaccines (1 of 2) 08/06/2015 [...] Advance Directives occurred with: Patient Care Teams Preschool Assistant Relationship Specialty Start Date End Date Obed Hernandez MD [address] [place] [address] [place] [phone] PCP - General Family Medicine 10/29/22 documented as of this encounter
--- OUTSIDE RECORDS SUMMARY | 2023-07-31 12:20 | External Medical Summary ---
Author Name Unknown Address Unknown Organization [id number]:LABORATORY [facility] [place] - [address] [place] [address] Laboratory Report Ordering Provider Test Date Status JUDAH LEON 03/19/2023 14:21:24 Final Observation Date Value Abnormality Reference (Units ) Status Parathyrin.intact [Mass/volume] in Serum or Plasma 03/19/2023 14:21:24 48 15-65 (pg/mL) Final Performing Location LAB[facility]ATORY [facility] - [address] [place] [address]
--- OUTSIDE RECORDS SUMMARY | 2023-07-31 12:20 | External Medical Summary ---
Author Name Unknown Address Unknown Organization [id number]:[facility] [place] [address] [place] [address] Laboratory Report Ordering Provider Test Date Status JUDAH LEON 03/19/2023 14:27:44 Final Normal: <30 mg/g creatinine< br/>High: 30-300 mg/g creatinine
Very High: >300 mg/g creatinine
Nephrotic: >2200 mg/g creatinine Observation Date Value Abnormality Reference (Units ) Status Albumin, Urine 03/19/2023 14:27:44 8.11 (mg/dL) Final Creatinine, Urine 03/19/2023 14:27:44 48 (mg/dL) Final Albumin/Creatinine [Mass Ratio] in Urine 03/19/2023 14:27:44 169 Above high normal <30 (mg/g Creat) Final Performing Location [facility] [place] [address] [place] [address]
--- OUTSIDE RECORDS SUMMARY | 2023-07-31 12:20 | External Medical Summary | Summary of Care ---
Author Name Unknown Organization [facility] Address [address] [place] [address] Phone [phone] Care Team Providers Care Office Services Associate Name Role Phone Obed Hernandez MD Primary Care Provider Reason for Visit * Reason Onset Date Comments Test Results 04/12/2023 Encounter Details Date Type Department Care Team (Late st Contact Info) Description 04/12/2023 Telephone Nephrology, Fausto [place] 200 [place] [address] Ermelinda Oropeza MD 200 [place] [address] Test Results Allergies Active Allergy Reactions Criticality Noted Date Comments Diflunisal Nausea/vomiting 07/12/2008 Iodine 08/08/2021 Other Allergy (See Comments) High 05/17/2018 Iodine Containing Compounds Tramadol High 12/07/2001 Ultram/headache Trazodone 08/21/2005 Headache, nausea documented as of this encounter (statuses as of 04/12/2023) Medications Medication Sig Dispensed Refills Start Date End Date Status Tylenol 325 MG Oral Capsule (Acetaminophen) Take 2 Tablets by mouth every 4 hours as needed for Pain, Mild. 0 Active documented as of this encounter (statuses as of 04/12/2023) Active Problems Problem Noted Date Diagnosed Date Hepatitis C virus infection cured after antiviral drug therapy 02/02/2022 Overview: HCV treated; SVR confirmed 01/28/2022 Hydronephrosis, left 07/20/2018 Staghorn calculus 07/20/2018 Calculus of kidney Tobacco use disorder documented as of this encounter (statuses as of 04/12/2023) Resolved Problems Problem Noted Date Diagnosed Date Resolved Date Backache 04/06/2008 04/27/2022 Hepatitis C without hepatic coma 11/17/2002 02/02/2022 Overview: HCV treated; SVR confirmed 01/28/2022 positive antibodies, positive HCV RNA 2,780,000 as of 02/24/2021 Anxiety state 04/27/2022 Major depressive disorder Overview: ICD-10 update of inactive term Gastroesophageal reflux dise ase with esophagitis without hemorrhage 3 documented as of this encounter (statuses as of 04/12/2023) Immunizations Name Administration Dates Next Due HEP A - Hepatitis A (Adult > 18 yrs) 05/05/2006 Hepatitis B, 20+ yrs 01/28/2022,08/29/19 22,07/28/2021,2006 Pneumococcal Conjugate Vacci ne, 20-valent ([id number]) 04/20/2022 Seasonal Influenza, PF, 6 M & [...] encounter Miscellaneous Notes * Telephone Encounter - Hoda Fletcher LPN - 04/12/2023 11:47 AM EST See other lab result encounter * Telephone Encounter - Hoda Fletcher LPN - 04/12/2023 11:47 AM EST ----- Message from Ermelinda Oropeza [...] 04/22/2023 11:30 AM EST Office Visit Urology, [place] [address] [place] [address] Ayesha Jimenez MD [address] [place] [address] 05/05/2023 1:00 PM EST Office Visit Gynecology/Obstetrics [facility] 132 [facility] [place] [address] Ned Gonzalez MD [address] [place] [address] 06/30/2023 10:30 AM EDT Office Visit Urology, [facility] [address] [place] [address] Oliverio Corona MD 27 [facility] [place] [address] [place] [address] 12/10/2023 9:00 AM EDT Office Visit Nephrology, [facility] 200 [place] [address] OropezaErmelinda martin MD 200 [facility] [place] [address] Health Maintenance Due Date Last Done Comments COVID-19 Vaccine (#1) 02/04/1966 Depression Screening 1977 DTaP,Tdap,and Td Vaccines (1 - Tdap) 1984 Cologuard 2010 Colonoscopy 2010 Colorectal Cancer Screening 2010 Fecal Occult Blood Test 2010 Sigmoidoscopy 2010 LUNG CANCER SCREENING - USE SMARTSET 55952 08/06/2015 Zoster Vaccines (1 of 2) 08/06/2015 Mammogram 07/01/2023 06/30/2022 Pap Smear 12/22/2025 12/22/2022, 04/08, 12/07/2001, Additional history exists Lipid Panel 07/01/2027 06/30/2022, 02/24/2021 Cervical Cancer Screening 12/23/2027 HPV/Co-Test 12/23/2027 12/22/2022 Hepatitis B Completed 01/28/2022, 062 05/2021, 07/28/2021, Additional history exists Pneumococcal Vaccine: [...] Advance Directives occurred with: Patient Care Teams Office Services Associate Relationship Specialty Start Date End Date Obed Hernandez MD [address] [place] [address] [place] [address] PCP - General Family Medicine 10/29/22 documented as of this encounter
--- OUTSIDE RECORDS SUMMARY | 2023-07-31 12:20 | External Medical Summary | Summary of Care ---
Author Name Unknown Organization [facility] Address [address] [place] [address] Phone [phone] Care Team Providers Care Truck Mechanic Apprentice Name Role Phone Obed Hernandez MD Primary Care Provider [phone] Reason for Visit * Reason Comments Colposcopy Encounter Details Date Type Department Care Team ([facility] Contact Info) Description 04/02/2023 9:00 AM EST Office Visit Gynecology/Obstetric s Neal Liang [address] [place] [address] Monika Vasques CRNP [address] [place] [address] HSIL on Pap smear of cervix* Allergies Active Allergy Reactions Criticality Noted Date Comments Diflunisal Nausea/vomiting 07/12/2008 Iodine 08/08/2021 Other Allergy (See Comments) High 05/17/2018 Iodine Containing Compounds Tramadol High 12/07/2001 Ultram/headache Trazodone 08/21/2005 Headache, nausea documented as of this encounter (statuses as of 04/02/2023) Medications Medication Sig Dispensed Refills Start Date End Date Status Tylenol 325 MG Oral Capsule (Acetaminophen) Take 2 Tablets by mouth every 4 hours as needed for Pain, Mild. 0 Active documented as of this encounter (statuses as of 04/02/2023) Active Problems Problem Noted Date Diagnosed Date Hepatitis C virus infection cured after antiviral drug therapy 02/02/2022 Overview: HCV treated; SVR confirmed 01/28/2022 Hydronephrosis, left 07/20/2018 Staghorn calculus 07/20/2018 Calculus of kidney Tobacco use disorder documented as of this encounter (statuses as of 04/02/2023) Resolved Problems Problem Noted Date Diagnosed Date Resolved Date Backache 04/06/2008 04/27/2022 Hepatitis C without hepatic coma 11/17/2002 02/02/2022 Overview: HCV treated; SVR confirmed 01/28/2022 positive antibodies, positive HCV RNA 2,780,000 as of 02/24/2021 Anxiety state 04/27/2022 Major depressive disorder Overview: ICD-10 update of inactive term Gastroesophageal reflux dise ase with esophagitis without hemorrhage documented as of this encounter (statuses as of 04/02/2023) Immunizations Name Administration Dates Next Due HEP A - Hepatitis A (Adult > 18 yrs) 05/05/2006 Hepatitis B, 20+ yrs 01/28/2022,08/29/19 22,07/28/2021,2006 Pneumococcal Conjugate Vacci ne, 20-valent ([id number]) 04/20/2022 Seasonal Influenza, PF, 6 M & [...] Sign Reading Time Taken Comments Blood Pressure 138/80 04/02/2023 8:46 AM EST Pulse - - Temperature - - Respiratory Rate - - Oxygen Saturation - - Inhaled Oxygen Concentration - - Weight 62.6 kg (138 lb) 04/02/2023 8:46 AM EST Height 167.6 cm (5' 6") 04/02/2023 8:46 AM EST Body Mass Index 22.27 04/02/2023 8:46 AM EST documented in this encounter Functional Status [...] this encounter Patient Instructions * Patient Instructions* Monika Vasques CRNP - 04/02/2023 8:52 AM EST Post colposcopy instructions: You can expect a coffee ground discharge or light bleeding for about 1-2 weeks post procedure. Do not take Aspirin or aspirin-containing products ( it may increase the amount of vaginal bleedingand affect the ability to of the blood to clot). Take Tylenol or Advil for any discomfort Avoid heavy lifting, strenuous exercise, jogging, anything in the vagina ( intercourse, douching, tampons) for 7 days It is very important to keep all follow up appointments Call your health care provider if the following occurs: - Bright red vaginal bleeding- saturating a pad/hr - Foul smelling vaginal discharge - Pain - Fever of 100 degrees or greater documented in this encounter Progress Notes * Monika Vasques CRNP - 04/02/2023 8:52 AM EST Colposcopy Procedure Greer Hull presents for colposcopy for evaluation of recent pap showing: HSIL +HPV. Previous pap smears: 2021 HSIL, colposcopic guided biopsy showed BONIFACIO 3. She had a LEEP 07/2021. BP 138/80 | Ht 1.676 m (5' 6") | Wt 62.6 kg (138 lb) | LMP 10/15/2018 | BMI 22.27 kg/m | BSA 1.71m Reviewed in detail procedure, risks, benefits and indications. A ''time out'' was initiated by JACKSON Boland.The patient was identified by name and dateof . The correct procedure, and correct site identified. Correct positioning (as applicable). There is availability of necessary equipment. Pt states she is not allergic to latex. PE: bimanual exam: Not performed. external genitalia: No lesions. vagina: No lesions. cervix: Lesion #1 Location: 2 o'clock: Appearance: Acetowhite and Punctation; Completely visualized: yes; Biopsied: yes Lesion #2 Location: 4 o'clock: Appearance: Acetowhite and Atypical Vessels; Completely visualized: yes; Biopsied: yes Lesion #3 Location: 7 o'clock: Appearance: Acetowhite and Punctation; Completely visualized: yes; Biopsied: yes Lesion #4 Location: 11 o'clock: Appearance: Acetowhite and Mosaic; Completely visualized: yes; Biopsied: yes Transformation Zone: Incompletely seen Satisfactory Colposcopy: no due to atrophy/stenosis and scarring from LEEP Additional Biopsies: N/A ECC: yes Impression (R87.613) HSIL on Pap smear of cervix (primary encounter diagnosis) F/U results on any testing done. Strongly encouraged smoking cessation due to increase in risk of cervical dysplasia/cancer. Reviewed instructions including no sex, tampons, or douching for at least 7 days JACKSON Boland documented in this encounter Nursing Notes * Karma Vega LPN - 04/02/2023 8:48 AM EST Chief Complaint Patient presents with Colposcopy Patient's last menstrual period was 10/15/2018. Patient is postmenopausal. documented in this encounter Plan of Treatment Upcoming Encounters Date Type Department Care Team (Late st Contact Info) Description 04/22/2023 11:30 AM EST Office Visit Urology, [place] [address] [place] [address] Ayesha Jimenez MD [address] [place] [address] 06/30/2023 10:30 AM EDT Office Visit Urology, [facility] 132 [place] [address] Oliverio Corona MD 27 [facility] 270 [place] [address] 12/10/2023 9:00 AM EDT Office Visit Nephrology, [facility] [place] 200 [place] [address] Ermelinda Oropeza MD 200 [place] [address] Scheduled Orders Name Type Priority Associated Diagnoses Orde r Schedule SURGICAL PATHOLOGY Pathology Routine HSIL on Pap smear of cervix Ordered: 04/02/2023 Health Maintenance Due Date Last Done Comments COVID-19 Vaccine (#1) 02/04/1966 Depression Screening 1977 DTaP,Tdap,and Td Vaccines (1 - Tdap) 1984 Cologuard 2010 Colonoscopy 2010 Colorectal Cancer Screening 2010 Fecal Occult Blood Test 2010 Sigmoidoscopy 2010 LUNG CANCER SCREENING - USE SMARTSET [id number] 08/06/2015 Zoster Vaccines (1 of 2) 08/06/2015 Mammogram 07/01/2023 06/30/2022 Pap Smear 12/22/2025 12/22/2022, 04/08, 12/07/2001, Additional history exists Lipid Panel 07/01/2027 06/30/2022, 02/24/2021 Cervical Cancer Screening 12/23/2027 HPV/Co-Test 12/23/2027 12/22/2022 Hepatitis B Completed 01/28/2022, 0605/2021, 07/28/2021, Additional history exists Pneumococcal Vaccine: Pediatrics [...] as of this encounter Visit Diagnoses Diagnosis HSIL on Pap smear of cervix- Primary Papanicolaou smear of cervix with high grade squamous intraepithelial lesion (HGSIL) documented in this encounter Advance Directives Latest Code Status on File Code Status Date Activated Date Inactivated Comments Full Code 07/20/2018 3:03 AM 07/22/2018 7:09 PM This order reflects the patients wishes and were consensually agreed upon. Question Answer Comments Discussion of Advance Directives occurred with: Patient Care Teams Truck Mechanic Apprentice Relationship Specialty Start Date End Date Obed Hernandez MD [address] [place] [address] [place] [address] PCP - General Family Medicine 10/29/22 documented as of this encounter
--- OUTSIDE RECORDS SUMMARY | 2023-07-31 12:20 | External Medical Summary | Summary of Care ---
Author Name Unknown Organization [facility] Address [address] [facility] [place] [address] Phone [phone] Care Team Providers Care Community Development Director Name Role Phone Obed Hernandez MD Primary Care Provider [phone] Reason for Visit * Reason Comments Outpatient Testing Encounter Details Date Type Department Care Team (Late st Contact Info) Description 04/01/2023 3:40 PM EST Laboratory Laboratory [address] [place] [phone] , Specimen Drop Off [address] [place] [address] Nephrolithiasis Allergies Active Allergy Reactions Criticality Noted [...] 01/28/2022,08/29/19 22,07/28/2021,2006 Pneumococcal Conjugate Vacci ne, 20-valent ([id number]) 04/20/2022 Seasonal Influenza, PF, 6 M & [...] discussed at OV and no more than 1445-6834 mg daily intake; offer her adult and pediatric neurologist referral if she wants help w/ that After about 10 days on hctz recheck bmp documented in this encounter Plan of Treatment Upcoming Encounters Date Type Department Care Team (Late st Contact Info) Description 05/05/2023 1:00 PM EST Office Visit Gynecology/Obstetrics [facility] [address] [place] [address] Ned Gonzalez MD 132 [place] [address] 06/30/2023 10:30 AM EDT Office Visit Urology, [facility] 132 [place] [address] Oliverio Corona MD [address] [facility] 270 [place] [address] 12/10/2023 9:00 AM EDT Office Visit Nephrology, Fausto Jimenez [facility] [place] [address] Ermelinda Oropeza MD [facility] [place] [address] Health Maintenance Due Date Last Done Comments Depression Screening 1977 DTaP,Tdap,and Td Vaccines (1 - Tdap) 1984 Cologuard 2010 Colonoscopy 2010 Colorectal Cancer Screening 2010 Fecal Occult Blood Test 2010 Sigmoidoscopy 2010 LUNG CANCER SCREENING - USE SMARTSET [id number] 08/06/2015 Zoster Vaccines (1 of 2) 08/06/2015 [...] analytical performance characteristics have been determined by [facility]. It has not been cleared or [...] analytical performance characteristics have been determined by [facility]. It has not been cleared or approved by the FDA. This assay has been validated pursuant to the CLIA regulations and is used for clinical purposes. Oxalate, 24 Hour Urine 94(H) <45 mg/day 04/09/2023 6:34 PM EST [facility] Comment: This test was developed and its analytical performance characteristics have been determined by [facility]. It has not been cleared or [...] analytical performance characteristics have been determined by [facility]. It has not been cleared or [...] analytical performance characteristics have been determined by [facility]. It has not been cleared or [...] Acid 0.08 <2.00 04/09/2023 6:34 PM EST [facility] The Patient Has: SEE BELOW 04/09/19 6:34 PM EST [facility] Comment: Hypercalciuria Hyperoxaluria Hyperuricosuria High urinary pH Supersaturation Index: SEE BELOW 04/09/2023 6:34 PM EST [facility] Comment: Calcium oxalate Brushite (Ca phosphate) Suspected Problem Is: SEE BELOW 04/09/2023 6:34 PM EST [facility] Comment: Hypercalciuric Nephrolithiasis Hyperoxaluric Nephrolithiasis Hyperuricosuric Nephrolithiasis Comments DNR 04/09/2023 6:34 PM EST [facility] Comment: Test performed by: [facility] [id number] [place] [address] Construction Materials Tester: Joe Aguirre M.D. Test Reported by [facility], [facility], [address] [place] [id number] Ba Jerry M.D., Ph.D., Director of Laboratories , [facility] [id number] Urine Urine specimen / Unknown Non-blood Collection / Unknown 04/01/2023 3:33 PM EST 04/01/2023 3:33 PM EST Ermelinda Oropeza MD LAB URINE ORDERAB LES Performing Organization Address City/State/[facility] Co de Phone Number [facility] [place] [address] documented in this encounter Visit Diagnoses Diagnosis Nephrolithiasis Calculus of kidney documented in this encounter Advance Directives Latest Code Status on File Code Status Date Activated Date Inactivated Comments Full Code 07/20/2018 3:03 AM 07/22/2018 7:09 PM This order reflects the patients wishes and were consensually agreed upon. Question Answer Comments Discussion of Advance Directives occurred with: Patient Care Teams Community Development Director Relationship Specialty Start Date End Date Obed Hernandez MD [address] [place] [address] [place] [address] PCP - General Family Medicine 10/29/22 documented as of this encounter
--- OUTSIDE RECORDS SUMMARY | 2023-07-31 12:20 | External Medical Summary | Summary of Care ---
Author Name Unknown Organization [facility] Address [address] [place] [address] Phone [phone] Care Team Providers Care In Tube Conversion Technician Name Role Phone Obed Hernandez MD Primary Care Provider Encounter Details Date Type Department Care Team (Late st Contact Info) Description 03/10/2023 Telephone Urology, [place] [address] [place] [address] Ayesha Jimenez MD [address] [place] [address] Allergies Active Allergy Reactions Criticality Noted Date Comments Diflunisal Nausea/vomiting 07/12/2008 Iodine 08/08/2021 Other Allergy (See Comments) High 05/17/2018 Iodine Containing Compounds Tramadol High 12/07/2001 Ultram/headache Trazodone 08/21/2005 Headache, nausea documented as of this encounter (statuses as of 03/10/2023) Medications No known medicationsdocumented as of this encounter (statuses as of 03/10/2023) Active Problems Problem Noted Date Diagnosed Date Hepatitis C virus infection cured after antiviral drug therapy 02/02/2022 Overview: HCV treated; SVR confirmed 01/28/2022 Hydronephrosis, left 07/20/2018 Staghorn calculus 07/20/2018 Calculus of kidney Tobacco use disorder documented as of this encounter (statuses as of 03/10/2023) Resolved Problems Problem Noted Date Diagnosed Date Resolved Date Backache 04/06/2008 04/27/2022 Hepatitis C without hepatic coma 11/17/2002 02/02/2022 Overview: HCV treated; SVR confirmed 01/28/2022 positive antibodies, positive HCV RNA 2,780,000 as of 02/24/2021 Anxiety state 04/27/2022 Major depressive disorder Overview: ICD-10 update of inactive term Gastroesophageal reflux dise ase with esophagitis without hemorrhage 3 documented as of this encounter (statuses as of 03/10/2023) Immunizations Name Administration Dates Next Due HEP A - Hepatitis A (Adult > 18 yrs) 05/05/2006 Hepatitis B, 20+ yrs 01/28/2022,08/29/19 22,07/28/2021,2006 Pneumococcal Conjugate Vacci ne, 20-valent ([id number]) 04/20/2022 Seasonal Influenza, PF, 6 M & above, IM , (FluLaval or Fluzone) 12/22/2022,04/27/2022 documented as of this encounter Social History Tobacco Use Types Packs/Day Years Used Date Smoking Tobacco: Every Day Cigarettes 1 41 Started: 1980 Smokeless Tobacco: Never Comments:03/15/06 Alcohol [...] encounter Miscellaneous Notes * Telephone Encounter - Josy Kapoor OSA - 03/10/2023 12:58 PM EST Pt is scheduled * Telephone Encounter - Liborio De La O OSA - 03/10/2023 10:52 AM EST Patient was seen by Dr. Corona today and he is referring patient for a consultation with Dr. Jimenez in Urology [place]. Referral is in patient's chart. Please reach out to patient to schedule appointment. Thank you. documented in this encounter Plan of Treatment Upcoming Encounters Date Type Department Care Team (Late st Contact Info) Description 03/12/2023 4:00 PM EST Imaging Radiology [facility] 132 [facility] [place] [address] 03/19/2023 1:00 PM EST Office Visit Nephrology, Fausto Jimenez 200 [facility] [place] [address] Ermelinda Oropeza MD 200 [facility] [place] [address] 04/02/2023 9:00 AM EST Office Visit Gynecology/Obstetrics [facility] 132 [facility] [place] [address] AlvinoerMonika CRNP 132 [facility] [place] [address] 04/22/2023 11:30 AM EST [facility] [address] [place] [address] Ayesha Jimenez MD [address] [facility] [place] [address] 06/30/2023 10:30 AM EDT Office Visit Urology, [facility] 132 [facility] [place] [address] Oliverio Corona MD [address] [place] [address] [place] [address] Health Maintenance Due Date Last Done Comments COVID-19 Vaccine (#1) 02/04/1966 Depression Screening 1977 DTaP,Tdap,and Td Vaccines (1 - Tdap) 1984 Cologuard 2010 Colonoscopy 2010 Colorectal Cancer Screening 2010 Fecal Occult Blood Test 2010 Sigmoidoscopy 2010 LUNG CANCER SCREENING - USE SMARTSET [id number] 08/06/2015 Zoster Vaccines (1 of 2) 08/06/2015 [...] Advance Directives occurred with: Patient Care Teams In Tube Conversion Technician Relationship Specialty Start Date End Date Obed Hernandez MD [address] [place] [address] [place] [address] PCP - General Family Medicine 10/29/22 documented as of this encounter
--- OUTSIDE RECORDS SUMMARY | 2023-07-31 12:20 | External Medical Summary | Summary of Care ---
Author Name Unknown Organization [facility] Address [address] [facility] [place] [address] Phone [phone] Care Team Providers Care Enterprise Architect Name Role Phone Obed Hernandez MD Primary Care Provider [phone] Reason for Visit * Reason Onset Date Comments Test Results 04/06/2023 Encounter Details Date Type Department Care Team (Late st Contact Info) Description 04/06/2023 Telephone Gynecology/Obstetrics [facility] [address] [place] [address] Monika Vasques CRNP [address] [place] [address] Test Results Allergies Active Allergy Reactions Criticality Noted Date Comments Diflunisal Nausea/vomiting 07/12/2008 Iodine 08/08/2021 Other Allergy (See Comments) High 05/17/2018 Iodine Containing Compounds Tramadol High 12/07/2001 Ultram/headache Trazodone 08/21/2005 Headache, nausea documented as of this encounter (statuses as of 04/06/2023) Medications Medication Sig Dispensed Refills Start Date End Date Status Tylenol 325 MG Oral Capsule (Acetaminophen) Take 2 Tablets by mouth every 4 hours as needed for Pain, Mild. 0 Active documented as of this encounter (statuses as of 04/06/2023) Active Problems Problem Noted Date Diagnosed Date Hepatitis C virus infection cured after antiviral drug therapy 02/02/2022 Overview: HCV treated; SVR confirmed 01/28/2022 Hydronephrosis, left 07/20/2018 Staghorn calculus 07/20/2018 Calculus of kidney Tobacco use disorder documented as of this encounter (statuses as of 04/06/2023) Resolved Problems Problem Noted Date Diagnosed Date Resolved Date Backache 04/06/2008 04/27/2022 Hepatitis C without hepatic coma 11/17/2002 02/02/2022 Overview: HCV treated; SVR confirmed 01/28/2022 positive antibodies, positive HCV RNA 2,780,000 as of 02/24/2021 Anxiety state 04/27/2022 Major depressive disorder Overview: ICD-10 update of inactive term Gastroesophageal reflux dise ase with esophagitis without hemorrhage 3 documented as of this encounter (statuses as of 04/06/2023) Immunizations Name Administration Dates Next Due HEP A - Hepatitis A (Adult > 18 yrs) 05/05/2006 Hepatitis B, 20+ yrs 01/28/2022,08/29/19 22,07/28/2021,2006 Pneumococcal Conjugate Vacci ne, 20-valent ([id number]) 04/20/2022 Seasonal Influenza, PF, 6 M & [...] encounter Miscellaneous Notes * Telephone Encounter - Rosie Robertson LPN - 04/06/2023 4:04 PM EST Patient notified. Scheduled. * Telephone Encounter - Monika Vasques CRNP - 04/06/2023 2:44 PM EST BON[place]IO 3 on cervical biopsies, considered pre-cancerous. She needs to see a physician to discuss next steps. JACKSON Boland documented in this encounter Plan of Treatment Upcoming Encounters Date Type Department Care Team (Late st Contact Info) Description 04/22/2023 11:30 AM EST Office Visit Urology, [place] [address] [facility] [place] [address] Ayesha Jimenez MD [address] [place] [address] 05/05/2023 1:00 PM EST Office Visit Gynecology/Obstetrics [facility] [address] [place] [address] Ned Gonzalez MD [address] [place] [address] 06/30/2023 10:30 AM EDT Office Visit Urology, [facility] [address] [place] [address] Oliverio Corona MD [address] [place] [address] 12/10/2023 9:00 AM EDT Office Visit Nephrology, [facility] 200 [facility] [place] [address] Ermelinda Oropeza MD 200 [facility] [place] [address] Health Maintenance Due Date Last Done Comments COVID-19 Vaccine (#1) 02/04/1966 Depression Screening 1977 DTaP,Tdap,and Td Vaccines (1 - Tdap) 1984 Cologuard 2010 Colonoscopy 2010 Colorectal Cancer Screening 2010 Fecal Occult Blood Test 2010 Sigmoidoscopy 2010 LUNG CANCER SCREENING - USE SMARTSET [id number] 08/06/2015 Zoster Vaccines (1 of 2) 08/06/2015 [...] Advance Directives occurred with: Patient Care Teams Enterprise Architect Relationship Specialty Start Date End Date Obed Hernandez MD [address] [place] [address] [place] [id number] PCP - General Family Medicine 10/29/22 documented as of this encounter
--- OUTSIDE RECORDS SUMMARY | 2023-07-31 12:20 | External Medical Summary ---
Author Name Unknown Address Unknown Organization [id number]:[facility] [address] [facility] [address] Laboratory Report Ordering Provider Test Date Status JUDAH LEON 03/19/2023 14:27:44 Final Observation Date Value Abnormality Reference (Units ) Status Color of Urine by Auto 03/19/2023 14:27:44 Light Yellow Colorless, Light Yellow, Yellow, Dark Yellow Final Clarity, Urine 03/19/2023 14:27:44 Slightly Cloudy Abnormal Clear Final Glucose [Mass/volume] in Urine by Automated test strip 03/19/2023 14:27:44 Negative Negative (mg/dL) Final Bilirubin.total [Presence] in Urine by Automated test strip 03/19/2023 14:27:44 Negative Negative Final Ketones [Mass/volume] in Urine by Automated test strip 03/19/2023 14:27:44 Negative Negative (mg/dL) Final Specific gravity, Urine 03/19/2023 14:27:44 1.012 1.003-1.030 Final Hemoglobin [Presence] in Urine by Automated test strip 03/19/2023 14:27:44 Moderate Abnormal Negative Final pH, Urine 03/19/2023 14:27:44 6.5 5.0-7.5 (Units) Final Protein [Mass/volume] in Urine by Automated test strip 03/19/2023 14:27:44 30 Abnormal Negative (mg/dL) Final Urobilinogen [Mass/volume] in Urine by Automated test strip 03/19/2023 14:27:44 Normal Normal (mg/dL) Final Nitrite [Presence] in Urine by Automated test strip 03/19/2023 14:27:44 Negative Negative Final Leukocyte esterase [Presence] in Urine by Automated test strip 03/19/2023 14:27:44 Large Abnormal Negative Final RBC, Urine 03/19/2023 14:27:44 30-49 Abnormal 0-2 (/HPF) Final WBC, Urine 03/19/2023 14:27:44 50+ Abnormal 0-2 (/HPF) Final Bacteria [#/area] in Urine sediment by Microscopy high power field 03/19/2023 14:27:44 >200 Abnormal 0-25 (/HPF) Final Leukocyte clumps [#/area] in Urine sediment by Microscopy high power field 03/19/2023 14:27:44 Present Abnormal None (/HPF) Final Performing Location [facility] [address] [facility] [address]
--- OUTSIDE RECORDS SUMMARY | 2023-07-31 12:20 | External Medical Summary ---
Author Name Unknown Address Unknown Organization K09:[facility] [place] [address] Laboratory Report Ordering Provider Test Date Status JUDAH LEON 03/19/2023 14:21:24 Final Observation Date Value Abnormality Reference (Units ) Status Magnesium 03/19/2023 14:21:24 2.0 1.5-2.6 (m g/dL) Final Performing Location [facility] [place] [address]
--- OUTSIDE RECORDS SUMMARY | 2023-07-31 12:20 | External Medical Summary | Summary of Care ---
Author Name Unknown Organization [facility] Address [address] [place] [address] Phone [phone] Care Team Providers Care Jar Capper Name Role Phone Obed Hernandez MD Primary Care Provider Reason for Visit * Reason Onset Date Comments Test Results 04/22/2023 Encounter Details Date Type Department Care Team (Late st Contact Info) Description 04/22/2023 Telephone Nephrology, [facility]o [place] 200 [place] [address] Ermelinda Oropeza MD 200 [place] [address] Test Results Allergies Active Allergy Reactions Criticality Noted Date Comments Diflunisal Nausea/vomiting 07/12/2008 Iodine 08/08/2021 Other Allergy (See Comments) High 05/17/2018 Iodine Containing Compounds Tramadol High 12/07/2001 Ultram/headache Trazodone 08/21/2005 Headache, nausea documented as of this encounter (statuses as of 04/22/2023) Medications Medication Sig Dispensed Refills Start Date End Date Status Tylenol 325 MG Oral Capsule (Acetaminophen) Take 2 Tablets by mouth every 4 hours as needed for Pain, Mild. 0 Active documented as of this encounter (statuses as of 04/22/2023) Active Problems Problem Noted Date Diagnosed Date Hepatitis C virus infection cured after antiviral drug therapy 02/02/2022 Overview: HCV treated; SVR confirmed 01/28/2022 Hydronephrosis, left 07/20/2018 Staghorn calculus 07/20/2018 Calculus of kidney Tobacco use disorder documented as of this encounter (statuses as of 04/22/2023) Resolved Problems Problem Noted Date Diagnosed Date Resolved Date Backache 04/06/2008 04/27/2022 Hepatitis C without hepatic coma 11/17/2002 02/02/2022 Overview: HCV treated; SVR confirmed 01/28/2022 positive antibodies, positive HCV RNA 2,780,000 as of 02/24/2021 Anxiety state 04/27/2022 Major depressive disorder Overview: ICD-10 update of inactive term Gastroesophageal reflux dise ase with esophagitis without hemorrhage 3 documented as of this encounter (statuses as of 04/22/2023) Immunizations Name Administration Dates Next Due HEP A - Hepatitis A (Adult > 18 yrs) 05/05/2006 Hepatitis B, 20+ yrs 01/28/2022,08/29/19 22,07/28/2021,2006 Pneumococcal Conjugate Vacci ne, 20-valent ([id number]) 04/20/2022 Seasonal Influenza, PF, 6 M & [...] discussed at OV and no more than 1778-1364 mg daily intake; offer her director voice referral if she wants help w/ that After about 10 days on hctz recheck bmp documented in this encounter Plan of Treatment Upcoming Encounters Date Type Department Care Team (Late st Contact Info) Description 05/05/2023 1:00 PM EST Office Visit Gynecology/Obstetrics Neal Liang [address] [place] [address] Ned Gonzalez MD 132 [place] [address] 06/30/2023 10:30 AM EDT Office Visit Urology, [facility] [address] [place] [address] Oliverio Corona MD [address] [place] [address] 12/10/2023 9:00 AM EDT Office Visit Nephrology, [facility] 200 [facility] [place], [place] [address] Ermelinda Oropeza MD 200 [facility] [place] [address] Health Maintenance Due Date Last Done Comments COVID-19 Vaccine (#1) 02/04/1966 Depression Screening 1977 DTaP,Tdap,and Td Vaccines (1 - Tdap) 1984 Cologuard 2010 Colonoscopy 2010 Colorectal Cancer Screening 2010 Fecal Occult Blood Test 2010 Sigmoidoscopy 2010 LUNG CANCER SCREENING - USE SMARTSET [id number] 08/06/2015 Zoster Vaccines (1 of 2) 08/06/2015 [...] Advance Directives occurred with: Patient Care Teams Jar Capper Relationship Specialty Start Date End Date Obed Hernandez MD [address] [place] [address] [place] [phone] PCP - General Family Medicine 10/29/22 documented as of this encounter
--- OUTSIDE RECORDS SUMMARY | 2023-07-31 12:20 | External Medical Summary ---
Author Name Unknown Address Unknown Organization K01:[facility] [address] [place] [address] Laboratory Report Ordering Provider Test Date Status JUDAH LEON 03/19/2023 14:21:24 Final Deficient: <20 ng/mL
Ins ufficient: 20-29 ng/mL
Recommended/Optimum:30-50 ng/mL

Vitamin D intoxication is rare. If suspicious of Vitamin D toxicity, evaluation of serum Calcium and PTH is recommended. Observation Date Value Abnormality Reference (Units ) Status 25-OH Vitamin D total 03/19/2023 14:21:24 21 >19 (ng/mL) Final Performing Location LABORATORY C - [address] [place] [address]
--- OUTSIDE RECORDS SUMMARY | 2023-07-31 12:20 | External Medical Summary | Summary of Care ---
Author Name Unknown Organization [facility] Address [address] [place] [facility] [place] [address] Phone [phone] Care Team Providers Care Brass Pourer Name Role Phone Obed Hernandez MD Primary Care Provider [phone] Reason for Visit * Reason Comments Outpatient Testing Encounter Details Date Type Department Care Team (Late st Contact Info) Description 04/01/2023 3:40 PM EST Laboratory Laboratory [address] [place] [phone] , Specimen Drop Off [address] [place] [address] Nephrolithiasis Allergies Active Allergy Reactions Criticality Noted [...] 01/28/2022,08/29/19 22,07/28/2021,2006 Pneumococcal Conjugate Vacci ne, 20-valent ([id number]) 04/20/2022 Seasonal Influenza, PF, 6 M & [...] 04/02/2023 9:00 AM EST Office Visit Gynecology/Obstetrics [facility] 132 [facility] [place] [address] Monika Vasques CRNP 132 [place] [address] 04/22/2023 11:30 AM EST Office Visit Urology [place] [address] [place] [address] Ayesha Jimenez MD [address] [place] [address] 06/30/2023 10:30 AM EDT Office Visit Urology, [facility] 132 [facility] [place] [address] Oliverio Corona MD 27 [facility] 270 [place] [address] 12/10/2023 9:00 AM EDT Office Visit Nephrology, Fausto Jimenez 200 [address] [place] [address] Ermelinda Oropeza MD [address] [place] [address] Pending Results Name Type Priority Associated Diagnoses Date /Time URORISK(R) DIAGNOSTIC PROFILE Lab Routine Nephrolithiasis 04/01/2023 3:33 PM EST Health Maintenance Due Date Last Done Comments COVID-19 Vaccine (#1) 02/04/1966 Depression Screening 1977 DTaP,Tdap,and Td Vaccines (1 - Tdap) 1984 Cologuard 2010 Colonoscopy 2010 Colorectal Cancer Screening 2010 Fecal Occult Blood Test 2010 Sigmoidoscopy 2010 LUNG CANCER SCREENING - USE SMARTSET [id number] 08/06/2015 Zoster Vaccines (1 of 2) 08/06/2015 [...] Advance Directives occurred with: Patient Care Teams Brass Pourer Relationship Specialty Start Date End Date Obed Hernandez MD [address] [place] [address] [place] [phone] PCP - General Family Medicine 10/29/22 documented as of this encounter
--- OUTSIDE RECORDS SUMMARY | 2023-07-31 12:20 | External Medical Summary | Summary of Care ---
Author Name Unknown Organization [facility] Address [address] [place] [address] Phone [phone] Care Team Providers Care Cubing Machine Tender Name Role Phone Obed Hernandez MD Primary Care Provider Reason for Visit * Reason Comments Outpatient Testing Encounter Details Date Type Department Care Team (Late st Contact Info) Description 03/19/2023 2:30 PM EST Laboratory Laboratory [facility] [address] [place] [id number] [facility] [address] [place] [address] Arrived Allergies Active Allergy Reactions Criticality Noted Date Comments Diflunisal Nausea/vomiting 07/12/2008 Iodine 08/08/2021 Other Allergy (See Comments) High 05/17/2018 Iodine Containing Compounds Tramadol High 12/07/2001 Ultram/headache Trazodone 08/21/2005 Headache, nausea documented as of this encounter (statuses as of 03/19/2023) Medications Medication Sig Dispensed Refills Start Date End Date Status Tylenol 325 MG Oral Capsule (Acetaminophen) Take 2 Tablets by mouth every 4 hours as needed for Pain, Mild. 0 Active documented as of this encounter (statuses as of 03/19/2023) Active Problems Problem Noted Date Diagnosed Date Hepatitis C virus infection cured after antiviral drug therapy 02/02/2022 Overview: HCV treated; SVR confirmed 01/28/2022 Hydronephrosis, left 07/20/2018 Staghorn calculus 07/20/2018 Calculus of kidney Tobacco use disorder documented as of this encounter (statuses as of 03/19/2023) Resolved Problems Problem Noted Date Diagnosed Date Resolved Date Backache 04/06/2008 04/27/2022 Hepatitis C without hepatic coma 11/17/2002 02/02/2022 Overview: HCV treated; SVR confirmed 01/28/2022 positive antibodies, positive HCV RNA 2,780,000 as of 02/24/2021 Anxiety state 04/27/2022 Major depressive disorder Overview: ICD-10 update of inactive term Gastroesophageal reflux dise ase with esophagitis without hemorrhage 3 documented as of this encounter (statuses as of 03/19/2023) Immunizations Name Administration Dates Next Due HEP A - Hepatitis A (Adult > 18 yrs) 05/05/2006 Hepatitis B, 20+ yrs 01/28/2022,08/29/19 22,07/28/2021,2006 Pneumococcal Conjugate Vacci ne, 20-valent ([id number]) 04/20/2022 Seasonal Influenza, PF, 6 M & [...] Visit Gynecology/Obstetrics [facility] [address] [facility] [place] [address] Monika Vasques CRNP [address] [place] [address] 04/22/2023 11:30 AM EST Office Visit Urology [place] [address] [place] [address] Ayesha Jimenez MD [address] [place], [place] [id number] 06/30/2023 10:30 AM EDT Office Visit Urology, [facility] [address] [facility] [place] [address] Oliverio Corona MD [address] [facility] [address] [place] [address] 12/10/2023 9:00 AM EDT [facility] [address] [place] [address] Ermelinda Oropeza MD [address] [facility] [place] [address] Health Maintenance Due Date Last Done Comments COVID-19 Vaccine (#1) 02/04/1966 Depression Screening 1977 DTaP,Tdap,and Td Vaccines (1 - Tdap) 1984 Cologuard 2010 Colonoscopy 2010 Colorectal Cancer Screening 2010 Fecal Occult Blood Test 2010 Sigmoidoscopy 2010 LUNG CANCER SCREENING - USE SMARTSET [id number] 08/06/2015 Zoster Vaccines (1 of 2) 08/06/2015 [...] Advance Directives occurred with: Patient Care Teams Cubing Machine Tender Relationship Specialty Start Date End Date Obed Hernandez MD [address] [place] [address] [place] [phone] PCP - General Family Medicine 10/29/22 documented as of this encounter
--- OUTSIDE RECORDS SUMMARY | 2023-07-31 12:20 | External Medical Summary | Summary of Care ---
Author Name Unknown Organization [facility] Address [address] [place] [address] Phone [phone] Care Team Providers Care Technical Support 1 Software Engineer Name Role Phone Obed Hernandez MD Primary Care Provider [phone] Reason for Visit * Reason Comments Colposcopy Encounter Details Date Type Department Care Team ([facility] Contact Info) Description 04/02/2023 9:00 AM EST Office Visit Gynecology/Obstetric s Neal Liang [address] [place] [address] Monika Vasques CRNP [address] [place] [address] HSIL on Pap smear of cervix* Allergies [...] 01/28/2022,08/29/19 22,07/28/2021,2006 Pneumococcal Conjugate Vacci ne, 20-valent ([id number]) 04/20/2022 Seasonal Influenza, PF, 6 M & [...] 04/22/2023 11:30 AM EST Office Visit Urology, [place] [address] [place] [address] Ayesha Jimenez MD [address] [place] [address] 06/30/2023 10:30 AM EDT Office Visit Urology, [facility] [address] [place] [address] Oliverio Corona MD 27 [facility] [address] [place] [address] 12/10/2023 9:00 AM EDT Office Visit Nephrology, [facility] [address] [place] [address] Ermelinda Oropeza MD [address] [place] [address] Pending Results Name Type Priority Associated Diagnoses Date /Time SURGICAL PATHOLOGY Pathology Routine HSIL on Pap smear of cervix 04/02/2023 9:39 AM EST Health Maintenance Due Date Last Done Comments COVID-19 Vaccine (#1) 02/04/1966 Depression Screening 1977 DTaP,Tdap,and Td Vaccines (1 - Tdap) 1984 Cologuard 2010 Colonoscopy 2010 Colorectal Cancer Screening 2010 Fecal Occult Blood Test 2010 Sigmoidoscopy 2010 LUNG CANCER SCREENING - USE SMARTSET [id number] 08/06/2015 Zoster Vaccines (1 of 2) 08/06/2015 [...] Advance Directives occurred with: Patient Care Teams Technical Support 1 Software Engineer Relationship Specialty Start Date End Date Obed Hernandez MD [address] [place] [address] [place] [address] PCP - General Family Medicine 10/29/22 documented as of this encounter
--- OUTSIDE RECORDS SUMMARY | 2023-07-31 12:21 | External Medical Summary | Summary of Care ---
Author Name Unknown Organization [facility] Address [address] [place] [address] Phone [phone] Care Team Providers Care Wire Chief Name Role Phone Obed Hernandez MD Primary Care Provider [phone] Reason for Visit * Reason Onset Date Comments Advice 02/19/2023 Encounter Details Date Type Department Care Team ([facility] st Contact Info) Description 02/19/2023 Telephone Family Medicine [address] [phone] Obed Hernandez MD [address] [place] [address] Advice Allergies Active Allergy Reactions Criticality Noted Date Comments Diflunisal Nausea/vomiting 07/12/2008 Iodine 08/08/2021 Other Allergy (See Comments) High 05/17/2018 Iodine Containing Compounds Tramadol High 12/07/2001 Ultram/headache Trazodone 08/21/2005 Headache, nausea documented as of this encounter (statuses as of 02/19/2023) Medications Medication Sig Dispensed Refills Start Date End Date Status Nitrofurantoin Monohyd Macro 100 MG Oral Capsule (Macrobid)Indications :Acute pyelonephritis Take 1 Capsule by mouth in the morning and 1 Capsule before bedtime. Do all this for 7 days. With food until gone. 14 Capsule 0 02/17/2023 02/24/2023 Active documented as of this encounter (statuses as of 02/19/2023) Active Problems Problem Noted Date Diagnosed Date Hepatitis C virus infection cured after antiviral drug therapy 02/02/2022 Overview: HCV treated; SVR confirmed 01/28/2022 Hydronephrosis, left 07/20/2018 Staghorn calculus 07/20/2018 Calculus of kidney Tobacco use disorder documented as of this encounter (statuses as of 02/19/2023) Resolved Problems Problem Noted Date Diagnosed Date Resolved Date Backache 04/06/2008 04/27/2022 Hepatitis C without hepatic coma 11/17/2002 02/02/2022 Overview: HCV treated; SVR confirmed 01/28/2022 positive antibodies, positive HCV RNA 2,780,000 as of 02/24/2021 Anxiety state 04/27/2022 Major depressive disorder Overview: ICD-10 update of inactive term Gastroesophageal reflux dise ase with esophagitis without hemorrhage 3 documented as of this encounter (statuses as of 02/19/2023) Immunizations Name Administration Dates Next Due HEP A - Hepatitis A (Adult > 18 yrs) 05/05/2006 Hepatitis B, 20+ yrs 01/28/2022,08/29/19 22,07/28/2021,2006 Pneumococcal Conjugate Vacci ne, 20-valent ([id number]) 04/20/2022 Seasonal Influenza, PF, 6 M & [...] encounter Miscellaneous Notes * Telephone Encounter - David Qiu LPN - 02/19/2023 2:38 PM EST See prior note. Sent to Dr.Frank Brooks MD 02/17/2023 (in office), Visit date not found (telemedicine) * Telephone Encounter - Antonio Bartlett OSA - 02/19/2023 1:51 PM EST Patient is calling in requesting Bactrim if possible. What she is taking is making her feel more sick. * Telephone Encounter - David Qiu LPN - 02/19/2023 1:25 PM EST Macrobid ordered on 02/17/23 causing Nausea Please advise * Telephone Encounter - Maria D Leonard OSA - 02/19/2023 12:58 PM EST Pt called & the antibiotic that she started taking is making her sick. Pt is asking if theres another type of antibiotic. Please call pt back at [phone] documented in this encounter Plan of Treatment Upcoming Encounters Date Type Department Care Team (Late st Contact Info) Description 03/10/2023 10:30 AM EST Office Visit Urology, [facility] [address] [facility] [place] [address] Oliverio Corona MD 27 [facility] [address] [place] [address] 04/02/2023 9:00 AM EST Office Visit Gynecology/Ob[facility] [address] [place] [address] Monika Vasques CRNP [address] [place] [address] Health Maintenance Due Date Last Done Comments COVID-19 Vaccine (#1) 02/04/1966 Depression Screening 1977 DTaP,Tdap,and Td Vaccines (1 - Tdap) 1984 Cologuard 2010 Colonoscopy 2010 Colorectal Cancer Screening 2010 Fecal Occult Blood Test 2010 Sigmoidoscopy 2010 LUNG CANCER SCREENING - USE SMARTSET [id number] 08/06/2015 Zoster Vaccines (1 of 2) 08/06/2015 [...] Advance Directives occurred with: Patient Care Teams Wire Chief Relationship Specialty Start Date End Date Obed Hernandez MD [address] [place] [address] [place] [phone] PCP - General Family Medicine 10/29/22 documented as of this encounter
--- OUTSIDE RECORDS SUMMARY | 2023-07-31 12:21 | External Medical Summary ---
Author Name Unknown Address Unknown Organization K01:[facility] [place] [address] [place] [id number] Laboratory Report Ordering Provider Test Date Status XOCHILT CERVANTES 02/17/2023 16:28:05 Final Observation Date Value Abnormality Reference (Units) Status Bacteria identified in Specimen by Culture 02/17/2023 16:28:05 No significant growth Final Test: Culture, Urine, Quanti tative
Specimen Source: Urine, Clean Catch
Specimen Type: Urine
Specimen Date: 02/17/2023 4:28 PM
Result Date: 02/18/2023 5:25 PM
Result Status: Final result
Resulting Lab: [facility]
[address]
[facility] [address]

CULTURE

No significant growth

null Performing Location [facility] [address] [facility] [address]
--- OUTSIDE RECORDS SUMMARY | 2023-07-31 12:21 | External Medical Summary | Summary of Care ---
Author Name Unknown Organization [facility] Address [address] [place] [address] Phone [phone] Care Team Providers Care Youth Program Director Name Role Phone Obed Hernandez MD Primary Care Provider [phone] Reason for Visit * Reason Comments Acute Encounter Details Date Type Department Care Team ([facility] st Contact Info) Description 02/17/2023 3:20 PM EST Office Visit Family Medicine [address] [phone] Jocelynn Lopez MD [address] [place] [address] [place] [id number] Acute pyelonephritis*; Staghorn calculus Allergies Active Allergy Reactions Criticality Noted Date Comments Diflunisal Nausea/vomiting 07/12/2008 Iodine 08/08/2021 Other Allergy (See Comments) High 05/17/2018 Iodine Containing Compounds Tramadol High 12/07/2001 Ultram/headache Trazodone 08/21/2005 Headache, nausea documented as of this encounter (statuses as of 02/17/2023) Medications Medication Sig Dispensed Refills Start Date End Date Status Nitrofurantoin Monohyd Macro 100 MG Oral Capsule (Macrobid)Indications :Acute pyelonephritis Take 1 Capsule by mouth in the morning and 1 Capsule before bedtime. Do all this for 7 days. With food until gone. 14 Capsule 0 02/17/2023 02/24/2023 Active documented as of this encounter (statuses as of 02/17/2023) Active Problems Problem Noted Date Diagnosed Date Hepatitis C virus infection cured after antiviral drug therapy 02/02/2022 Overview: HCV treated; SVR confirmed 01/28/2022 Hydronephrosis, left 07/20/2018 Staghorn calculus 07/20/2018 Calculus of kidney Tobacco use disorder documented as of this encounter (statuses as of 02/17/2023) Resolved Problems Problem Noted Date Diagnosed Date Resolved Date Backache 04/06/2008 04/27/2022 Hepatitis C without hepatic coma 11/17/2002 02/02/2022 Overview: HCV treated; SVR confirmed 01/28/2022 positive antibodies, positive HCV RNA 2,780,000 as of 02/24/2021 Anxiety state 04/27/2022 Major depressive disorder Overview: ICD-10 update of inactive term Gastroesophageal reflux dise ase with esophagitis without hemorrhage 3 documented as of this encounter (statuses as of 02/17/2023) Immunizations Name Administration Dates Next Due HEP A - Hepatitis A (Adult > 18 yrs) 05/05/2006 Hepatitis B, 20+ yrs 01/28/2022,08/29/19 22,07/28/2021,2006 Pneumococcal Conjugate Vacci ne, 20-valent ([id number]) 04/20/2022 Seasonal Influenza, PF, 6 M & [...] Sign Reading Time Taken Comments Blood Pressure 130/70 02/17/2023 3:33 PM EST Pulse 89 02/17/2023 3:33 PM EST Temperature 36.3 C (97.4 F) 02/17/2023 3:33 PM ES T Respiratory Rate - - Oxygen Saturation 98% 02/17/2023 3:33 PM EST Inhaled Oxygen Concentration - - Weight 62.6 kg (138 lb) 02/17/2023 3:33 PM EST Height - - Body Mass Index 21.61 05/12/2022 3:19 PM EST documented in this encounter Functional [...] as of this encounter Progress Notes * Jocelynn Lopez MD - 02/17/2023 3:36 PM EST Dania Hull is a 57 year old female. Chief Complaint Patient presents with Acute HPI: Flank pain and hematuria x 1 day. Feels really tired, bladder pressure, left flank pain. Has h/o staghorn stone on left. Will follow up with her urologist in March. PMH: Patient Active Problem List Diagnosis Code Calculus of kidney N20.0 Tobacco use disorder F17.200 Hydronephrosis, left N13.30 Staghorn calculus N20.0 Hepatitis C virus infection cured after antiviral drug therapy Z86.19 Current Outpatient Medications Medication Sig Dispense Refill Nitrofurantoin Monohyd Macro 100 MG Oral Capsule (Macrobid) Take 1 Capsule by mouth in the morning and 1 Capsule before bedtime. Do all this for 7 days. With food until gone. 14 Capsule 0 No current facility-administered medications for this visit. Review of patient's allergies indicates: Allergen Reactions Other Allergy (See Comments) Iodine Containing Compounds Tramadol Ultram/headache Dolobid [Diflunisal] Nausea/vomiting Iodine Trazodone Headache, nausea Objective BP 130/70 | Pulse 89 | Temp 36.3 C (97.4 F) (Tympanic) | Wt 62.6 kg (138 lb) | LMP 10/15/2018 |SpO2 98% | BMI 21.61 kg/m | BSA 1.72 m Physical Exam Constitutional: Appearance: Normal appearance. Cardiovascular: Rate and Rhythm: Normal rate and regular rhythm. Pulses: Normal pulses. Heart sounds: Normal heart sounds. Pulmonary: Effort: Pulmonary effort is normal. Breath sounds: Normal breath sounds. Abdominal: Tenderness: There is left CVA tenderness. Neurological: Mental Status: She is alert. ASSESSMENT/PLAN: UTI (urinary tract infection) (Primary) - URINALYSIS, POINT OF CARE (ENTER/EDIT) - CULTURE, URINE, QUANTITATIVE - Nitrofurantoin Monohyd Macro 100 MG Oral Capsule (Macrobid); Take 1 Capsule by mouth in the morning and 1 Capsule before bedtime. Do all this for 7 days. With food until gone. Acute pyelonephritis - CULTURE, URINE, QUANTITATIVE - Nitrofurantoin Monohyd Macro 100 MG Oral Capsule (Macrobid); Take 1 Capsule by mouth in the morning and 1 Capsule before bedtime. Do all this for 7 days. With food until gone. Jocelynn Priest MD documented in this encounter Nursing Notes * David Qiu LPN - 02/17/2023 3:32 PM EST Chief Complaint Patient presents with Acute c/o flank pain and hematuria , which started last night. The patient has been properly identified by confirmation of name and date of . documented in this encounter Plan of Treatment Upcoming Encounters Date Type Department Care Team (Late st Contact Info) Description 03/10/2023 10:30 AM EST Office Visit Urology, [facility] [address] [facility] [place] [address] Oliverio Corona MD [address] [place] [address] 04/02/2023 9:00 AM EST Office Visit Gynecology/Obstetrics [facility] [address] [place] [address] Monika Vasques CRNP [address] [place] [address] Scheduled Orders Name Type Priority Associated Diagnoses Orde r Schedule CULTURE, URINE, QUANTITATIVE Lab Routine Acute pyelonephritis Ordered: 02/17/2023 Health Maintenance Due Date Last Done Comments COVID-19 Vaccine (#1) 02/04/1966 Depression Screening 1977 DTaP,Tdap,and Td Vaccines (1 - Tdap) 1984 Cologuard 2010 Colonoscopy 2010 Colorectal Cancer Screening 2010 Fecal Occult Blood Test 2010 Sigmoidoscopy 2010 LUNG CANCER SCREENING - USE SMARTSET [id number] 08/06/2015 Zoster Vaccines (1 of 2) 08/06/2015 [...] Procedure Name Priority Date/Time Associated Diagnosis Comments URINALYSIS, POINT OF CARE (ENTER/EDIT) Routine 02/17/2023 documented in this encounter Results * URINALYSIS, POINT OF CARE (ENTER/EDIT) (02/17/2023) Color, Urine Yellow Yellow or Light Yellow Clarity, Urine Cloudy Clear Glucose, Urine Negative Negative mg/dL Bilirubin, Urine Negative Negative Ketone, Urine Negative Negative mg/dL Specific [place], Urine 1.020 1.003 - 1.030 Blood, Urine Large Negative pH, Urine 6.0 5.0 - 7.5 units Protein, Urine 100 Negative mg/dL Urobilinogen, Urine 0.2 0.2 - 1.0 mg/dL Nitrite, Urine Negative Negative Esterase, Urine Large Negative Urine 02/17/2023 Jocelynn Guy MD LAB POINT OF CARE TEST ENTER/EDIT ORDERABLES documented in this encounter Visit Diagnoses Diagnosis Acute pyelonephritis- Primary Acute pyelonephritis without lesion of renal medullary necrosis Staghorn calculus Calculus of kidney documented in this encounter Advance Directives Latest Code Status on File Code Status Date Activated Date Inactivated Comments Full Code 07/20/2018 3:03 AM 07/22/2018 7:09 PM This order reflects the patients wishes and were consensually agreed upon. Question Answer Comments Discussion of Advance Directives occurred with: Patient Care Teams Youth Program Director Relationship Specialty Start Date End Date Obed Hernandez MD [address] [place] [address] [place] [address] PCP - General Family Medicine 10/29/22 documented as of this encounter"
--- OUTSIDE RECORDS SUMMARY | 2023-07-31 12:21 | External Medical Summary | Summary of Care ---
Author Name Unknown Organization [facility] Address [address] [place] [address] Phone [phone] Care Team Providers Care Bar Examiner Name Role Phone Obed Hernandez MD Primary Care Provider Reason for Visit * Reason Onset Date Comments Advice 02/19/2023 Encounter Details Date Type Department Care Team ([facility] st Contact Info) Description 02/19/2023 Telephone Family Medicine [address] [phone] Obed Hernandez MD [address] [place] [address] Advice Allergies Active Allergy Reactions Criticality Noted Date Comments Diflunisal Nausea/vomiting 07/12/2008 Iodine 08/08/2021 Other Allergy (See Comments) High 05/17/2018 Iodine Containing Compounds Tramadol High 12/07/2001 Ultram/headache Trazodone 08/21/2005 Headache, nausea documented as of this encounter (statuses as of 02/22/2023) Medications Medication Sig Dispensed Refills Start Date End Date Status Nitrofurantoin Monohyd Macro 100 MG Oral Capsule (Macrobid)Indications :Acute pyelonephritis Take 1 Capsule by mouth in the morning and 1 Capsule before bedtime. Do all this for 7 days. With food until gone. 14 Capsule 0 02/17/2023 02/24/2023 Active Sulfamethoxazole-Trim ethoprim 800-160 MG Oral Tablet (Bactrim DS) Take 1 Tablet by mouth in the morning and 1 Tablet before bedtime. Do all this for 7 days. Until gone. 14 Tablet 0 02/22/2023 03/01/2023 Active documented as of this encounter (statuses as of 02/22/2023) Active Problems Problem Noted Date Diagnosed Date Hepatitis C virus infection cured after antiviral drug therapy 02/02/2022 Overview: HCV treated; SVR confirmed 01/28/2022 Hydronephrosis, left 07/20/2018 Staghorn calculus 07/20/2018 Calculus of kidney Tobacco use disorder documented as of this encounter (statuses as of 02/22/2023) Resolved Problems Problem Noted Date Diagnosed Date Resolved Date Backache 04/06/2008 04/27/2022 Hepatitis C without hepatic coma 11/17/2002 02/02/2022 Overview: HCV treated; SVR confirmed 01/28/2022 positive antibodies, positive HCV RNA 2,780,000 as of 02/24/2021 Anxiety state 04/27/2022 Major depressive disorder Overview: ICD-10 update of inactive term Gastroesophageal reflux dise ase with esophagitis without hemorrhage 3 documented as of this encounter (statuses as of 02/22/2023) Immunizations Name Administration Dates Next Due HEP A - Hepatitis A (Adult > 18 yrs) 05/05/2006 Hepatitis B, 20+ yrs 01/28/2022,08/29/19 22,07/28/2021,2006 Pneumococcal Conjugate Vacci ne, 20-valent ([id number]) 04/20/2022 Seasonal Influenza, PF, 6 M & [...] encounter Miscellaneous Notes * Addendum Note - Billy Lopez MD - 02/22/2023 4:17 PM EST Addended by: BILLY BROCK on: 02/22/2023 04:17 PM Modules accepted: Orders * Telephone Encounter - Billy Lopez MD - 02/22/2023 4:15 PM EST Rx bactrim sent. * Telephone Encounter - David Qiu LPN [...] of antibiotic. Please call pt back at [phone] documented in this encounter Plan of Treatment Upcoming Encounters Date Type Department Care Team (Late st Contact Info) Description 03/10/2023 10:30 AM EST Office Visit Urology, [facility] [address] [place] [address] Oliverio Corona MD [address] [place] [address] [place] [address] 04/02/2023 9:00 AM EST Office Visit Gynecology/Obstetrics [facility] [address] [place] [address] BackerMonika CRNP [address] [place] [address] Health Maintenance Due Date Last Done Comments COVID-19 Vaccine (#1) 02[birth year]04/1966 Depression Screening 1977 DTaP,Tdap,and Td Vaccines (1 - Tdap) 1984 Cologuard 2010 Colonoscopy 2010 Colorectal Cancer Screening 2010 Fecal Occult Blood Test 2010 Sigmoidoscopy 2010 LUNG CANCER SCREENING - USE SMARTSET [id number] 08/06/2015 Zoster Vaccines (1 of 2) 08/06/2015 [...] Advance Directives occurred with: Patient Care Teams Bar Examiner Relationship Specialty Start Date End Date Obed Hernandez MD [address] [place] [address] [place] [address] PCP - General Family Medicine 10/29/22 documented as of this encounter
--- OUTSIDE RECORDS SUMMARY | 2023-07-31 12:21 | External Medical Summary | Summary of Care ---
Author Name Unknown Organization [facility] Address [address] [place] [address] Phone [phone] Care Team Providers Care Curtain Stretcher Name Role Phone Obed Hernandez MD Primary Care Provider Reason for Visit * Reason Onset Date Comments Advice 02/19/2023 Encounter Details Date Type Department Care Team ([facility] st Contact Info) Description 02/19/2023 Telephone Family Medicine [address] [phone] Obed Hernandez MD [address] [place] [address] Advice Allergies Active Allergy Reactions Criticality Noted Date Comments Diflunisal Nausea/vomiting 07/12/2008 Iodine 08/08/2021 Other Allergy (See Comments) High 05/17/2018 Iodine Containing Compounds Tramadol High 12/07/2001 Ultram/headache Trazodone 08/21/2005 Headache, nausea documented as of this encounter (statuses as of 02/23/2023) Medications Medication Sig Dispensed Refills Start Date [...] as of this encounter (statuses as of 02/23/2023) Active Problems Problem Noted Date Diagnosed Date Hepatitis C virus infection cured after antiviral drug therapy 02/02/2022 Overview: HCV treated; SVR confirmed 01/28/2022 Hydronephrosis, left 07/20/2018 Staghorn calculus 07/20/2018 Calculus of kidney Tobacco use disorder documented as of this encounter (statuses as of 02/23/2023) Resolved Problems Problem Noted Date Diagnosed Date Resolved Date Backache 04/06/2008 04/27/2022 Hepatitis C without hepatic coma 11/17/2002 02/02/2022 Overview: HCV treated; SVR confirmed 01/28/2022 positive antibodies, positive HCV RNA 2,780,000 as of 02/24/2021 Anxiety state 04/27/2022 Major depressive disorder Overview: ICD-10 update of inactive term Gastroesophageal reflux dise ase with esophagitis without hemorrhage 3 documented as of this encounter (statuses as of 02/23/2023) Immunizations Name Administration Dates Next Due HEP A - Hepatitis A (Adult > 18 yrs) 05/05/2006 Hepatitis B, 20+ yrs 01/28/2022,08/29/19 22,07/28/2021,2006 Pneumococcal Conjugate Vacci ne, 20-valent ([id number]) 04/20/2022 Seasonal Influenza, PF, 6 M & [...] Telephone Encounter - David Qiu LPN - 02/23/2023 9:39 AM EST Will need to contact her again VM box full HOME # INCORRECT * Addendum Note - Billy Lopez MD [...] of antibiotic. Please call pt back at [phone] documented in this encounter Plan of Treatment Upcoming Encounters Date Type Department Care Team (Late st Contact Info) Description 03/10/2023 10:30 AM EST Office Visit [facility] [place] [address] Oliverio Corona MD 27 [facility] [address] [place] [address] 04/02/2023 9:00 AM EST Office Visit Gynecology/Obstetrics [facility] [address] [place] [address] Monika Vasques CRNP 132 [facility] [place] [address] Health Maintenance Due Date Last Done Comments COVID-19 Vaccine (#1) 02/04/1966 Depression Screening 1977 DTaP,Tdap,and Td Vaccines (1 - Tdap) 1984 Cologuard 2010 Colonoscopy 2010 Colorectal Cancer Screening 2010 Fecal Occult Blood Test 2010 Sigmoidoscopy 2010 LUNG CANCER SCREENING - USE SMARTSET [id number] 08/06/2015 Zoster Vaccines (1 of 2) 08/06/2015 [...] Advance Directives occurred with: Patient Care Teams Curtain Stretcher Relationship Specialty Start Date End Date Obed Hernandez MD [address] [place] [address] [place] [address] PCP - General Family Medicine 10/29/22 documented as of this encounter
--- OUTSIDE RECORDS SUMMARY | 2023-07-31 12:21 | External Medical Summary | Summary of Care ---
Author Name Unknown Organization [facility] Address [address] [place] [address] Phone [phone] Care Team Providers Care Oxygen Therapy Technician Name Role Phone Obed Hernandez MD Primary Care Provider [phone] Reason for Visit * Reason Onset Date Comments Advice 02/19/2023 Encounter Details Date Type Department Care Team ([facility] st Contact Info) Description 02/19/2023 Telephone Family Medicine [address] [phone] Obed Hernandez MD [address] [place] [address] Advice Allergies Active Allergy Reactions Criticality Noted Date Comments Diflunisal Nausea/vomiting 07/12/2008 Iodine 08/08/2021 Other Allergy (See Comments) High 05/17/2018 Iodine Containing Compounds Tramadol High 12/07/2001 Ultram/headache Trazodone 08/21/2005 Headache, nausea documented as of this encounter (statuses as of 02/25/2023) Medications Medication Sig Dispensed Refills Start Date End Date Status Sulfamethoxazole-Trim ethoprim 800-160 MG Oral Tablet (Bactrim DS) Take 1 Tablet by mouth in the morning and 1 Tablet before bedtime. Do all this for 7 days. Until gone. 14 Tablet 0 02/22/2023 03/01/2023 Active Nitrofurantoin Monohyd Macro 100 MG Oral Capsule (Macrobid)Indications :Acute pyelonephritis Take 1 Capsule by mouth in the morning and 1 Capsule before bedtime. Do all this for 7 days. With food until gone. 14 Capsule 0 02/17/2023 02/24/2023 documented as of this encounter (statuses as of 02/25/2023) Active Problems Problem Noted Date Diagnosed Date Hepatitis C virus infection cured after antiviral drug therapy 02/02/2022 Overview: HCV treated; SVR confirmed 01/28/2022 Hydronephrosis, left 07/20/2018 Staghorn calculus 07/20/2018 Calculus of kidney Tobacco use disorder documented as of this encounter (statuses as of 02/25/2023) Resolved Problems Problem Noted Date Diagnosed Date Resolved Date Backache 04/06/2008 04/27/2022 Hepatitis C without hepatic coma 11/17/2002 02/02/2022 Overview: HCV treated; SVR confirmed 01/28/2022 positive antibodies, positive HCV RNA 2,780,000 as of 02/24/2021 Anxiety state 04/27/2022 Major depressive disorder Overview: ICD-10 update of inactive term Gastroesophageal reflux dise ase with esophagitis without hemorrhage 3 documented as of this encounter (statuses as of 02/25/2023) Immunizations Name Administration Dates Next Due HEP A - Hepatitis A (Adult > 18 yrs) 05/05/2006 Hepatitis B, 20+ yrs 01/28/2022,08/29/19 22,07/28/2021,2006 Pneumococcal Conjugate Vacci ne, 20-valent ([id number]) 04/20/2022 Seasonal Influenza, PF, 6 M & [...] encounter Miscellaneous Notes * Telephone Encounter - Nohemi Vilchis LPN - 02/25/2023 10:34 AM EST Message left with her mother that there's a new prescription at [facility] for knot picker cloth. * Telephone Encounter - David Qiu LPN - 02/23/2023 9:39 AM EST Will need to contact her again VM box full HOME # INCORRECT * Addendum Note - Jocelynn Lopez MD - 02/22/2023 4:17 PM EST Addended by: JOCELYNN BROCK on: 02/22/2023 04:17 PM Modules accepted: Orders * Telephone Encounter - Jocelynn Lopez MD - 02/22/2023 4:15 PM EST [...] Nausea Please advise * Telephone Encounter - Aisha Maria DJAYY - 02/19/2023 12:58 PM EST Pt called & the antibiotic that she started taking is making her sick. Pt is asking if theres another type of antibiotic. Please call pt back at [phone] documented in this encounter Plan of Treatment Upcoming Encounters Date Type Department Care Team (Late st Contact Info) Description 03/10/2023 10:30 AM EST Office Visit Urology, [facility] 132 [facility] [place] [address] Oliverio Corona MD 27 [facility] [address] [place] [address] 04/02/2023 9:00 AM EST Office Visit Gynecology/Obstetrics Neal Liang [address] [place] [address] Monika Vasques CRNP [address] [place] [address] Health Maintenance Due Date Last Done Comments COVID-19 Vaccine (#1) 02/04/1966 Depression Screening 1977 DTaP,Tdap,and Td Vaccines (1 - Tdap) 1984 Cologuard 2010 Colonoscopy 2010 Colorectal Cancer Screening 2010 Fecal Occult Blood Test 2010 Sigmoidoscopy 2010 LUNG CANCER SCREENING - USE SMARTSET [id number] 08/06/2015 Zoster Vaccines (1 of 2) 08/06/2015 [...] Advance Directives occurred with: Patient Care Teams Oxygen Therapy Technician Relationship Specialty Start Date End Date Obed Hernandez MD [address] [place] [address] [place] [phone] PCP - General Family Medicine 10/29/22 documented as of this encounter
--- OUTSIDE RECORDS SUMMARY | 2023-07-31 12:21 | External Medical Summary | Summary of Care ---
Author Name Unknown Organization [facility] Address [address] [place] [address] Phone [phone] Care Team Providers Care Acoustics Teacher Name Role Phone Obed Hernandez MD Primary Care Provider [phone] Reason for Visit * Reason Comments Acute Encounter Details Date Type Department Care Team ([facility] st Contact Info) Description 02/17/2023 3:20 PM EST Office Visit Family Medicine [address] [phone] Jocelynn Lopez MD [address] [place] [address] [place] [address] Acute pyelonephritis*; Staghorn calculus Allergies Active Allergy [...] 01/28/2022,08/29/19 22,07/28/2021,2006 Pneumococcal Conjugate Vacci ne, 20-valent ([id number]) 04/20/2022 Seasonal Influenza, PF, 6 M & [...] 03/10/2023 10:30 AM EST Office Visit Urology, [facility] [address] [facility] [place] [address] Oliverio Corona MD [address] [place] [address] [place] [address] 04/02/2023 9:00 AM EST Office Visit Gynecology/Obstetrics [facility] [address] [place] [address] Monika Vasques CRNP [address] [place] [address] Scheduled Orders Name Type Priority Associated Diagnoses Orde r Schedule CULTURE, URINE, QUANTITATIVE Lab Routine Acute pyelonephritis Ordered: 02/17/2023 Health Maintenance Due Date Last Done Comments COVID-19 Vaccine (#1) 02/04/1966 Depression Screening 1977 DTaP,Tdap,and Td Vaccines (1 - Tdap) 1984 Cologuard 2010 Colonoscopy 2010 Colorectal Cancer Screening 2010 Fecal Occult Blood Test 2010 Sigmoidoscopy 2010 LUNG CANCER SCREENING - USE SMARTSET [id number] 08/06/2015 Zoster Vaccines (1 of 2) 08/06/2015 [...] Negative Ketone, Urine Negative Negative mg/dL Specific [place], Urine 1.020 1.003 - 1.030 Blood, Urine [...] Advance Directives occurred with: Patient Care Teams Acoustics Teacher Relationship Specialty Start Date End Date Obed Hernandez MD [address] [place] [address] [place] [address] PCP - General Family Medicine 10/29/22 documented as of this encounter"
--- OUTSIDE RECORDS SUMMARY | 2023-07-31 12:21 | External Medical Summary | Summary of Care ---
Author Name Unknown Organization [facility] Address [address] [place] [address] Phone [phone] Care Team Providers Care Hospital Fellow Name Role Phone Obed Hernandez MD Primary Care Provider Encounter Details Date Type Department Care Team (Late st Contact Info) Description 03/10/2023 Telephone Urology, [place] [address] [place] [address] Ayesha Jimenez MD [address] [place] [address] Allergies Active Allergy Reactions Criticality [...] 01/28/2022,08/29/19 22,07/28/2021,2006 Pneumococcal Conjugate Vacci ne, 20-valent ([id number]) 04/20/2022 Seasonal Influenza, PF, 6 M & [...] encounter Miscellaneous Notes * Telephone Encounter - Liborio De L aO OSA - 03/10/2023 10:52 AM EST Patient was seen by Dr. Corona today and he is referring patient for a consultation with Dr. Jimenez in Urology [place]. Referral is in patient's chart. Please reach out to patient to schedule appointment. Thank you. documented in this encounter Plan of Treatment Upcoming Encounters Date Type Department Care Team (Late st Contact Info) Description 03/12/2023 4:00 PM EST Imaging Radiology [facility] 132 [facility] [place] [address] 03/19/2023 1:00 PM EST Office Visit Nephrology, Fausto Jimenez 200 [facility] [place] [address] Ermelinda Oropeza MD 200 [facility] [place] [address] 04/02/2023 9:00 AM EST Office Visit Gynecology/Obstetrics [facility] 132 [facility] [place] [address] AlvinoerMonika CRNP 132 [facility] [place] [address] 06/30/2023 10:30 AM EDT Office Visit [facility], [facility] [place] [address] Oliverio Corona MD 27 [facility] [address] [place] [address] Health Maintenance Due Date Last Done Comments COVID-19 Vaccine (#1) 02/04/1966 Depression Screening 1977 DTaP,Tdap,and Td Vaccines (1 - Tdap) 1984 Cologuard 2010 Colonoscopy 2010 Colorectal Cancer Screening 2010 Fecal Occult Blood Test 2010 Sigmoidoscopy 2010 LUNG CANCER SCREENING - USE SMARTSET [id number] 08/06/2015 Zoster Vaccines (1 of 2) 08/06/2015 [...] Advance Directives occurred with: Patient Care Teams Hospital Fellow Relationship Specialty Start Date End Date Obed Hernandez MD [address] [place] [address] [place] [address] PCP - General Family Medicine 10/29/22 documented as of this encounter
--- OUTSIDE RECORDS SUMMARY | 2023-07-31 12:21 | External Medical Summary | Summary of Care ---
Author Name Unknown Organization [facility] Address [address] [place] [address] Phone [phone] Care Team Providers Care Mobility Engineer Name Role Phone Obed Hernandez MD Primary Care Provider Reason for Visit * Reason Onset Date Comments Advice 02/19/2023 Encounter Details Date Type Department Care Team ([facility] st Contact Info) Description 02/19/2023 Telephone Family Medicine [address] [phone] Obed Hernandez MD [address] [place] [address] Advice Allergies Active Allergy Reactions Criticality [...] 01/28/2022,08/29/19 22,07/28/2021,2006 Pneumococcal Conjugate Vacci ne, 20-valent ([id number]) 04/20/2022 Seasonal Influenza, PF, 6 M & [...] of antibiotic. Please call pt back at [phone] documented in this encounter Plan of Treatment Upcoming Encounters Date Type Department Care Team (Late st Contact Info) Description 03/10/2023 10:30 AM EST Office Visit Urology, [facility] [address] [place] [address] Oliverio Corona MD [address] [place] [address] [place] [address] 04/02/2023 9:00 AM EST Office Visit Gynecology/Obstetrics [facility] [address] [place] [address] BackerMonika CRNP [address] [place] [address] Health Maintenance Due Date Last Done Comments COVID-19 Vaccine (#1) 02/04/1966 Depression Screening 1977 DTaP,Tdap,and Td Vaccines (1 - Tdap) 1984 Cologuard 2010 Colonoscopy 2010 Colorectal Cancer Screening 2010 Fecal Occult Blood Test 2010 Sigmoidoscopy 2010 LUNG CANCER SCREENING - USE SMARTSET [id number] 08/06/2015 Zoster Vaccines (1 of 2) 08/06/2015 [...] Advance Directives occurred with: Patient Care Teams Mobility Engineer Relationship Specialty Start Date End Date Obed Hernandez MD [address] [place] [address] [place] [address] PCP - General Family Medicine 10/29/22 documented as of this encounter
--- OUTSIDE RECORDS SUMMARY | 2023-07-31 12:21 | External Medical Summary | Summary of Care ---
Author Name Unknown Organization [facility] Address [address] [place] [address] Phone [phone] Care Team Providers Care Finance Admin Name Role Phone Tamika Roblero MD Primary Care Provider Reason for Referral * Evaluate & Treat - Unlimited Visits (Within 30 days (routine)) - Pending Review Specialty Diagnoses / Procedures Referred By Chuck hopper Referred To Contact Urology Diagnoses Calculus of kidney Oliverio Corona MD [address] [employer] [address] [place] [address] Referral ID Status Reason Start Date Expiration Date Visits Requested Visits Authorized [id number] Pending Review Specialty Services Required 03/10/2023 [id number] Question Answer Referral Priority Within 30 days (routine) Where should this appointment be scheduled? [facility] What is the patient being referred for? Kidney stone/calculi Has Imaging been done? Yes Comments Left partial staghorn calculus - Dr. Jimenez * Precert (Within 10 days (routine)) - Pending Review Specialty Diagnoses / Procedures Referred By Chuck hopper Referred To Contact Radiology Diagnoses Calculus of kidney Procedures CT ABD/PELVIS WO IV/ORAL CONTRAST Oliverio Corona MD [address] [employer] [address] [place] [address] Referral ID Status Reason Start Date Expiration Date V isits Requested Visits Authorized [id number] Pending Review 03/10/[id number] * Evaluate & Treat - Unlimited Visits (Within 30 days (routine)) - Pending Review Specialty Diagnoses / Procedures Referred By Chuck hopper Referred To Contact Nephrology Diagnoses Calculus of kidney Oliveroi Corona MD [address] [place] [address] Referral ID Status Reason Start Date Expiration Date Visits Requested Visits Authorized [id number] Pending Review Specialty Services Required 03/10/2023 [id number] Question Answer Referral Priority Within 30 days (routine) Where should this appointment be scheduled? [facility] What condition is this patient being seen for? Kidney stones Is patient currently symptomatic (flank pain, blood in urine)? No Reason for Visit * Reason Comments NEW PATIENT * Evaluate & Treat - Unlimited Visits (Within 10 days (routine)) - Closed Specialty Diagnoses / Procedures Referred By Chuck hopper Referred To Contact Urology Diagnoses Calculus of kidney Tamika Roblero MD [address] [place] [address] [place] [address] Referral ID Status Reason Start Date Expiration Date V isits Requested Visits Authorized [id number] Closed Specialty Services Required 08/20/2022 [id number] Encounter Details Date Type Department Care Team (Late st Contact Info) Description 03/10/2023 10:30 AM EST Office Visit Urology, [address] [place] [address] Oliverio Corona MD [address] [place] [phone] Calculus of kidney* Allergies Active Allergy Reactions Criticality Noted Date [...] 01/28/2022,08/29/19 22,07/28/2021,2006 Pneumococcal Conjugate Vacci ne, 20-valent ([id number]) 04/20/2022 Seasonal Influenza, PF, 6 M & [...] Pressure - - Pulse - - Temperature 36.9 C (98.4 F) 03/10/2023 10:[address] Respiratory Rate - - Oxygen Saturation - - Inhaled Oxygen Concentration - - Weight 63.6 kg (140 lb 3.2 oz) 03/10/2023 10:34 AM EST Height - - Body Mass Index 21.96 05/12/2022 3:19 PM EST documented in this [...] as of this encounter Progress Notes * Oliverio Corona MD - 03/10/2023 10:42 AM EST [id number] PCP: TAMIKA ROBLERO [address] [place] [address] [place] [address] Greer Hull is a 57 year old female, who presents for stone disease. Her past notes with in 2019 are reviewed, lost to follow-up. She notes she passes occasional stones, last a few months ago. Patient's past imaging is reviewed. She denies current colicky pain. Urolithiasis: Patient is being seen for stone disease today. Problem has been present for years.. They have had anumber of previous stones., They have been hospitalized for stone in the past., and They have previously required surgery for stone management. Severity is moderate Problem is about the same. Patient has had the following imaging done: CT scan, ultrasound, and KUB. In the past they have hadextracorporeal shockwave lithotripsy, ureteral stent placement, and ureteroscopy with laser lithotripsy to manage their stones. Stone composition is calcium oxalate. Previous evaluation was done by urologist. No current outpatient medications on file. No current facility-administered medications for this visit. Review of patient's allergies indicates: Allergen Reactions Other Allergy (See Comments) Iodine Containing Compounds Tramadol Ultram/headache Dolobid [Diflunisal] Nausea/vomiting Iodine Trazodone Headache, nausea Social History: Social History Tobacco Use Smoking status: Every Day Packs/day: 1.00 Years: 41.00 Additional pack years: 0.00 Total pack years: 41.00 Types: Cigarettes Start date: 1980 Smokeless tobacco: Never Tobacco comments: 03/15/06 Substance Use Topics Alcohol use: Yes Comment: social Vaping/E-Cigarette Use Vaping/E-Cigarette Substances Vaping/E-Cigarette Devices Family History Problem Relation Age of Onset Cancer Father Heart Disorder Mother Past Surgical History: Procedure Laterality Date HC CAROTID DUPLEX- BILATERAL COMPLETE Bilateral 05/13/2022 normal LUTHER, <50% stenosis, LICA, vertebrals antegrade MAMMOGRAM SCREENING BILATERAL Bilateral 06/30/2022 fibroglandular densities, asymmetry on left category 0 REMOVAL OF KIDNEY STONE, OVER 2CM Past Medical History: Diagnosis Date Anxiety state Calculus of kidney Renal Calculus Cellulitis of arm 07/08/2003 Admitted to [facility] for cellulitis right antecubital fossa related to injecting heroin. 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 Constitutional: General: She is not in acute distress. Appearance: Normal appearance. She is not toxic-appearing. HENT: Head: Normocephalic and atraumatic. Right Ear: External ear normal. Left Ear: External ear normal. Nose: Nose normal. Mouth/Throat: Mouth: Mucous membranes are moist. Cardiovascular: Pulses: Normal pulses. Pulmonary: Effort: Pulmonary effort is normal. No respiratory distress. Abdominal: Palpations: Abdomen is soft. Musculoskeletal: General: No deformity or signs of injury. Cervical back: Normal range of motion and neck supple. Skin: General: Skin is warm. Coloration: Skin is not pale. Neurological: General: No focal deficit present. Mental Status: She is alert and oriented to person, place, and time. Motor: No weakness. Gait: Gait normal. Psychiatric: Mood and Affect: Mood normal. Behavior: Behavior normal. Impression/Plan: 57 yo female with longstanding left partial staghorn calculus. Previous imaging studies are reviewed. PCNL would likely be needed to remove stone burden. Viable parenchyma noted on last CT imaging - will restage with KUB today and CT scan. Will reconsult Dr. Jimenez for consideration of management of her stone surgically. Will enlist the help of Nephrology for stone prevention. Will see the patient back in a few months to check on progress. Contact us sooner with any acute colicky pain. Above content is personally reviewed. Patient vocalizes good understanding of the treatment plan. Oliverio Corona MD 10:42 AM 03/10/2023 documented in this encounter Nursing Notes * Kelsey Charles LPN - 03/10/2023 10:32 AM EST New pt 1.2 cm r stone on 07/28/21 abd US C/o- intermittent pain, occasional hematuria documented in this encounter Plan of Treatment Upcoming Encounters Date Type Department Care Team (Late st Contact Info) Description 03/12/2023 4:00 PM EST Imaging Radiology [address] [facility] [place] [address] 03/19/2023 1:00 PM EST Office Visit Nephrology, [facility] [address] [facility] [place] [address] Ermelinda Oropeza MD [address] [facility] [place] [address] 04/02/2023 9:00 AM EST Office Visit Gynecology/Obstetrics [facility] [address] [facility] [place] [address] Monika Vasques CRNP [address] [facility] [place] [address] 06/30/2023 10:30 AM EDT Office Visit Urology, [facility] [place] [address] Oliverio Corona MD 27 [facility] [address] [place] [address] Scheduled Orders Name Type Priority Associated Diagnoses Orde r Schedule XR ABDOMEN 1 VIEW Medical Imaging Routine Calculus of kidney Ordered: 03/10/2023 CT ABD/PELVIS WO IV/ORAL CONTRAST Medical Imaging Routine Calculus of kidney Expected: 03/10/2023, Expires: 04/10/2024 Scheduled Referrals Name Type Priority Associated Diagnoses Orde r Schedule NEPHROLOGY REFERRAL OP Referral Within 30 days (routine) Calculus of kidney Ordered: 03/10/2023 UROLOGY REFERRAL OP Referral Within 30 da ys (routine) Calculus of kidney Ordered: 03/10/2023 Health Maintenance Due Date Last Done Comments COVID-19 Vaccine (#1) 02/04/1966 Depression Screening 1977 DTaP,Tdap,and Td Vaccines (1 - Tdap) 1984 Cologuard 2010 Colonoscopy 2010 Colorectal Cancer Screening 2010 Fecal Occult Blood Test 2010 Sigmoidoscopy 2010 LUNG CANCER SCREENING - USE SMARTSET [id number] 08/06/2015 Zoster Vaccines (1 of 2) 08/06/2015 [...] Advance Directives occurred with: Patient Care Teams Finance Admin Relationship Specialty Start Date End Date Tamika Roblero MD [address] [place] [address] [place] [address] PCP - General Family Medicine 10/29/22 documented as of this encounter
--- OUTSIDE RECORDS SUMMARY | 2023-07-31 12:21 | External Medical Summary | Summary of Care ---
Author Name Unknown Organization [facility] Address [address] [place] [address] Phone [phone] Care Team Providers Care Elevator Serviceman Name Role Phone Obed Hernandez MD Primary Care Provider Encounter Details Date Type Department Care Team (Late st Contact Info) Description 03/02/2023 Orders Only Outcomes Research Department [address] [place] [address] Khalida Joseph CHRA [employer] Research Other*[id number] Allergies Active Allergy Reactions Criticality Noted Date Comments Diflunisal Nausea/vomiting 07/12/2008 Iodine 08/08/2021 Other Allergy (See Comments) High 05/17/2018 Iodine Containing Compounds Tramadol High 12/07/2001 Ultram/headache Trazodone 08/21/2005 Headache, nausea documented as of this encounter (statuses as of 03/02/2023) Medications No known medicationsdocumented as of this encounter (statuses as of 03/02/2023) Active Problems Problem Noted Date Diagnosed Date Hepatitis C virus infection cured after antiviral drug therapy 02/02/2022 Overview: HCV treated; SVR confirmed 01/28/2022 Hydronephrosis, left 07/20/2018 Staghorn calculus 07/20/2018 Calculus of kidney Tobacco use disorder documented as of this encounter (statuses as of 03/02/2023) Resolved Problems Problem Noted Date Diagnosed Date Resolved Date Backache 04/06/2008 04/27/2022 Hepatitis C without hepatic coma 11/17/2002 02/02/2022 Overview: HCV treated; SVR confirmed 01/28/2022 positive antibodies, positive HCV RNA 2,780,000 as of 02/24/2021 Anxiety state 04/27/2022 Major depressive disorder Overview: ICD-10 update of inactive term Gastroesophageal reflux dise ase with esophagitis without hemorrhage 3 documented as of this encounter (statuses as of 03/02/2023) Immunizations Name Administration Dates Next Due HEP A - Hepatitis A (Adult > 18 yrs) 05/05/2006 Hepatitis B, 20+ yrs 01/28/2022,08/29/19,07/28/2021,2006 Pneumococcal Conjugate Vacci ne, 20-valent ([id number]) 04/20/2022 Seasonal Influenza, PF, 6 M & [...] 03/10/2023 10:30 AM EST Office Visit Urology, [facility] [address] [place] [address] Oliverio Corona MD [address] [place] [address] 04/02/2023 9:00 AM EST Office Visit Gynecology/Obstetrics [facility] [address] [place] [address] Monika Vasques CRNP [address] [place] [address] Scheduled Orders Name Type Priority Associated Diagnoses Orde r Schedule MYCODE SUBSEQUENT ADULT Lab Routine MyCode Research Other*[id number] Every 6 Months for 2 Occurrences starting 03/02/2023 until 03/21/2024 Health Maintenance Due Date Last Done Comments COVID-19 Vaccine (#1) 02/04/1966 Depression Screening 1977 DTaP,Tdap,and Td Vaccines (1 - Tdap) 1984 Cologuard 2010 Colonoscopy 2010 Colorectal Cancer Screening 2010 Fecal Occult Blood Test 2010 Sigmoidoscopy 2010 LUNG CANCER SCREENING - USE SMARTSET [id number] 08/06/2015 Zoster Vaccines (1 of 2) 08/06/2015 [...] as of this encounter Visit Diagnoses Diagnosis [employer] Other*[id number] documented in this encounter Advance Directives Latest Code Status on File Code Status Date Activated Date Inactivated Comments Full Code 07/20/2018 3:03 AM 07/22/2018 7:09 PM This order reflects the patients wishes and were consensually agreed upon. Question Answer Comments Discussion of Advance Directives occurred with: Patient Care Teams Elevator Serviceman Relationship Specialty Start Date End Date Obed Hernandez MD [address] [place] [address] [place] [address] PCP - General Family Medicine 10/29/22 documented as of this encounter
--- OUTSIDE RECORDS SUMMARY | 2023-07-31 12:21 | External Medical Summary | Summary of Care ---
Author Name Unknown Organization [facility] Address [address] [place] [address] Phone [phone] Care Team Providers Care Light Bulb Replacer Name Role Phone Obed Hernandez MD Primary Care Provider Reason for Visit * Reason Onset Date Comments Advice 02/19/2023 Encounter Details Date Type Department Care Team ([facility] st Contact Info) Description 02/19/2023 Telephone Family Medicine [address] [phone] Obed Hernandez MD [address] [place] [address] Advice Allergies Active Allergy Reactions Criticality [...] 01/28/2022,08/29/19 22,07/28/2021,2006 Pneumococcal Conjugate Vacci ne, 20-valent ([id number]) 04/20/2022 Seasonal Influenza, PF, 6 M & [...] of antibiotic. Please call pt back at [phone] documented in this encounter Plan of Treatment Upcoming Encounters Date Type Department Care Team (Late st Contact Info) Description 03/10/2023 10:30 AM EST Office Visit Urology, [facility] [address] [facility] [place] [address] Oliverio Corona MD 27 [facility] [address] [place] [address] 04/02/2023 9:00 AM EST Office Visit Gynecology/Obstetrics [facility] [address] [place] [address] Monika Vasques CRNP [address] [place] [address] Health Maintenance Due Date Last Done Comments COVID-19 Vaccine (#1) 02/04/1966 Depression Screening 1977 DTaP,Tdap,and Td Vaccines (1 - Tdap) 1984 Cologuard 2010 Colonoscopy 2010 Colorectal Cancer Screening 2010 Fecal Occult Blood Test 2010 Sigmoidoscopy 2010 LUNG CANCER SCREENING - USE SMARTSET [id number] 08/06/2015 Zoster Vaccines (1 of 2) 08/06/2015 [...] Advance Directives occurred with: Patient Care Teams Light Bulb Replacer Relationship Specialty Start Date End Date Obed Hernandez MD [address] [place] [address] [place] [phone] PCP - General Family Medicine 10/29/22 documented as of this encounter
--- OUTSIDE RECORDS SUMMARY | 2023-07-31 22:20 | External Medical Summary | Summary of Care ---
Author Name Unknown Organization [facility] Address [address] [facility] [place] [address] Phone [phone] Care Team Providers Care Big Data Developer Name Role Phone Unavailable Primary Care Provider Unavailabl e Encounter Details Date Type Department Care Team (Late st Contact Info) Description 07/30/2023 Result Scan Unspecified Department Ned Gonzalez MD [address] [place] [address] <No scans attached> Allergies Active Allergy Reactions Criticality Noted Date Comments Diflunisal Nausea/vomiting 07/12/2008 Iodine 08/08/2021 Other Allergy (See Comments) High 05/17/2018 Iodine Containing Compounds Tramadol High 12/07/2001 Ultram/headache Trazodone 08/21/2005 Headache, nausea documented as of this encounter (statuses as of 07/30/2023) Medications No known medicationsdocumented as of this encounter (statuses as of 07/30/2023) Active Problems Problem Noted Date Diagnosed Date Hepatitis C virus infection cured after antiviral drug therapy 02/02/2022 Overview: HCV treated; SVR confirmed 01/28/2022 Hydronephrosis, left 07/20/2018 Staghorn calculus 07/20/2018 Calculus of kidney Tobacco use disorder documented as of this encounter (statuses as of 07/30/2023) Resolved Problems Problem Noted Date Diagnosed Date Resolved Date Backache 04/06/2008 04/27/2022 Hepatitis C without hepatic coma 11/17/2002 02/02/2022 Overview: HCV treated; SVR confirmed 01/28/2022 positive antibodies, positive HCV RNA 2,780,000 as of 02/24/2021 Anxiety state 04/27/2022 Major depressive disorder Overview: ICD-10 update of inactive term Gastroesophageal reflux dise ase with esophagitis without hemorrhage 3 documented as of this encounter (statuses as of 07/30/2023) Immunizations Name Administration Dates Next Due HEP A - Hepatitis A (Adult > 18 yrs) 05/05/2006 Hepatitis B, 20+ yrs 01/28/2022,08/29/19 22,07/28/2021,2006 Pneumococcal Conjugate Vacci ne, 20-valent ([id number]) 04/20/2022 Seasonal Influenza, PF, 6 M & above, IM , (FluLaval or Fluzone) 12/22/2022,04/27/2022 documented as of this encounter Social History Tobacco Use Types Packs/Day Years Used Date Smoking Tobacco: Every Day Cigarettes 1 43 Started: 1980 Passive Smoke Exposure: Never Smokeless [...] 08/16/2023 3:15 PM EDT Office Visit Gynecology/Obstetrics [facility] [address] [place] [address] Ned Gonzalez MD [address] [place] [address] Health Maintenance Due Date Last Done Comments [...] Date/Time Associated Diagnosis Comments OUTSIDE LAB RESULTS 07/30/2023 documented in this encounter Results * OUTSIDE LAB RESULTS (07/30/2023) 07/30/2023 Ned Gonzalez MD LABORATORY documented in this encounter Advance Directives * Full Code (Latest Code Status on File) Date Activated Date Inactivated Comments 07/20/2018 3:03 AM 07/22/2018 7:09 PM This order r eflects the patients wishes and were consensually agreed upon. Question Answer Comments Discussion of Advance Directives occurred with: Patient
--- NOTE | 2023-08-03 11:54 | Discharge Summary ---
Date of Service August 03, 2023 Admission HPI Per Admitting Provider Patient is a 57 status post laparoscopic hysterectomy with bilateral salpingo- oophorectomy on 07/30/2023 details of surgery and the surgical note. Surgery was otherwise unremarkable patient was discharged home on 07/30/24 in stable condition. Discharge Data Procedures Performed Operation Date: 07/30/23 11:25 Actual Procedures p Total Laparoscopic Hysterectomy, Bilateral Salpingo-Oophorectomy, Cystoscopy(Not Applicable) - Ned Gonzalez MD Hospital Course (1) S/P laparoscopic hysterectomy: Post op course was unremarkable and pt is discharges home in stable condition. Discharge instructions including medications,diet, activity and follow up appointments are reviewed with pt.
== END 2023-07-31 11:30 | disposition home health service (06) ==
LOC: ASU 10:01 → 4E1 10:01